=== PATIENT | female | born 1945 | race African-American/Black ===

== ENCOUNTER 2019-12-31 10:38 | Inpatient (IN) | payer MEDICARE ==
--- NOTE | 2019-12-31 10:57 | RAD ---
PORTABLE CHEST 1 VIEW: Date: 12/31/2019 Time: 1045 hours HISTORY: Altered mental status, respiratory failure. FINDINGS/IMPRESSION: There is an endotracheal tube with tip at the level of the clavicular heads. The heart is enlarged. T he aorta is tortuous. No pneumothoraces, lobar consolidation, adrienne pulmonary edema, or large effusio ns are seen. The patient is rotated to the left. POS: OFF
[2019-12-31 11:01] LABS: Actual Bicarbonate (HCO3a) 23.5 mEq/L (22-28); Analyzer IN Cardio ER; Base Excess (BEa) -1.1 mEq/L (-2.0 to +3.0); CO2 Tension 38.8 mmHg (35.0-45.0); Calcium, Ionized 1.13 mmol/L (1.12-1.30); Carboxyhemoglobin (COHb) 0.3 gm% (0.0-3.0); Hemoglobin (Hb) 11.8 g/dL (12.0-16.0); O2 Tension (PaO2) 268.7 mmHg (> 70.0)
[2019-12-31 11:05] LABS: Puncture Site LRA
[2019-12-31] MEDS ORDERED: Atropine Sulfate 1 mg/10 ml Syringe ONE (11:07)
[2019-12-31 11:34] LABS: #Eosinphils 0.1 thou/uL (0.0-0.7); #Lymphocytes 0.8 thou/uL (1.20-3.40); #Monocytes 0.6 thou/uL (0.11-0.59); #Neutrophils 5.5 thou/uL (1.40-6.50); %Basophils 0.7 % (0.0-1.0); %Lymphocytes 11.3 % (21.0-51.0); %Monocytes 8.1 % (0.0-10.0); Hemoglobin 11.4 g/dL (12.0-16.0); Mean Corpuscular Hemoglobin 28.9 pg (27.0-31.0); Mean Corpuscular Volume 87.6 fL (78.0-98.0); Mean Platelet Volume 9.7 fL (7.4-10.4); Platelet Count 170 thou/uL (130-400); RBC Distribution Width 13.3 % (11.5-14.5); Red Blood Cell (RBC) Count 3.94 mill/uL (4.20-5.40)
[2019-12-31 11:48] LABS: ALT (SGPT) 9 U/L (8-55); AST (SGOT) 19 U/L (5-34); Albumin 3.6 g/dL (3.4-4.8); Alkaline Phosphatase 72 U/L (40-110); Anion Gap 10 mmol/L (10-20); BUN (Urea Nitrogen) 10 mg/dL (9.8-20.1); Bilirubin, Total 0.5 mg/dL (0.2-1.2); CK (CPK) 146 U/L (29-168); Calc. Creatinine Clearance 0 mL/min (70-130); Calcium 9.1 mg/dL (7.8-10.44); Carbon Dioxide 23 mmol/L (23-31); Chloride 110 mmol/L (98-107); Estimated GFR-MDRD Greater than 90; Globulin 3.2 g/dL (2.4-3.5); Glucose 154 mg/dL (83-110); Potassium 3.4 mmol/L (3.5-5.1); Protein, Total 6.8 g/dL (6.0-8.3); Sodium 140 mmol/L (136-145)
--- NOTE | 2019-12-31 11:50 | CT ---
CT BRAIN NONCONTRAST: DATE: 12/31/2019 HISTORY: 74-year-old female with altered mental status. Unresponsive. Dr. Arias discussed the findings by telephone with Dr. Anderson of the ER at 11:33 AM 12/31/2019 COMPARISON: 11/06/2016 MRI No prior CTs FINDINGS: New finding of hematomas within bilateral lateral, third, and fourth ventricles. Volume of hematoma i n the left lateral ventricle greater than in the right lateral ventricle. This causes another new finding of diffuse dilation of all ventricles. Associated new finding of low attenuation throughout the periventricular white matter, at least some of which represents transependymal migration of CSF. Contiguous with the intraventricular hematoma in the frontal horn of the left lateral ventricle, ther e is an approximately 3 x 3 cm intra-axial hematoma at the inferior aspect of the left basal ganglia. Moderate sized region of encephalomalacia and gliosis in the left frontal lobe represents old insult. The prior MRI demonstrates strong hemosiderin stain at this lesion. The prior MRI also demonstrates superficial siderosis along the pial surfaces of bilateral upper cere bral gyri, evidence for prior subarachnoid hemorrhage. Currently there is small amount of subarachnoid hemorrhage in the prepontine cistern, foramen magnum, foramina of Luschka bilaterally. Interpeduncular cistern is effaced and filled with low-intermediate density material. No acute calvarial fracture. No subdural or epidural hematoma. No major midline shift. IMPRESSION: 1) large amount of intraventricular hematoma causing obstructive hydrocephalus. 2) the source of the hemorrhage is probably the left basal ganglia, spilling into the left lateral ve ntricle. Ruptured aneurysm would be the other, less likely source. 3) relatively smaller volume of subarachnoid hemorrhage is due to spillover from the fourth ventricul ar intraventricular hemorrhage 4) old insult in left frontal lobe: Either prior old primary intra-axial hemorrhage or old hemorrhagi c conversion of prior infarction. 5) superficial siderosis demonstrated on prior MRI indicates prior episode(s) of subarachnoid hemorrh age.
--- NOTE | 2019-12-31 12:27 | RAD ---
CHEST 1 VIEW: HISTORY: Central line placement. Comparison: 12/31/2019 at 10:45 AM. FINDINGS: Cardiac silhouette:Enlarged cardiac silhouette. Lines and tubes: Endotracheal tube is redemonstrated. Interval placement of a nasogastric tube, exten ding beyond the diaphragm. Distal tip is not seen. Interval placement of a left-sided subclavian central venous catheter. Distal tip is presumed to be in the right atrium when taking leftward rotati on into consideration. Aorta: Atherosclerosis of the aortic knob. Abnormal appearance of the aortic knob is noted. Pulmonary vessels: Normal. Costophrenic angles: Small left-sided pleural effusion. Adjacent parenchyma changes. Lungs: Left lower lobe parenchymal changes. Pneumothorax: None. Osseous abnormalities: None. IMPRESSION: 1. Lines and tubes as above. 2. No pneumothorax. 3. Pleural and parenchymal changes in the left lung base. 4. Abnormal appearance of the aortic knob. Further interrogation with chest CT may be beneficial. Results of the study discussed with Dr. Anderson 12/31/2019 at 12:26 PM Code CR Transcribed Date/Time: 12/31/2019 12:49 PM
--- NOTE | 2019-12-31 12:34 | CT ---
EXAM: CT ANGIOGRAM OF THE HEAD AND NECK INDICATION: Stroke. COMPARISON: None. TECHNIQUE: CT angiogram of the head is performed in the axial plane. Three-dimensional reformatted images are altman bmitted for interpretation. FINDINGS: CTA OF THE HEAD WITH AND WITHOUT CONTRAST: POSTCONTRAST CT OF BRAIN: Pathologic enhancement: No pathologic enhancement the brain. Ventricles: Stable markedly dilatation of the ventricular system with extensive intraventricular hemo rrhage throughout the ventricular system. The etiology of the hemorrhage is likely centered in the left basal ganglion. White matter: Extensive white matter hypodensities due to chronic small vessel ischemic changes. Sinuses: Mild mucosal disease and mucous retention cyst in the left maxillary sinus. Partial opacific ation of the left ethmoid air cells. Orbits: Bilateral ocular lenses are appropriately located. Both globes are intact. Retrobulbar fat is preserved. Symmetric attenuation the optic nerves and ocular rectus muscles. Salivary glands:Symmetric attenuation of the visualized parotid and submandibular glands. CTA OF THE BRAIN: Intracranial internal carotid arteries:Symmetric enhancement and luminal diameter of the visualized c ervical internal carotid arteries. Symmetric enhancement and luminal diameter of the intracranial internal carotid arteries. Atherosclerosis involving both distal cavernous segments, without signific ant stenosis . Anterior circulation: Symmetric enhancement and luminal diameter of the A1 and M1 segments. Proximal A2 segments and proximal MCA branches have appropriate enhancement and luminal diameter. No evidence of occlusion. No evidence of aneurysm. Intracranial vertebral arteries and posterior circulation: Appropriate enhancement and luminal diamet er of the intracranial vertebral arteries. Note, right vertebral artery is dominant. Visualized left and right PICA artery origins are unremarkable. Both vertebral arteries supply the basilar arter y. The predominant supply to the basilar artery is the right vertebral artery. The basilar artery and bilateral P1 segments have appropriate enhancement and luminal diameter. No evidence of occlusion or aneurysm. IMPRESSION: 1. No hemodynamically significant stenosis, occlusion or aneurysmal formation. 2. Extensive intraventricular hemorrhage with marked dilatation of ventricular system. There appears to be intraparenchymal hemorrhage centered in the left basal ganglia. Results of the study discussed with Dr. Anderson 12/31/2019 12:34 PM. Code CR Transcribed Date/Time: 12/31/2019 12:53 PM
[2019-12-31] MEDS ORDERED: hydrALAZINE 20 MG/ML VIAL ONE (12:36)
[2019-12-31] MEDS ORDERED: Lidocaine 0.5%/Epinephrine 1:200,000 50 ml Vial ONE (12:58)
[2019-12-31] MEDS ORDERED: Thrombin 5000 UNITS/5 ML VIAL ONE (13:08)
[2019-12-31 13:23] LABS: INR-International Normal Ratio 0.9; PTT 27.5 SEC (22.9-36.1); Prothrombin Time 12.6 SEC (12.0-14.7)
[2019-12-31] MEDS ORDERED: Fentanyl 100 MCG/2 ML VIAL ONE (13:37)
--- NOTE | 2019-12-31 13:52 | PRG ---
DATE OF SERVICE: 12/31/2019 I personally examined the patient, spoke with the family, reviewed imaging and agree with the notes of Carl Spears PA-C dated 12/31/2019. Briefly, Kathe Tyson is a 74-year-old woman who has a history notable for head trauma about 10-11 years ago, resulting in a left frontal contusion and bleeding in the brain from which she recovered nicely. She was independent. She managed her own bank accounts. She worked. She managed her own household. She can dress. She can take care of all her activities of daily living without difficulty prior to this morning. She was found by her sister down in her home either on the way to or the way back from the shower because she was not clothed. She was brought to the emergency department, where CT examination of the brain revealed intraventricular hemorrhage and some parenchymal hemorrhage in the inferior left insula. Early hydrocephalus was noted as well and Neurosurgery was consulted. On arrival to the emergency department, she had been previously intubated. Her sedatives are wearing off. The pupils were reactive. There is some minimal motion of the upper extremities. This was not purposeful in approach withdrawal although flexion could not be ruled out. The CT was examined and the findings are noted above. I had a discussion with Ms. Tyson's sister and other family members. I discussed the possibility of vascular malformation or aneurysm causing the hemorrhage but the more likely scenario of hypertension being responsible. I discussed with them the fact that the intraventricular portion of the hemorrhage was clogging circulation pathways for cerebrospinal fluid and she was developing hydrocephalus compounding the neurological injury. I offered to them the placement of an external ventricular drain. Informed Consent: I discussed indications, risks, benefits, alternatives, and expected outcomes from surgery. The risks I discussed included, but were not limited to, bleeding, infection, brain damage, stroke, seizure, paralysis, dependence for care, cardiopulmonary complications of anesthesia, and . They understand the risks. They would like to proceed. We will take Ms. Tyson to the operating room and place external ventricular drain and then send her upstairs to the ICU for continued management. Job ID: [id number]
[2019-12-31] MEDS ORDERED: EPHEDRINE 25 MG/5 ML SYRINGE ONE (14:38)
[2019-12-31] MEDS ORDERED: Rocuronium Bromide 10 MG/ML (10ML VIAL) ONE (14:38)
[2019-12-31] MEDS ORDERED: Promethazine HCl 12.5 MG SUPP PR PRN (14:48)
[2019-12-31] MEDS ORDERED: Acetaminophen 650 MG Suppository PR PRN (14:48)
[2019-12-31] MEDS ORDERED: Mag-Al 1200 mg/1200 mg/30 ML UDCUP PO PRN (14:48)
[2019-12-31] MEDS ORDERED: Morphine 4 MG/ML VIAL SLOW IVP PRN (14:48)
[2019-12-31] MEDS ORDERED: Promethazine HCl 25 MG/ML VIAL IM PRN (14:48)
[2019-12-31] MEDS ORDERED: Promethazine 25 MG TAB PO PRN (14:48)
[2019-12-31] MEDS ORDERED: Ondansetron PF 4 MG/2 ML Vial IVP PRN (14:48)
[2019-12-31] MEDS ORDERED: Docusate 100 MG CAP PO PRN (14:48)
[2019-12-31] MEDS: Sodium Chloride 0.9% 1,000 ML IV SCH (15:00)
--- NOTE | 2019-12-31 15:02 | HP ---
PRIMARY CARE PHYSICIAN: The patient currently does not have a primary care physician. CHIEF COMPLAINT: Found down at home. HISTORY OF PRESENT ILLNESS: Ms. Tyson is currently intubated and unable to give any history. I spoke with the patient's sister who tells me that Ms. Tyson has not seen a primary care doctor in some time. She says that she talked to her yesterday evening and she seemed fine. They had come back from charge. The patient lives home by herself and she still works. She got a call from the patient's job that said she never showed up for work. As a result, the patient's sister went to go check on her and found her down at home in the bathroom. She believes she may have been getting ready to take a shower, because she was undressed, and there was water on the floor. EMS was called. She was intubated in the field. She was brought to the hospital, where she was found to be hypothermic and bradycardic. A CT scan in the ER demonstrated a large intraventricular bleed. She is being admitted to the ICU, and Neurosurgery has been consulted. Otherwise, no other history is obtainable at this time. REVIEW OF SYSTEMS: Also unobtainable. PAST MEDICAL HISTORY: It is elucidated from the records and includes diabetes mellitus as well as hypertension and hyperlipidemia. PAST SURGICAL HISTORY: Unknown. She may have had a hysterectomy. ALLERGIES: NO KNOWN DRUG ALLERGIES. SOCIAL HISTORY: Also unobtainable. FAMILY HISTORY: Unknown. MEDICATIONS: These were taken from the patient's pharmacy records and includes metformin, losartan, and pravastatin, and her sister says that she believes she takes 81 mg aspirin daily. PHYSICAL EXAMINATION: GENERAL: She is intubated. She is currently not responding. HEENT: Her pupils are pinpoint and minimally reactive. NECK: She is in a C-collar. LUNGS: Clear to auscultation. No wheezing. No rales. No rhonchi. CARDIOVASCULAR: She has a normal S1 and S2. I did not appreciate an S3 or S4. No murmurs, clicks, or rubs. ABDOMEN: Soft and positive for bowel sounds. EXTREMITIES: There is no edema. NEUROLOGIC: Pupils are small, minimally reactive. She had decreased reflexes and a negative Babinski. SKIN AND INTEGUMENT: No skin changes. No rash. Again, CT scan showed a large intraventricular hemorrhage in both bilateral lateral ventricles, third and fourth ventricles as well. The patient had an EKG showing sinus bradycardia with Diaz waves in V4 and V5. LABORATORY DATA: White blood cell count is 7, hemoglobin 11.4, hematocrit is 34.5, and platelet count is 120. Sodium 140, potassium 3.4, chloride is 110, CO2 is 23, BUN of 10, creatinine 0.71, glucose is 154, and lactic acid is 3.0. ASSESSMENT: 1. This is a pleasant 74-year-old female, who is being admitted for a large intracerebral hemorrhage. Neurosurgery has been consulted, and the plan is to potentially place an intraventricular drain. The location of the bleed is thought to be from the left basal ganglion and could likely be a hypertensive bleed. For this reason, we will place her on a Cardene drip if needed. While they are in decision making regarding surgery, the blood pressure will be managed with IV hydralazine. 2. Diabetes mellitus. We will check her blood sugars and place her on a sliding scale. 3. We will monitor her electrolytes carefully and further recommendations to follow. Job ID: [id number]
--- NOTE | 2019-12-31 15:14 | OP ---
DATE OF PROCEDURE: 12/31/2019 ENGAGEMENT LIAISON: Carl Spears PA-C PREOPERATIVE INDICATION: Prevent neurological deterioration. PREOPERATIVE DIAGNOSES: Intraventricular hemorrhage and hydrocephalus. POSTOPERATIVE DIAGNOSES: Intraventricular hemorrhage and hydrocephalus. PROCEDURE PERFORMED: Placement of a right frontal external ventricular drain. PREOPERATIVE MEDICATION: Ancef 2 g IV. DRAIN NUMBER: One. DRAIN TYPE: External ventricular. DESCRIPTION OF PROCEDURE: The patient was brought to the operating room. The patient had previously been intubated. General anesthesia was induced. Hair was removed from the right side of the scalp with electric clippers. We planned out our incision anterior to the coronal suture in the midpupillary line on the right side. Under a planned incision, we infused local anesthetic. The scalp was sterilely prepped and draped. We opened a curvilinear incision with a 10 blade knife, and we controlled bleeding with bipolar cautery. We folded our scalp flap posteriorly and exposed the frontal bone. Anterior to the coronal suture, we placed a sukhjinder hole with a high-speed drill and a perforating bit. We waxed the bone edges. We coagulated the dura. We opened the dura in a cruciate fashion with a 15 blade knife and coagulated back the leaflets. We coagulated the aldo. We brought the external ventricular drain catheter into the field, and with a stylet, we advanced the catheter through the brain parenchyma into the frontal horn of the right lateral ventricle. This was done at one pass. The stylet was removed at 4.5 cm on the brain surface. Brisk CSF flow was noted. We advanced until the 7-cm monae was at the superior bone margin. We tunneled posteriorly through a separate stab incision. We irrigated with bacitracin irrigation. We closed our incision in anatomical layers. We tacked down the drain with multiple tack sutures, and we placed a sterile adhesive dressing. We connected the distal end of the ventricular catheter to the Hobbs drainage system. This was a clean case, no contamination. Job ID: [id number]
--- NOTE | 2019-12-31 15:20 | RAD ---
Portable frontal chest radiograph: 12/31/2019 COMPARISON: 12/31/2019 HISTORY: Intubated patient FINDINGS: This study is performed at 2:43 PM and compared to the prior examination performed 12:14 PM . Supine imaging limits assessment for pneumothorax and pleural fluid. Stable endotracheal tube, nasogastric tube, and left-sided vascular catheter. Mild linear density in the medial left lung base, nonspecific. IMPRESSION: No significant interval change.
[2019-12-31] MEDS ORDERED: Dextrose 5% in Water 1,000 ML IV PRN (15:33)
[2019-12-31] MEDS ORDERED: Dextrose 50% Abboject 50 ML SYRINGE SLOW IVP PRN (15:33)
[2019-12-31] MEDS ORDERED: HumaLOG 300 UNITS/3 ML VIAL SC PRN ×2 (15:33)
[2019-12-31 15:37] LABS: Actual Bicarbonate (HCO3a) 19.6 mEq/L (22-28); Base Excess (BEa) -3.3 mEq/L (-2.0 to +3.0); CO2 Tension 28.5 mmHg (35.0-45.0); Calcium, Ionized 1.14 mmol/L (1.12-1.30); Carboxyhemoglobin (COHb) 0.4 gm% (0.0-3.0); Hemoglobin (Hb) 10.6 g/dL (12.0-16.0); O2 Tension (PaO2) 127.5 mmHg (> 70.0); Potassium - ABG Lab 3.53 mmol/L (3.70-5.30); pH, Arterial 7.46 (7.35-7.45)
[2019-12-31 15:38] LABS: Puncture Site LRA
[2019-12-31 15:39] LABS: Lactic Acid 3.3 mmol/L (0.5-2.2)
[2019-12-31 15:39] LABS: ALV-art Gradient 122.075 (0-20)
[2019-12-31] MEDS ORDERED: Iopamidol-370 76% 500 ML 1 ML ONE (16:27)
[2019-12-31] MEDS: CEFAZOLIN 2 GM in Premix Bag 1 BAG IVPB SCH (16:58)
[2019-12-31 18:31] LABS: Bacteria/HPF None Seen HPF (None Seen); Bilirubin Negative (Negative); Blood, Urine Trace (Negative); Clarity Clear (Clear); Glucose, Urine (Dipstick) Normal (Negative); Leukocyte Negative Leu/uL (Negative); Nitrite Negative (Negative); Protein, Urine (Dipstick) Negative (Neg-Trace); Squamous Epithelial None Seen HPF (0-3); Urobilinogen Normal mg/dL (Less than 2); WBC/HPF 0-3 HPF (0-3)
[2019-12-31 18:33] LABS: Urine Culture Reflex No No
[2019-12-31] MEDS: Pantoprazole 40 MG VIAL IVP SCH (21:27)
[2019-12-31] MEDS: hydrALAZINE 20 MG/ML VIAL SLOW IVP PRN (23:26)
[2020-01-01] MEDS: CEFAZOLIN 2 GM in Premix Bag 1 BAG IVPB SCH ×3 (00:07→16:58)
--- NOTE | 2020-01-01 02:17 | CON ---
DATE OF CONSULTATION: 12/31/2019 Date of consult was 12/31/2019 from the emergency room. REASON FOR CONSULT: Stroke. The patient is not responding and intubated. CHIEF COMPLAINT: Previously intubated patient, not responding. HISTORY OF PRESENT ILLNESS: Ms. Tyson is a 74-year-old woman who had a history 10 or 11 years ago of a left frontal contusion with bleeding in the brain, from which she recovered. She was independent. She managed her own bank accounts. She worked, managed her own household, she could dress, and take care of all her activities of daily living without difficulties prior to this morning. She was found by her sister unconscious on the floor early this morning, called EMT, and was brought to this hospital. REVIEW OF SYSTEMS: Systems not reviewed due to the intubated patient. PAST MEDICAL HISTORY: Hypertension, hyperlipidemia, and diabetes. PAST SURGICAL HISTORY: Unknown. ALLERGIES: NO KNOWN DRUG ALLERGIES. SOCIAL HISTORY: Unobtainable. FAMILY HISTORY: Unknown. MEDICATIONS: Confirmed by pharmacist; 1. Metformin. 2. Losartan. 3. Pravastatin. PHYSICAL EXAMINATION: CONSTITUTION: The patient is unresponsive. HEENT: Her pupils are pinpoint and minimally reactive. NECK: She is in a C-collar. NEUROLOGICAL: Pupils are small, minimally reactive. She has decreased reflexes and negative Babinski. Motor and strength unattainable. LABORATORY DATA: Platelets 170,000. PT is 12.6, INR 0.9, and APTT 27.5. IMAGING: CT examination of the brain revealed intraventricular hemorrhage and some bronchial hemorrhage and inferior left insula. Early hydrocephalus was noted. Angiography was negative for for aneurysm. ASSESSMENT AND PLAN: External ventricular drain placement in the OR. Consent was given by her sister. INFORMED CONSENT: We discussed the indications, risks, benefits, alternatives, and expected outcomes from surgery. The risks I discussed included, but were not limited to, bleeding, infection, brain damage, stroke, seizure, paralysis dependent for care, cardiopulmonary complications of anesthesia, and . The family understood the risks, and they would like to proceed. Job ID: [id number] MTDD
[2020-01-01 04:33] LABS: #Lymphocytes 0.7 thou/uL (1.20-3.40); #Monocytes 0.8 thou/uL (0.11-0.59); #Neutrophils 7.3 thou/uL (1.40-6.50); %Basophils 0.1 % (0.0-1.0); %Eosinophils 0.2 % (0.0-10.0); %Lymphocytes 7.7 % (21.0-51.0); Hemoglobin 10.3 g/dL (12.0-16.0); Mean Corpuscular HGB CONC 34.4 g/dL (32.0-36.0); Mean Corpuscular Hemoglobin 29.6 pg (27.0-31.0); Mean Corpuscular Volume 86.1 fL (78.0-98.0); Platelet Count 170 thou/uL (130-400); RBC Distribution Width 13.3 % (11.5-14.5); Red Blood Cell (RBC) Count 3.48 mill/uL (4.20-5.40); White Blood Cell (WBC) Count 8.8 thou/uL (4.8-10.8)
[2020-01-01 04:55] LABS: Anion Gap 10 mmol/L (10-20); BUN (Urea Nitrogen) 7 mg/dL (9.8-20.1); Calc. Creatinine Clearance 104 mL/min (70-130); Carbon Dioxide 24 mmol/L (23-31); Chloride 112 mmol/L (98-107); Estimated GFR-MDRD Greater than 90; Glucose 118 mg/dL (83-110); Potassium 3.4 mmol/L (3.5-5.1); Sodium 143 mmol/L (136-145)
[2020-01-01] MEDS: hydrALAZINE 20 MG/ML VIAL SLOW IVP PRN ×4 (05:47→18:35)
[2020-01-01] MEDS: Sodium Chloride 0.9% 1,000 ML IV SCH ×2 (05:50→17:02)
[2020-01-01 07:09] LABS: Actual Bicarbonate (HCO3a) 21.8 mEq/L (22-28); Base Excess (BEa) -0.3 mEq/L (-2.0 to +3.0); CO2 Tension 27.8 mmHg (35.0-45.0); Calcium, Ionized 1.18 mmol/L (1.12-1.30); Carboxyhemoglobin (COHb) 0.3 gm% (0.0-3.0); Hemoglobin (Hb) 10.9 g/dL (12.0-16.0); O2 Tension (PaO2) 106.1 mmHg (> 70.0); Potassium - ABG Lab 3.24 mmol/L (3.70-5.30); pH, Arterial 7.51 (7.35-7.45)
[2020-01-01 07:10] LABS: Puncture Site LRA
--- NOTE | 2020-01-01 07:13 | PRG ---
DATE OF SERVICE: 01/01/2020 I saw Kathe Tyson in the ICU this morning. She has been down for her morning CT scan and has returned. Sometime thereafter, she had an increase in the amount of blood in her CSF drainage that has dissipated since. No other events reported. Overnight, the highest temperature recorded was early this morning at 100.0 degrees Fahrenheit. Blood pressures have been between the 120s and 160s. ICP has been 0 to 12. On examination, Ms. Tyson does not open her eyes to stimulus. However, she is now localizing with the left upper extremity and withdrawing the legs. This is an improvement in neurological function since yesterday. In the morning, CT scan shows decrease in the size of the ventricular system. We will continue to leave the drain in on Ms. Tyson. I anticipate that it will be there at least a week. We will continue antibiotics while it is in. We will monitor her neurological function. At some point next week, the family will have to decide on tracheostomy and gastrostomy. They are aware of this decision coming. Over the weekend, I do not plan any changes. We will leave the drain open at 5 cm. Job ID: [id number] [facility]
--- NOTE | 2020-01-01 07:20 | CON ---
DATE OF CONSULTATION: Kathe Tyson is a 74-year-old female from [place], [place]. She was found down at home. Sister states, her name is Sandra, that she did not show up to work, 911 was called and she was found at home on the floor. She was intubated, brought to the hospital here which revealed a large intraventricular hemorrhage. She is undergoing emergency frontal ventriculostomy to control her hemorrhage as well as her hydrocephalus. Presently intubated on the vent. Sister gives adequate history. PAST MEDICAL HISTORY: Diabetes, hypertension, hyperlipidemia, previous some kind of neurological problem, frontal injury. PAST SURGICAL HISTORY: Hysterectomy. CHRONIC MEDICATIONS: Unknown. The sister may have some information. SOCIAL AND FAMILY HISTORY: Unremarkable. ALLERGIES: NONE. REVIEW OF SYSTEMS: Otherwise, negative. PHYSICAL EXAMINATION: VITAL SIGNS: In the ICU pulse 66, blood pressure 165/85, sats 100%, respirations 16. CHEST: Decreased breath sounds, no wheezing. CARDIAC: Normal S1, S2. No gallops. ABDOMEN: No masses. LABORATORY DATA: White count 7000, H and H of 11 and 35, platelet count 170. PO2 is 127, pCO2 28, pH 7.46, 16, 40, and 500 tidal volume. Potassium 3.4. Lactic acid elevated. BNP is normal. Glucose 154. IMPRESSION: 1. Intraventricular hemorrhage, respiratory failure. 2. History of diabetes. 3. Hypertension. 4. High cholesterol. 5. Previous right frontal contusion. PLAN: Continue vent support, obviously she is not weanable at this stage until neurological status improves. She is on empiric antibiotics. We will start proton pump inhibitors, nutrition in the next 24 to 48 hours. Discuss with family thereafter. Prognosis is guarded. This is a 45-minute critical time. ADDENDUM: This sister now tells me that the only doctor she has been seeing now is a yard rigger. His name is Dr. Marcelo, who has been giving her all her medications for diabetes, hypertension. She has no other primary care physician that she sees. She has a leaky valve. Has had no other cardiac intervention apparently. 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 When she did not arrive, the group home called family to notify about her absence. I am going to order an echocardiogram to assess the cardiac function. Her blood pressure is low. Going to give her a fluid challenge. This is an ongoing note and 45-minute critical care time as above. Job ID: [id number]
[2020-01-01] MEDS ORDERED: CCU Electrolyte Replacement 1 EACH FS ONE (07:35)
[2020-01-01] MEDS ORDERED: PHOS-NAK 1 PKT PACK PO PRN ×2 (07:41)
[2020-01-01] MEDS ORDERED: Magnesium 2 GM/50 ML 2 GM in Premix Bag 1 BAG IVPB PRN (07:41)
[2020-01-01] MEDS ORDERED: CCU ELECTROLYTE REPLACEMENT PROTOCOL FS PRN (07:41)
[2020-01-01] MEDS ORDERED: Potassium Chloride 20 MEQ TAB PO PRN (07:41)
[2020-01-01] MEDS ORDERED: Potassium Chloride 40 MEQ in Premix Bag 1 BAG IVPB PRN (07:41)
[2020-01-01] MEDS ORDERED: Magnesium Oxide 400 MG TAB PO PRN ×2 (07:41)
[2020-01-01] MEDS ORDERED: Potassium Phosphate 15 MMOL in Sodium Chloride 0.9% 250 ML 250 ML IV PRN (07:41)
[2020-01-01] MEDS ORDERED: Potassium Chloride 40 MEQ in Sodium Chloride 0.9% 250 ML 250 ML IVPB PRN (07:41)
[2020-01-01] MEDS ORDERED: Potassium Phosphate 12 MMOL in Sodium Chloride 0.9% 250 ML 250 ML IV PRN (07:41)
[2020-01-01] MEDS ORDERED: Potassium Phosphate 9 MMOL in Sodium Chloride 0.9% 100 ML IVPB PRN (07:41)
--- NOTE | 2020-01-01 08:08 | CT ---
CT OF THE BRAIN WITHOUT CONTRAST: INDICATION: Status post craniotomy. COMPARISON: Prior CT of the brain dated 12/31/2019 at 11:22 a.m. FINDINGS: There has been interval placement of a right frontal sukhjinder hole and a ventricular catheter projecting into the anterior horn of the right lateral ventricle with the tip projecting to the level of the int erventricular septum. The hematoma seen within the left basal ganglia is stable measuring 3.3 cm. T here is stable prominent intraventricular hemorrhage filling the lateral ventricles, third ventricle, and fourth ventricle. The degree of distention of the lateral ventricles appears relatively stable. The degree of distention of the third ventricle is slightly less prominent measuring 1. Cm where pr eviously it measured 1.4 cm. The prominence of the lateral temporal horn to the lateral ventricle ap pears slightly less measuring 9.8 mm where previously it measured 1.2 cm. There is stable crowding o f the basilar cisterns. No midline shift is evident. Chronic small-vessel white matter ischemic dalila nge with a remote insult involving the left frontal lobe is similar appearing. Air fluid level seen within the left maxillary sinus is slightly more pronounced than on prior exam. IMPRESSION: 1. Interval right frontal sukhjinder hole with placement of an intraventricular shunt catheter. The degre e of hydrocephalus appears mildly improved from the prior exam. The degree of basilar cistern crowdi ng is similar-appearing. No midline shift is evident. 2. Size of intraparenchymal hematoma in the left basal ganglia is similar-appearing. 3. Stable chronic ischemic change. POS: NASRIN
--- NOTE | 2020-01-01 08:49 | PRG ---
DATE OF SERVICE: 01/01/2020 SUBJECTIVE: Kathe Tyson this morning remains intubated in the vent, unresponsive. Pressure device in place. OBJECTIVE: VITAL SIGNS: Pulse 70, blood pressure 130/70, saturations are 100%, respiratory rate 18, and afebrile. CHEST: No wheezing or crackles. CARDIAC: Normal S1 and S2. No gallops. ABDOMEN: No masses. LABORATORY DATA: Lytes are normal. White count 8000, platelet count is normal, and H and H unremarkable. PO2 of 106, pCO2 of 27, pH of 7.51. ASSESSMENT: 1. Intraventricular hemorrhage. 2. Respiratory failure. 3. Hypertension. PLAN: At this stage, continue vent support. Start low-dose feedings. She has had significant left basal ganglia intraparenchymal hematoma. One-half hour of critical time. We will follow. She is still not weanable. Job ID: [id number]
[2020-01-01] MEDS ORDERED: Prevnar 13-Val Conj/PF 0.5 ML SYRINGE IM ONE (09:00)
[2020-01-01] MEDS ORDERED: FLU VACC TS2019-20(65YR UP)/PF 180 MCG/0.5 ML SYRINGE IM ONE (09:00)
--- NOTE | 2020-01-01 09:35 | RAD ---
PORTABLE CHEST: History: Respiratory distress. Comparison: Prior day's study. FINDINGS: Endotracheal and NG tubes and left subclavian line are all unchanged in position. Patient is rotated on this examination making the retrocardiac region difficult to assess. I do not see any definite int erval change. IMPRESSION: Stable exam. POS: TPC
[2020-01-01] MEDS: Pantoprazole 40 MG VIAL IVP SCH ×2 (09:52→21:43)
--- NOTE | 2020-01-01 11:17 | PDOC.HOSPP ---
- Subjective Encounter Date: 01/01/20 Encounter Time: 11:15 Subjective: Ms. Tyson was seen today in follow-up of ICH and hypertension. She is intubated. She will respond to pain. - Objective Vital Signs & Weight: Vital Signs (12 hours) Temp Pulse Resp BP 01/01/20 10:37 67 147/72 H 01/01/20 10:05 70 139/64 01/01/20 06:50 76 115/57 L 01/01/20 06:00 23 H 01/01/20 05:47 62 163/75 H 01/01/20 04:00 100.0 F H 21 H 01/01/20 02:00 19 01/01/20 00:00 98.9 F 21 H 12/31/19 23:26 65 153/75 H Weight Admit Weight 193 lb 5.526 oz Weight 193 lb 5.536 oz Most Recent Monitor Data Heart Rate from ECG 73 NIBP 124/59 NIBP BP-Mean 80 Respiration from ECG 22 SpO2 100 I&O: 12/31/19 01/01/20 01/02/20 06:59 06:59 06:59 Intake Total 1631 Output Total 3549 Balance -1918 Result Diagrams: 01/01/20 03:15 01/01/20 03:15 Additional Labs: Accuchecks 01/01/20 01/01/20 01/01/20 10:21 04:28 00:15 POC Glucose 108 125 H 116 H 12/31/19 12/31/19 12/31/19 20:41 17:08 10:46 POC Glucose 124 H 131 H 150 H Hospitalist ROS - Medication Medications: Active Medications Generic Name Dose Route Start Last Admin Trade Name Freq PRN Reason Stop Dose Admin Hydralazine HCl 5 mg 12/31/19 14:48 01/01/20 10:37 Apresoline SLOW IVP 5 mg Q15MIN PRN Administration SBP > 160 mmHg Cefazolin Sodium/Dextrose 2 gm 50 mls @ 100 mls/hr 12/31/19 17:00 01/01/20 09 :52 / Device IVPB 50 mls [id number],1700 LALITA Administration Sodium Chloride 1,000 mls @ 75 mls/hr 12/31/19 15:00 01/01/20 05:50 Normal Saline 0.9% IV 1,000 mls .[id number] LALITA Administration Pantoprazole Sodium 40 mg 12/31/19 21:00 01/01/20 09:52 Protonix IVP 40 mg Q12HR LALITA Administration Potassium Chloride 40 meq 01/01/20 07:41 01/01/20 10:26 Klor-Con PER TUBE 40 meq ASDIR PRN Administration FOR SERUM K+ 2.5-3.5 - Exam Eye: PERRL, anicteric sclera Heart: RRR, no murmur, no gallops, no rubs, normal peripheral pulses Respiratory: CTAB, no wheezes, no rales, no ronchi, normal chest expansion, no tachypnea, normal percussion Gastrointestinal: soft, non-tender, non-distended, normal bowel sounds, no palpable masses, no hepatomegaly Extremities: no cyanosis Neurological: hemiplegia (right sided weakness, and aphasia, and some response to pain) Hosp A/P (1) ICH (intracerebral hemorrhage) Code(s): I61.9 - NONTRAUMATIC INTRACEREBRAL HEMORRHAGE, UNSPECIFIED Status: Acute (2) Hypertension Code(s): I10 - ESSENTIAL (PRIMARY) HYPERTENSION Status: Acute (3) Hypertensive crisis Code(s): I16.9 - HYPERTENSIVE CRISIS, UNSPECIFIED Status: Acute (4) Diabetes mellitus type 2 in nonobese Code(s): E11.9 - TYPE 2 DIABETES MELLITUS WITHOUT COMPLICATIONS Status: Acute - Plan * Acute ICH -s/p ventricular drain placement * She continues with Ventilator support * HTN- is a bit elevated- goal is for a systolic blood pressure under 140. Will re-start Losartan, and continue Amlodipine, and PRN medications * DM- will continue with SSI for now, her blood glucose has been on the lower side- anticipate re-starting metformin after her tube feeds have been initiated * Continue as per NS recommendations
[2020-01-01] MEDS ORDERED: Losartan 25 MG TAB PO ONE (11:30)
[2020-01-02] MEDS: CEFAZOLIN 2 GM in Premix Bag 1 BAG IVPB SCH ×3 (00:56→17:34)
[2020-01-02 03:55] LABS: #Lymphocytes 0.9 thou/uL (1.20-3.40); #Monocytes 1.3 thou/uL (0.11-0.59); #Neutrophils 9.4 thou/uL (1.40-6.50); %Basophils 0.3 % (0.0-1.0); %Eosinophils 0.1 % (0.0-10.0); %Lymphocytes 7.4 % (21.0-51.0); %Monocytes 10.9 % (0.0-10.0); %Neutrophils 81.3 % (42.0-75.0); Hemoglobin 10.2 g/dL (12.0-16.0); Mean Corpuscular Hemoglobin 29.6 pg (27.0-31.0); Mean Corpuscular Volume 87.1 fL (78.0-98.0); Mean Platelet Volume 10.1 fL (7.4-10.4); Platelet Count 163 thou/uL (130-400); RBC Distribution Width 13.6 % (11.5-14.5); Red Blood Cell (RBC) Count 3.46 mill/uL (4.20-5.40); White Blood Cell (WBC) Count 11.5 thou/uL (4.8-10.8)
[2020-01-02 04:15] LABS: ALT (SGPT) Less than 7 U/L (8-55); AST (SGOT) 10 U/L (5-34); Albumin 3.6 g/dL (3.4-4.8); Alkaline Phosphatase 64 U/L (40-110); Anion Gap 10 mmol/L (10-20); BUN (Urea Nitrogen) 8 mg/dL (9.8-20.1); Bilirubin, Total 0.5 mg/dL (0.2-1.2); Calc. Creatinine Clearance 101 mL/min (70-130); Calcium 9.3 mg/dL (7.8-10.44); Carbon Dioxide 25 mmol/L (23-31); Chloride 113 mmol/L (98-107); Estimated GFR-MDRD Greater than 90; Globulin 3.2 g/dL (2.4-3.5); Glucose 126 mg/dL (83-110); Potassium 3.4 mmol/L (3.5-5.1); Protein, Total 6.8 g/dL (6.0-8.3); Sodium 145 mmol/L (136-145)
[2020-01-02 06:37] LABS: Actual Bicarbonate (HCO3a) 24.6 mEq/L (22-28); Base Excess (BEa) 1.5 mEq/L (-2.0 to +3.0); CO2 Tension 33.2 mmHg (35.0-45.0); Calcium, Ionized 1.22 mmol/L (1.12-1.30); Carboxyhemoglobin (COHb) 0.3 gm% (0.0-3.0); Hemoglobin (Hb) 10.2 g/dL (12.0-16.0); O2 Tension (PaO2) 120.3 mmHg (> 70.0); Potassium - ABG Lab 3.96 mmol/L (3.70-5.30); Puncture Site RRA; pH, Arterial 7.49 (7.35-7.45)
[2020-01-02] MEDS: Losartan 25 MG TAB PO SCH (09:05)
[2020-01-02] MEDS: Pantoprazole 40 MG VIAL IVP SCH ×2 (09:06→20:33)
[2020-01-02] MEDS: Sodium Chloride 0.9% 1,000 ML IV SCH (09:06)
[2020-01-02] MEDS ORDERED: Sodium Chloride 0.9% 1,000 ML IV SCH (10:12)
--- NOTE | 2020-01-02 10:20 | PDOC.HOSPP ---
- Subjective Encounter Date: 01/02/20 Encounter Time: 10:18 Subjective: THe patient is unresponsive . She is still intubated, is not on any sedation. She withdraws to painful stimuli, is weakest on RUE per nursing staff. She is s/ p EVD two days ago Tube feeds were started yesterday, currently at 45 - Objective Vital Signs & Weight: Vital Signs (12 hours) Temp Pulse Resp BP 01/02/20 10:03 76 146/70 H 01/02/20 07:33 74 131/66 01/02/20 06:00 23 H 01/02/20 04:45 80 01/02/20 04:00 98.8 F 18 01/02/20 02:00 19 01/02/20 01:10 70 137/61 01/02/20 00:00 98.4 F 17 Weight Admit Weight 193 lb 5.526 oz Weight 193 lb 5.536 oz Most Recent Monitor Data Heart Rate from ECG 79 NIBP 138/69 NIBP BP-Mean 92 Respiration from ECG 19 SpO2 97 I&O: 01/01/20 01/02/20 01/03/20 06:59 06:59 06:59 Intake Total 1631 2907 Output Total 3549 2153 Balance -1918 754 Result Diagrams: 01/02/20 03:00 01/02/20 03:00 Additional Labs: Accuchecks 01/01/20 01/01/20 01/01/20 22:24 16:04 10:21 POC Glucose 141 H 106 108 Hospitalist ROS - Review of Systems ROS unobtainable: due to endotracheal tube - Medication Medications: Active Medications Generic Name Dose Route Start Last Admin Trade Name Freq PRN Reason Stop Dose Admin Hydralazine HCl 5 mg 12/31/19 14:48 01/01/20 18:35 Apresoline SLOW IVP 5 mg Q15MIN PRN Administration SBP > 160 mmHg Cefazolin Sodium/Dextrose 2 gm 50 mls @ 100 mls/hr 12/31/19 17:00 01/02/20 09 :05 / Device IVPB 50 mls [id number] LALITA Administration Potassium Chloride 40 meq/ 100 mls @ 50 mls/hr 01/01/20 07:41 01/02/20 04:34 Device IVPB 100 mls ASDIR PRN Administration FOR SERUM K+ 2.5 - 3.5 Losartan Potassium 25 mg 01/02/20 09:00 01/02/20 09:05 Cozaar PO 25 mg DAILY LALITA Administration Pantoprazole Sodium 40 mg 12/31/19 21:00 01/02/20 09:06 Protonix IVP 40 mg Q12HR LALITA Administration Potassium Chloride 40 meq 01/01/20 07:41 01/01/20 10:26 Klor-Con PER TUBE 40 meq ASDIR PRN Administration FOR SERUM K+ 2.5-3.5 - Exam General Appearance: NAD Eye: PERRL, anicteric sclera ENT: normocephalic atraumatic, no oropharyngeal lesions Neck: supple, symmetric, no JVD Heart - other findings: systolic murmur left second intercostal space Respiratory: negative: CTAB, no wheezes, no rales Gastrointestinal: negative: soft, non-tender, non-distended, normal bowel sounds Hosp A/P (1) ICH (intracerebral hemorrhage) Code(s): I61.9 - NONTRAUMATIC INTRACEREBRAL HEMORRHAGE, UNSPECIFIED Status: Acute (2) Hypertension Code(s): I10 - ESSENTIAL (PRIMARY) HYPERTENSION Status: Acute (3) Diabetes mellitus type 2 in nonobese Code(s): E11.9 - TYPE 2 DIABETES MELLITUS WITHOUT COMPLICATIONS Status: Acute (4) Anemia Code(s): D64.9 - ANEMIA, UNSPECIFIED Status: Acute (5) Hypokalemia Code(s): E87.6 - HYPOKALEMIA Status: Acute (6) Leukocytosis Code(s): D72.829 - ELEVATED WHITE BLOOD CELL COUNT, UNSPECIFIED Status: Acute - Plan CT brain: size of intraparenchymal hemorrhage in left basal ganglia similar appearing This is a 74 year old female who was found unresponsive, presented with intraventricular hemorrage IVH - repeat CT head stable. EVD at 6. NEurosurgery following Hypertension - will reduce IV fluids to 20/hour - if still elevated then increase po losartan Malnutrition - tube feeds started yesterday Type II DM - blood sugars controlled. Change acchuchecks to q4 h Hypokalemia - potassium 3.4. Continue RER replacement Leukocytosis: WBC up to 11.5. UA negative. Chest X ray appears okay. Will monitor for fevers. She is on IV cefazolin Anemia - Hb stable at 10.1
--- NOTE | 2020-01-02 10:39 | RAD ---
PORTABLE SEMIUPRIGHT FRONTAL CHEST RADIOGRAPH: 01/02/2020 HISTORY: Ventilated patient. COMPARISON: 01/01/2020 FINDINGS: Mild hazy persistent increased density noted in the left base. The right lung appears clear. Stable e ndotracheal tube, nasogastric tube and left vascular catheter. IMPRESSION: Stable appearance of the chest as above. POS: [facility]
[2020-01-02] MEDS: hydrALAZINE 20 MG/ML VIAL SLOW IVP PRN ×2 (11:50→18:49)
--- NOTE | 2020-01-02 11:54 | PRG ---
DATE OF SERVICE: 01/02/2020 Ms. Tyson is postoperative day 2 following placement of external ventricular drain. Head CT yesterday, satisfactory decompression of ventricular system and robust intraventricular hemorrhage. Her EVD remains functional with serosanguineous output as expected. It is open at 5 cm of water and output is approximately 5 to 25 mL/h. ICP max has been 11 mmHg. She is hemiplegic on the right side, but does move the left side spontaneously. We will continue current cares. Job ID: [id number]
--- NOTE | 2020-01-02 17:30 | PRG ---
DATE OF SERVICE: 01/02/2020 SUBJECTIVE: Kathe Tyson remains mechanically ventilated. OBJECTIVE: VITAL SIGNS: Heart rates in the 90s, blood pressure 120/67, respiratory rate in the teens to low 20s. LUNGS: Clear. HEART: Regular rhythm. ABDOMEN: Soft. LABORATORY DATA: White count 11.5, hemoglobin 10.2, platelets 163. Sodium 145, potassium 3.4, chloride 113, bicarb 25, BUN 8, creatinine 0.69. Intake and output are positive 754. She had 46 mL reported CSF drainage. IMPRESSION AND PLAN: Respiratory failure associated with a ventricular hemorrhage. She remains hemiplegic on the right, mechanically ventilated. I met with family and answered all their questions. CRITICAL CARE TIME: 30 minutes. Job ID: [id number]
[2020-01-02] MEDS: Morphine 2 MG/ML SYRINGE SLOW IVP PRN (20:31)
[2020-01-03] MEDS: CEFAZOLIN 2 GM in Premix Bag 1 BAG IVPB SCH ×3 (00:13→17:58)
[2020-01-03 04:11] LABS: Mean Corpuscular HGB CONC 34.7 g/dL (32.0-36.0); Mean Corpuscular Hemoglobin 30.2 pg (27.0-31.0); Mean Corpuscular Volume 87.2 fL (78.0-98.0); Mean Platelet Volume 9.9 fL (7.4-10.4); Platelet Count 171 thou/uL (130-400); RBC Distribution Width 13.6 % (11.5-14.5); White Blood Cell (WBC) Count 8.8 thou/uL (4.8-10.8)
[2020-01-03 04:36] LABS: ALT (SGPT) Less than 7 U/L (8-55); AST (SGOT) 10 U/L (5-34); Albumin 3.5 g/dL (3.4-4.8); Alkaline Phosphatase 57 U/L (40-110); Anion Gap 12 mmol/L (10-20); BUN (Urea Nitrogen) 13 mg/dL (9.8-20.1); Bilirubin, Total 0.4 mg/dL (0.2-1.2); Calc. Creatinine Clearance 104 mL/min (70-130); Calcium 9.2 mg/dL (7.8-10.44); Carbon Dioxide 26 mmol/L (23-31); Chloride 113 mmol/L (98-107); Estimated GFR-MDRD Greater than 90; Globulin 3.4 g/dL (2.4-3.5); Glucose 120 mg/dL (83-110); Potassium 3.7 mmol/L (3.5-5.1); Protein, Total 6.9 g/dL (6.0-8.3); Sodium 147 mmol/L (136-145)
[2020-01-03 08:05] LABS: Actual Bicarbonate (HCO3a) 25.5 mEq/L (22-28); CO2 Tension 35.4 mmHg (35.0-45.0); Carboxyhemoglobin (COHb) 0.6 gm% (0.0-3.0); Hemoglobin (Hb) 10.8 g/dL (12.0-16.0); O2 Tension (PaO2) 115.5 mmHg (> 70.0); Potassium - ABG Lab 3.72 mmol/L (3.70-5.30); pH, Arterial 7.48 (7.35-7.45)
[2020-01-03 08:06] LABS: Puncture Site RRA
--- NOTE | 2020-01-03 08:58 | RAD ---
PORTABLE SEMIUPRIGHT FRONTAL CHEST RADIOGRAPH: 01/03/2020 HISTORY: Ventilated patient. COMPARISON: 01/02/2020 FINDINGS: Stable endotracheal tube, nasogastric tube and left sided vascular catheter. Right lung is clear. Den se opacity in the left base suggests nonspecific left lower lobe consolidation/collapse. IMPRESSION: No significant interval change. POS: [facility]
[2020-01-03] MEDS: hydrALAZINE 20 MG/ML VIAL SLOW IVP PRN ×2 (09:04→11:19)
[2020-01-03] MEDS: Pantoprazole 40 MG VIAL IVP SCH ×2 (09:06→20:47)
[2020-01-03] MEDS: Losartan 25 MG TAB PO SCH (09:06)
--- NOTE | 2020-01-03 11:11 | PRG ---
DATE OF SERVICE: 01/03/2020 This is Fabricio Cervantes PA-C dictating a report for Junior Guillory MD. Ms. Tyson is hospital day #3, having sustained bilateral intraventricular hemorrhage with EVD placement. Her ICPs have increased slightly with ICP mean ranging 7 to 18. Output has been ranging from roughly 6 to 15 mL an hour. According to nursing staff, she is more awake today and she does appear to have significant more movement in the extremities including bilateral upper extremities and right lower extremity. She has minimal movement at this time in the left lower extremity. We will continue to monitor the patient. We would like to keep the EVD open at 5 cm of water. We are pleased with her improvement in neurologic status. Please call with any changes in patient's neurologic exam. Otherwise, the patient remains stable. She is still on Ancef. Job ID: [id number]
--- NOTE | 2020-01-03 15:06 | PDOC.HOSPP ---
- Subjective Encounter Date: 01/03/20 Encounter Time: 13:00 Subjective: The patient is still intubated. SHe does respond to some noxious stimuli. - Objective Vital Signs & Weight: Vital Signs (12 hours) Temp Pulse Resp BP Pulse Ox 01/03/20 14:50 97 119/61 01/03/20 14:00 20 01/03/20 12:00 99.0 F 21 H 01/03/20 11:19 80 144/70 H 01/03/20 10:56 80 144/70 H 01/03/20 10:00 17 01/03/20 09:04 81 128/74 01/03/20 08:00 99.2 F 24 H 100 01/03/20 07:55 81 128/74 01/03/20 06:00 20 01/03/20 04:13 86 01/03/20 04:00 99.5 F 15 Weight Admit Weight 193 lb 5.526 oz Weight 193 lb 5.536 oz Most Recent Monitor Data Heart Rate from ECG 88 NIBP 129/65 NIBP BP-Mean 86 Respiration from ECG 24 SpO2 98 I&O: 01/02/20 01/03/20 01/04/20 06:59 06:59 06:59 Intake Total 2907 2427.5 110 Output Total 2153 2302 849 Balance 754 125.5 -739 Result Diagrams: 01/03/20 03:51 01/03/20 03:51 Additional Labs: Accuchecks 01/03/20 01/03/20 01/03/20 12:56 10:12 03:31 POC Glucose 113 H 106 121 H 01/02/20 01/02/20 22:15 16:06 POC Glucose 140 H 128 H Hospitalist ROS - Medication Medications: Active Medications Generic Name Dose Route Start Last Admin Trade Name Freq PRN Reason Stop Dose Admin Hydralazine HCl 5 mg 12/31/19 14:48 01/03/20 11:19 Apresoline SLOW IVP 5 mg Q15MIN PRN Administration SBP > 160 mmHg Cefazolin Sodium/Dextrose 2 gm 50 mls @ 100 mls/hr 12/31/19 17:00 01/03/20 09 :06 / Device IVPB 50 mls [id number],1700 LALITA Administration Potassium Chloride 40 meq/ 100 mls @ 50 mls/hr 01/01/20 07:41 01/02/20 04:34 Device IVPB 100 mls ASDIR PRN Administration FOR SERUM K+ 2.5 - 3.5 Losartan Potassium 25 mg 01/02/20 09:00 01/03/20 09:06 Cozaar PO 25 mg DAILY LALITA Administration Morphine Sulfate 2 mg 12/31/19 14:48 01/02/20 20:31 Morphine SLOW IVP 2 mg Q1H PRN Administration Moderate Breakthrough Pain Pantoprazole Sodium 40 mg 12/31/19 21:00 01/03/20 09:06 Protonix IVP 40 mg Q12HR LALITA Administration Potassium Chloride 40 meq 01/01/20 07:41 01/01/20 10:26 Klor-Con PER TUBE 40 meq ASDIR PRN Administration FOR SERUM K+ 2.5-3.5 - Exam General Appearance: NAD General - other findings: intubated. Off sedation. She opens eyes to name Eye: PERRL, anicteric sclera ENT: normocephalic atraumatic, no oropharyngeal lesions Neck: no JVD Heart: RRR, no gallops, no rubs, normal peripheral pulses Heart - other findings: systolic murmur right second intercostal space Gastrointestinal: soft, non-tender, non-distended, normal bowel sounds Extremities: no cyanosis, no clubbing, no edema Skin: normal turgor, no rashes Neurological: cranial nerve grossly intact, normal sensation to touch, no focal deficits Neurological - other findings: She is spontaneously moving both legs and left arm, weak on right arm Hosp A/P (1) ICH (intracerebral hemorrhage) Code(s): I61.9 - NONTRAUMATIC INTRACEREBRAL HEMORRHAGE, UNSPECIFIED Status: Acute (2) Hypertension Code(s): I10 - ESSENTIAL (PRIMARY) HYPERTENSION Status: Acute (3) Diabetes mellitus type 2 in nonobese Code(s): E11.9 - TYPE 2 DIABETES MELLITUS WITHOUT COMPLICATIONS Status: Acute (4) Anemia Code(s): D64.9 - ANEMIA, UNSPECIFIED Status: Acute (5) Hypokalemia Code(s): E87.6 - HYPOKALEMIA Status: Acute (6) Leukocytosis Code(s): D72.829 - ELEVATED WHITE BLOOD CELL COUNT, UNSPECIFIED Status: Acute - Plan CT brain: size of intraparenchymal hemorrhage in left basal ganglia similar appearing Chest X ray 01/03: left lower lobe consolidation vs collapse This is a 74 year old female who was found unresponsive, presented with intraventricular hemorrage IVH s/p intubation - repeat CT head stable on 01/01. EVD at 6. NEurosurgery following - blood gas appears stable. Vent management per critical care #Hypernatremia #Malnutrition - sodium up to 147. Will d/c IV fluids and continue tube feeding. Could increase free water flushes Hypertension - controlled -continue losartan Type II DM - blood sugars controlled.Blood sugars q6 hours Hypokalemia - potassium 3.4. Continue RER replacement Leukocytosis: Resolved. UA negative. Chest X ray shows possible LLL consolidation . Anemia - Hb stable at 10.1 Code status: full code
--- NOTE | 2020-01-03 16:42 | PRG ---
DATE OF SERVICE: 01/03/2020 SUBJECTIVE: Ms. Tyson remains hemodynamically stable. Her family feels she is doing more. OBJECTIVE: VITAL SIGNS: Blood pressure 119/61, heart rate 97, respiratory rates in the low 20s, oximetry is in the high 90s. LUNGS: Clear. HEART: Regular rhythm. ABDOMEN: Soft. EXTREMITIES: Without edema. LABORATORY DATA: White count 8.8, hemoglobin 10.0, platelets 171. Sodium 147, potassium 3.7, chloride 113, bicarb 26, BUN 13, creatinine 0.67. Intake and outputs, positive 125. 249 mL drained. IMPRESSION: Respiratory failure associated with left basal ganglia parenchymal hemorrhage with a right frontal external ventricular drain in place. We will continue to follow. She is not weanable at this point in time. Job ID: [id number]
[2020-01-03] MEDS: Morphine 2 MG/ML SYRINGE SLOW IVP PRN (18:29)
[2020-01-03] MEDS: Acetaminophen 325 MG TAB PO PRN (20:54)
[2020-01-04] MEDS: CEFAZOLIN 2 GM in Premix Bag 1 BAG IVPB SCH ×3 (00:55→16:20)
[2020-01-04 05:00] LABS: Anion Gap 11 mmol/L (10-20); BUN (Urea Nitrogen) 16 mg/dL (9.8-20.1); Calc. Creatinine Clearance 107 mL/min (70-130); Calcium 9.3 mg/dL (7.8-10.44); Carbon Dioxide 31 mmol/L (23-31); Chloride 111 mmol/L (98-107); Estimated GFR-MDRD Greater than 90; Glucose 113 mg/dL (83-110); Hemoglobin 10.2 g/dL (12.0-16.0); Mean Corpuscular HGB CONC 33.3 g/dL (32.0-36.0); Mean Corpuscular Hemoglobin 29.2 pg (27.0-31.0); Mean Corpuscular Volume 87.9 fL (78.0-98.0); Mean Platelet Volume 9.6 fL (7.4-10.4); Platelet Count 190 thou/uL (130-400); Potassium 3.7 mmol/L (3.5-5.1); RBC Distribution Width 13.5 % (11.5-14.5); Red Blood Cell (RBC) Count 3.51 mill/uL (4.20-5.40); Sodium 149 mmol/L (136-145); White Blood Cell (WBC) Count 6.9 thou/uL (4.8-10.8)
--- NOTE | 2020-01-04 06:44 | PRG ---
DATE OF SERVICE: 01/04/2020 I saw Ms. Tyson in the ICU this morning. Over the weekend, Dr. Guillory reports slight increase in her neurological function. In the last 24 hours, temperature I see recorded is 99.9 degrees Fahrenheit. On my examination, Ms. Tyson requires quite a bit of stimulus but eventually will localize with both upper extremities and open her eyes. I believe she follows commands by wiggling her toes on the right foot when I asked her to. This is all improvement since Saturday. The drain remains open at 5 cm of water. I will get a CT scan of the brain today to assess how much residual blood there is in the ventricular system in the parenchyma of the left hemisphere. We may have an opportunity to start weaning the drain by raising it to 10 cm later today, 15 tomorrow and clamping the next day. We will make that decision based on the CT scan. I will make sure an ultrasound of the lower extremities has been done or gets done today. Job ID: [id number]
[2020-01-04 07:02] LABS: ALV-art Gradient 84.625 (0-20); Actual Bicarbonate (HCO3a) 29.4 mEq/L (22-28); Base Excess (BEa) 5.1 mEq/L (-2.0 to +3.0); CO2 Tension 42.3 mmHg (35.0-45.0); Calcium, Ionized 1.22 mmol/L (1.12-1.30); Carboxyhemoglobin (COHb) 0.1 gm% (0.0-3.0); O2 Tension (PaO2) 76.4 mmHg (> 70.0); Potassium - ABG Lab 3.74 mmol/L (3.70-5.30); Puncture Site LRA; pH, Arterial 7.46 (7.35-7.45)
--- NOTE | 2020-01-04 08:56 | PRG ---
DATE OF SERVICE: SUBJECTIVE: Kathe Tyson this morning remains intubated in the vent. No sedation. OBJECTIVE: VITAL SIGNS: Maximum temperature is 99, pulse 84, blood pressure 142/73, saturations _97%_ I's and O's have been consistently even. CHEST: Minimal rhonchi. CARDIAC: Normal S1 and S2. No gallops. ABDOMEN: No masses. LABORATORY DATA: White count 6000. H and H unremarkable. Platelet count is normal. Lytes are normal. Glucose 113. Chest x-ray shows no acute infiltrates. PO2 is 76, pCO2 of 40%, pH 7.46. ASSESSMENT: Subarachnoid hemorrhage, intraparenchymal hemorrhage, respiratory failure, hypertension. PLAN: At this stage not weanable until much more responsive. Empiric antibiotics, PT and supportive care. Nutrition. One-half hour of critical time. Job ID: [id number] MTDD
[2020-01-04] MEDS ORDERED: Prevnar 13-Val Conj/PF 0.5 ML SYRINGE IM ONE (09:00)
[2020-01-04] MEDS ORDERED: FLU VACC TS2019-20(65YR UP)/PF 180 MCG/0.5 ML SYRINGE IM ONE (09:00)
--- NOTE | 2020-01-04 09:23 | RAD ---
PORTABLE CHEST: INDICATION: Ventilator. CCU followup. COMPARISON: 01/03/2020. FINDINGS: The patient is rotated. Cardiomegaly. Vascularity is mildly prominent. No focal infiltrate. NG Tu be remains in place. Central line is unchanged. Mild left basilar atelectasis again noted less prom inent than on the prior study. IMPRESSION: No acute interval change. POS: [facility]
[2020-01-04] MEDS: Losartan 25 MG TAB PO SCH (10:14)
[2020-01-04] MEDS: Pantoprazole 40 MG VIAL IVP SCH ×2 (10:14→21:41)
[2020-01-04] MEDS: Dextrose 5% in Water 1,000 ML IV SCH (10:15)
--- NOTE | 2020-01-04 10:53 | ULT ---
BILATERAL LOWER EXTREMITY VENOUS DUPLEX ULTRASOUND INCLUDING COLOR AND SPECTRAL DOPPLER IMAGING: HISTORY: Immobility, respiratory insufficiency status post craniotomy. Prior intracranial hemorrhage. FINDINGS: Exam is performed from groin to ankle including visualized greater saphenous, common femoral, superfi cial femoral, profunda femoral, popliteal, trifurcation, and posterior tibial vein regions. Phasic f low is noted at all levels with normal compressibility and normal augmentation. No intraluminal thro mbus. IMPRESSION: No evidence for deep venous thrombosis. Very minimal superficial subcutaneous edema. POS: [facility]
--- NOTE | 2020-01-04 11:55 | CT ---
CT BRAIN PERFORMED WITHOUT CONTRAST ENHANCEMENT: Date: 01/04/2020 HISTORY: Follow-up of bleed. COMPARISON: 01/01/2020 study. FINDINGS: The left basal ganglia hemorrhage and intraventricular blood is stable as compared to the prior exami nation. Decreased attenuation of the periventricular white matter persists. The ventricular peritonea l shunt tube is unchanged in position. No new findings are noted. IMPRESSION: Stable exam. POS: [facility]
[2020-01-04] MEDS: Morphine 2 MG/ML SYRINGE SLOW IVP PRN (16:21)
[2020-01-04] MEDS: Acetaminophen 325 MG TAB PO PRN (16:22)
--- NOTE | 2020-01-04 17:45 | PDOC.HOSPP ---
- Subjective Encounter Date: 01/04/20 Encounter Time: 14:00 Subjective: The patient is intubated. SHe is unable to follow any commands still. She is unable to be weaned from the ventilator Has tube feedings running. Sodium increasing today - Objective Vital Signs & Weight: Vital Signs (12 hours) Temp Pulse Resp BP 01/04/20 16:00 100.5 F H 16 01/04/20 14:09 94 141/83 H 01/04/20 14:00 16 01/04/20 12:00 99.3 F 15 01/04/20 11:13 79 138/69 01/04/20 10:00 14 01/04/20 08:00 99.6 F 12 01/04/20 06:27 69 142/74 H 01/04/20 05:55 15 Weight Admit Weight 193 lb 5.526 oz Weight 193 lb 5.536 oz Most Recent Monitor Data Heart Rate from ECG 96 NIBP 123/68 NIBP BP-Mean 86 Respiration from ECG 17 SpO2 97 I&O: 01/03/20 01/04/20 01/05/20 06:59 06:59 06:59 Intake Total 2427.5 1794 30 Output Total 2302 2718 1310 Balance 125.5 -924 -1280 Result Diagrams: 01/04/20 04:22 01/04/20 04:22 Additional Labs: Accuchecks 01/04/20 01/04/20 01/04/20 16:55 11:40 04:25 POC Glucose 118 H 132 H 113 H 01/03/20 01/03/20 22:27 17:47 POC Glucose 121 H 122 H Hospitalist ROS - Medication Medications: Active Medications Generic Name Dose Route Start Last Admin Trade Name Freq PRN Reason Stop Dose Admin Acetaminophen 650 mg 12/31/19 14:48 01/04/20 16:22 Tylenol PO 650 mg Q4H PRN Administration Headache/Fever Or Mild Pain Docusate Sodium 100 mg 12/31/19 14:48 01/04/20 16:22 Colace PO 100 mg BIDPRN PRN Administration Constipation Hydralazine HCl 5 mg 12/31/19 14:48 01/03/20 11:19 Apresoline SLOW IVP 5 mg Q15MIN PRN Administration SBP > 160 mmHg Cefazolin Sodium/Dextrose 2 gm 50 mls @ 100 mls/hr 12/31/19 17:00 01/04/20 16 :20 / Device IVPB 50 mls 0100,0900,1700 LALITA Administration Potassium Chloride 40 meq/ 100 mls @ 50 mls/hr 01/01/20 07:41 01/02/20 04:34 Device IVPB 100 mls ASDIR PRN Administration FOR SERUM K+ 2.5 - 3.5 Dextrose/Water 1,000 mls @ 75 mls/hr 01/04/20 10:00 01/04/20 10:15 D5w IV 1,000 mls .[id number] LALITA Administration Losartan Potassium 25 mg 01/02/20 09:00 01/04/20 10:14 Cozaar PO 25 mg DAILY LALITA Administration Morphine Sulfate 2 mg 12/31/19 14:48 01/04/20 16:21 Morphine SLOW IVP 2 mg Q1H PRN Administration Moderate Breakthrough Pain Pantoprazole Sodium 40 mg 12/31/19 21:00 01/04/20 10:14 Protonix IVP 40 mg Q12HR LALITA Administration Potassium Chloride 40 meq 01/01/20 07:41 01/01/20 10:26 Klor-Con PER TUBE 40 meq ASDIR PRN Administration FOR SERUM K+ 2.5-3.5 - Exam General Appearance: NAD, awake alert Eye: PERRL, anicteric sclera ENT: normocephalic atraumatic, no oropharyngeal lesions Neck: supple, no JVD Heart: RRR, no murmur, no gallops, no rubs Respiratory: CTAB, no wheezes, no rales, no ronchi Gastrointestinal: soft, non-tender, non-distended, normal bowel sounds Extremities: no cyanosis, no clubbing, no edema Skin: normal turgor, no lesions, no rashes Neurological: cranial nerve grossly intact, normal sensation to touch, no focal deficits, no new deficit Musculoskeletal: normal tone, normal strength, no muscle wasting Psychiatric: normal affect, normal behavior, A&O x 3 Hosp A/P (1) ICH (intracerebral hemorrhage) Code(s): I61.9 - NONTRAUMATIC INTRACEREBRAL HEMORRHAGE, UNSPECIFIED Status: Acute (2) Hypertension Code(s): I10 - ESSENTIAL (PRIMARY) HYPERTENSION Status: Acute (3) Diabetes mellitus type 2 in nonobese Code(s): E11.9 - TYPE 2 DIABETES MELLITUS WITHOUT COMPLICATIONS Status: Acute (4) Anemia Code(s): D64.9 - ANEMIA, UNSPECIFIED Status: Acute (5) Hypokalemia Code(s): E87.6 - HYPOKALEMIA Status: Acute (6) Leukocytosis Code(s): D72.829 - ELEVATED WHITE BLOOD CELL COUNT, UNSPECIFIED Status: Acute - Plan CT brain: size of intraparenchymal hemorrhage in left basal ganglia similar appearing Chest X ray 01/03: left lower lobe consolidation vs collapse Venogram : doppler showed no evidence of DVT Chest Xray 01/04: no change This is a 74 year old female who was found unresponsive, presented with intraventricular hemorrage IVH s/p intubation - repeat CT head stable on 01/01. EVD at 6. NEurosurgery following. Discussed with family that mental status poor due to hemorrhage - blood gas appears stable. Vent management per critical care #Hypernatremia #Malnutrition - sodium up to 149. Switch to D5W. Will repeat BMP in the afternoon Hypertension - controlled -continue losartan Type II DM - blood sugars controlled.Blood sugars q6 hours Hypokalemia -resolved Leukocytosis: Resolved. UA negative. Chest X ray shows possible LLL consolidation . Anemia - Hb stable at 10.1 Code status: full code
[2020-01-04 18:23] LABS: Anion Gap 12 mmol/L (10-20); BUN (Urea Nitrogen) 16 mg/dL (9.8-20.1); Calc. Creatinine Clearance 96 mL/min (70-130); Calcium 9.2 mg/dL (7.8-10.44); Carbon Dioxide 29 mmol/L (23-31); Chloride 109 mmol/L (98-107); Estimated GFR-MDRD Greater than 90; Glucose 135 mg/dL (83-110); Potassium 3.7 mmol/L (3.5-5.1); Sodium 146 mmol/L (136-145)
[2020-01-04] MEDS: hydrALAZINE 20 MG/ML VIAL SLOW IVP PRN (22:04)
[2020-01-05] MEDS: Dextrose 5% in Water 1,000 ML IV SCH ×2 (02:06→15:24)
[2020-01-05] MEDS: CEFAZOLIN 2 GM in Premix Bag 1 BAG IVPB SCH ×2 (02:06→08:47)
[2020-01-05 04:27] LABS: Hemoglobin 10.6 g/dL (12.0-16.0); Mean Corpuscular HGB CONC 34.2 g/dL (32.0-36.0); Mean Corpuscular Hemoglobin 29.8 pg (27.0-31.0); Mean Corpuscular Volume 87.2 fL (78.0-98.0); Platelet Count 213 thou/uL (130-400); RBC Distribution Width 13.5 % (11.5-14.5); Red Blood Cell (RBC) Count 3.54 mill/uL (4.20-5.40); White Blood Cell (WBC) Count 7.4 thou/uL (4.8-10.8)
[2020-01-05 04:46] LABS: Anion Gap 13 mmol/L (10-20); BUN (Urea Nitrogen) 17 mg/dL (9.8-20.1); Calc. Creatinine Clearance 96 mL/min (70-130); Calcium 9.3 mg/dL (7.8-10.44); Carbon Dioxide 32 mmol/L (23-31); Chloride 106 mmol/L (98-107); Estimated GFR-MDRD Greater than 90; Glucose 125 mg/dL (83-110); Potassium 3.9 mmol/L (3.5-5.1); Sodium 147 mmol/L (136-145)
[2020-01-05 07:34] LABS: Actual Bicarbonate (HCO3a) 29.1 mEq/L (22-28); Base Excess (BEa) 4.9 mEq/L (-2.0 to +3.0); CO2 Tension 41.5 mmHg (35.0-45.0); Carboxyhemoglobin (COHb) 0.7 gm% (0.0-3.0); Hemoglobin (Hb) 11.1 g/dL (12.0-16.0); O2 Tension (PaO2) 116.1 mmHg (> 70.0); Potassium - ABG Lab 3.73 mmol/L (3.70-5.30); Puncture Site LRA; pH, Arterial 7.46 (7.35-7.45)
[2020-01-05 07:35] LABS: ALV-art Gradient 45.925 (0-20)
--- NOTE | 2020-01-05 08:02 | PRG ---
DATE OF SERVICE: 01/05/2020 I saw Kathe Tyson in the ICU this morning. She remains on the ventilator and her ventriculostomy has been open in the last 24 hours. No events have been reported. Among the electronically recorded vital signs, she had a T-max of 100.5 degrees Fahrenheit. She remains on Ancef. Other vital signs have been stable with blood pressures in the 120s to 130s. The CSF output has been between 5 and 17 mL an hour. The total is about 264 in the last 24 hours. on neurological exam, I can have Ms. Kathe Tyson wiggle her toes to command and Cral Spears found that she moved her fingers to command. She clearly localizes both upper extremities. She opens her eyes. A CT examination of brain was done yesterday. There is decompression of the ventricular system with a ventriculostomy working. There is still blood in the ventricles. It looks as though her hemorrhage was centered at the head of the caudate on the left side and extended into the ventricular system. The blood is still dense. Dx: Intraventricular hemorrhage from extension of the intracerebral hemorrhage. Our plan today is to start the slow process of weaning the ventriculostomy and touch base with the family regarding tracheostomy and gastrostomy later this week. We will continue to monitor the temperature and use Ancef as prophylactic coverage for the EVD. Job ID: [id number] MTDD
[2020-01-05] MEDS: Losartan 25 MG TAB PO SCH (08:48)
[2020-01-05] MEDS: Pantoprazole 40 MG VIAL IVP SCH ×2 (08:48→21:08)
[2020-01-05] MEDS: Piperacillin/Tazobactam 3.375 GM in Sodium Chloride 0.9% 100 ML IVPB SCH ×3 (10:30→21:08)
--- NOTE | 2020-01-05 10:34 | RAD ---
PORTABLE CHEST: Date: 01/05/2020 HISTORY: Ventilation and CCU follow-up. COMPARISON: 01/04/2020. FINDINGS/IMPRESSION: Cardiomegaly again noted. Mild vascular engorgement. No focal infiltrate or significant effusion. Vas cular congestion appears improved when compared to yesterday. No acute interval change. POS: [facility]
--- NOTE | 2020-01-05 12:24 | PRG ---
DATE OF SERVICE: 01/05/2020 SUBJECTIVE: Kathe Tyson this morning remains intubated in the vent. No sedation. OBJECTIVE: VITAL SIGNS: Maximum temperature is 100.4, pulse 90, blood pressure 130/69, sats 100%, respirations 20. I's and Os are even. CHEST: Decreased breath sounds. No wheezing. CARDIAC: Normal S1, S2. No gallops. ABDOMEN: Soft. LABORATORY DATA: White count 10,000. H and H is stable. Platelet count is normal. PO2 116, pCO2 41, pH 7.46, rate of 8 , 450 tidal volume. Lytes are normal. Sodium is 147. IMPRESSION: 1. Intraventricular thalamic bleed. 2. Respiratory failure. 3. Hypertension. PLAN: 1. Vent is being adjusted. 2. Continue nutrition, PT. Once again, still not weanable until she is more awake. 3. X-ray showing questionable infiltrate in the left base. Continue antibiotics. Adjust depending upon ongoing fever, etc. One-half hour of critical time. Job ID: [id number]
--- NOTE | 2020-01-05 14:48 | PDOC.EVN ---
Event Note - Event Note Event Note: Plan Tracheostomy and PEG on . Full dictation to follow
[2020-01-05] MEDS: Acetaminophen 325 MG TAB PO PRN (15:14)
--- NOTE | 2020-01-05 15:54 | PDOC.HOSPP ---
- Subjective Encounter Date: 01/05/20 Encounter Time: 13:00 non-verbal Subjective: Patient is intubated, not on sedation. Today seems worst, not responsive to noxious stimuli or when opening eyes, but previously she was She is getting trach and PEG on . No BM today - Objective Vital Signs & Weight: Vital Signs (12 hours) Temp Pulse Pulse Pulse Resp BP BP 01/05/20 15:00 102.0 F H 01/05/20 14:57 93 119/70 01/05/20 14:00 14 01/05/20 12:00 100.9 F H 12 01/05/20 11:03 93 95 130/75 01/05/20 11:02 98 139/74 01/05/20 10:00 15 01/05/20 08:00 99.8 F H 16 01/05/20 06:36 92 140/75 01/05/20 06:00 15 01/05/20 04:00 100.4 F H 16 BP Pulse Ox Pulse Ox 01/05/20 15:00 01/05/20 14:57 01/05/20 14:00 01/05/20 12:00 01/05/20 11:03 139/74 99 01/05/20 11:02 01/05/20 10:00 01/05/20 08:00 99 01/05/20 06:36 01/05/20 06:00 01/05/20 04:00 Weight Admit Weight 193 lb 5.526 oz Weight 182 lb 1.629 oz Most Recent Monitor Data Heart Rate from ECG 91 NIBP 132/76 NIBP BP-Mean 94 Respiration from ECG 14 SpO2 99 I&O: 01/04/20 01/05/20 01/06/20 06:59 06:59 06:59 Intake Total 1794 2551 100 Output Total 3953 3015 1041 [facility] -[phone] -[phone] Result Diagrams: 01/05/20 04:10 01/05/20 04:10 Additional Labs: Accuchecks 01/05/20 01/05/20 01/05/20 15:24 09:29 04:19 POC Glucose 117 H 104 134 H 01/04/20 01/04/20 21:41 16:55 POC Glucose 114 H 118 H Hospitalist ROS - Review of Systems ROS unobtainable: due to endotracheal tube - Medication Medications: Active Medications Generic Name Dose Route Start Last Admin Trade Name Freq PRN Reason Stop Dose Admin Acetaminophen 650 mg 12/31/19 14:48 01/05/20 15:14 Tylenol PO 650 mg Q4H PRN Administration Headache/Fever Or Mild Pain Docusate Sodium 100 mg 12/31/19 14:48 01/04/20 16:22 Colace PO 100 mg BIDPRN PRN Administration Constipation Hydralazine HCl 5 mg 12/31/19 14:48 01/04/20 22:04 Apresoline SLOW IVP 5 mg Q15MIN PRN Administration SBP > 160 mmHg Potassium Chloride 40 meq/ 100 mls @ 50 mls/hr 01/01/20 07:41 01/02/20 04:34 Device IVPB 100 mls ASDIR PRN Administration FOR SERUM K+ 2.5 - 3.5 Dextrose/Water 1,000 mls @ 75 mls/hr 01/04/20 10:00 01/05/20 15:24 D5w IV 1,000 mls .[id number] LALITA Administration Piperacillin Sod/Tazobactam 100 mls @ 200 mls/hr 01/05/20 10:00 01/05/20 15: 21 Sod 3.375 gm/ Sodium Chloride IVPB 100 mls 0400,1000,1600,2200 LALITA Administration Losartan Potassium 25 mg 01/02/20 09:00 01/05/20 08:48 Cozaar PO 25 mg DAILY LALITA Administration Morphine Sulfate 2 mg 12/31/19 14:48 01/04/20 16:21 Morphine SLOW IVP 2 mg Q1H PRN Administration Moderate Breakthrough Pain Pantoprazole Sodium 40 mg 12/31/19 21:00 01/05/20 08:48 Protonix IVP 40 mg Q12HR LALITA Administration Potassium Chloride 40 meq 01/01/20 07:41 01/01/20 10:26 Klor-Con PER TUBE 40 meq ASDIR PRN Administration FOR SERUM K+ 2.5-3.5 - Exam General - other findings: intubated, does not withdraw to painful stimuli Eye: PERRL Heart - other findings: systolic murmur right second intercostals pace Respiratory: CTAB, no wheezes, no rales Gastrointestinal: soft, non-tender, non-distended, no palpable masses Extremities: no cyanosis, no clubbing, no edema Hosp A/P (1) ICH (intracerebral hemorrhage) Code(s): I61.9 - NONTRAUMATIC INTRACEREBRAL HEMORRHAGE, UNSPECIFIED Status: Acute (2) Hypertension Code(s): I10 - ESSENTIAL (PRIMARY) HYPERTENSION Status: Acute (3) Diabetes mellitus type 2 in nonobese Code(s): E11.9 - TYPE 2 DIABETES MELLITUS WITHOUT COMPLICATIONS Status: Acute (4) Anemia Code(s): D64.9 - ANEMIA, UNSPECIFIED Status: Acute (5) Hypokalemia Code(s): E87.6 - HYPOKALEMIA Status: Acute (6) Leukocytosis Code(s): D72.829 - ELEVATED WHITE BLOOD CELL COUNT, UNSPECIFIED Status: Acute - Plan CT brain: size of intraparenchymal hemorrhage in left basal ganglia similar appearing Chest X ray 01/03: left lower lobe consolidation vs collapse Venogram : doppler showed no evidence of DVT Chest Xray 01/04: no change This is a 74 year old female who was found unresponsive, presented with intraventricular hemorrage IVH s/p intubation - repeat CT head stable on 01/01. EVD at 6. NEurosurgery following. Discussed with family that mental status poor due to hemorrhage - blood gas appears stable. Vent management per critical care #Hypernatremia #Malnutrition - sodium down to 147, continue D5W Hypertension - controlled -continue losartan Type II DM - blood sugars controlled.Blood sugars q6 hours Hypokalemia -resolved Leukocytosis: Resolved. UA negative. Chest X ray shows possible LLL consolidation . Anemia - Hb stable at 10.1 Code status: full code
[2020-01-05] MEDS ORDERED: Polyethylene Glycol 3350 17 GM Packet PER TUBE SCH (16:00)
[2020-01-05 17:10] LABS: Bacteria/HPF None Seen HPF (None Seen); Bilirubin Negative (Negative); Blood, Urine Trace (Negative); Clarity Clear (Clear); Glucose, Urine (Dipstick) Normal (Negative); Leukocyte Negative Leu/uL (Negative); Nitrite Negative (Negative); Protein, Urine (Dipstick) Negative (Neg-Trace); RBC/HPF 0-3 HPF (0-3); Squamous Epithelial 0-3 HPF (0-3); Urobilinogen Normal mg/dL (Less than 2); WBC/HPF 0-3 HPF (0-3)
--- NOTE | 2020-01-05 18:15 | CT ---
CT OF BRAIN PERFORMED WITHOUT CONTRAST ENHANCEMENT: 01/05/20 HISTORY: Reevaluation of hemorrhage. Not responsive to painful stimuli. COMPARISON: Exam done yesterday. The left basal ganglia bleed is similar in size to the previous examination. Shift of midline structu res to the right and interventricular blood are also essentially stable. Ventricles are not significa ntly dilated. A ventricular shunt tube remains in place. IMPRESSION: Essentially stable exam. POS: [facility]
[2020-01-06] MEDS: Piperacillin/Tazobactam 3.375 GM in Sodium Chloride 0.9% 100 ML IVPB SCH ×4 (04:07→21:21)
--- NOTE | 2020-01-06 06:23 | PRG ---
I saw Ms. Tyson in our ICU room this morning. Evidently, the medical team ordered a CT scan for yesterday, which I reviewed and shows no change. When I examined Ms. Tyson this morning, she has just been suctioned, so she is a little bit more alert than she has been. She starts to open her eyes before I even examine her. With some stimulus, I get her to follow commands with the right lower extremity by wiggling the toes; the arms, for me, not following commands but clearly localizing and purposeful. The drain is working well. Her total fluid out is about the same the prior day, so raising the drain did not change the volume of CSF coming out yet. I see a maximum temperature of 102 degrees Fahrenheit and cultures have been ordered. My plan for Ms. Tyson is to have a trach and PEG consideration this week. I already spoke with Dr. Berry and the patient's sister. Once they make a decision to proceed or not to proceed, we can make arrangements for those procedures to be done. We will wait on the results of the cultures. We will continue Ancef to cover the drain and there has been no change in the neurological examination nor in the CT scan. I will order another CT for tomorrow because we were raising the drain to 15 and sometime this week, we may try to clamp it. Job ID: [id number] MTDD
[2020-01-06 07:54] LABS: Actual Bicarbonate (HCO3a) 29.9 mEq/L (22-28); Base Excess (BEa) 5.9 mEq/L (-2.0 to +3.0); CO2 Tension 41.2 mmHg (35.0-45.0); Calcium, Ionized 1.18 mmol/L (1.12-1.30); Carboxyhemoglobin (COHb) 0.4 gm% (0.0-3.0); Hemoglobin (Hb) 11.1 g/dL (12.0-16.0); O2 Tension (PaO2) 119.2 mmHg (> 70.0); Potassium - ABG Lab 3.86 mmol/L (3.70-5.30); pH, Arterial 7.48 (7.35-7.45)
[2020-01-06 08:05] LABS: Puncture Site LRA
--- NOTE | 2020-01-06 08:14 | PRG ---
DATE OF SERVICE: 01/06/2020 SUBJECTIVE: Kathe Tyson is status post intraventricular thalamic hemorrhage. She is still pretty much encephalopathic, unresponsive. OBJECTIVE: VITAL SIGNS: Pulse 89, blood pressure 127/73, maximum temperature was 98, and saturations are 100%. I's and O's; 2551 in, 3015 five. GENERAL: Responsive barely to painful stimuli. HEENT: Pupils are equal. CHEST: Decreased breath sounds. Bilateral rhonchi. CARDIAC: Normal S1 and S2. No gallops. ABDOMEN: Soft. DIAGNOSTIC DATA: X-ray shows a questionable retrocardiac infiltrate. IMPRESSION: 1. Hypertension. 2. Thalamic bleed. PLAN: She could have a trach and PEG tomorrow. The day after, she took slightly more broad-spectrum antibiotic. Otherwise, continue supportive care. One-half hour of critical care time. Job ID: [id number]
[2020-01-06] MEDS: Dextrose 5% in Water 1,000 ML IV SCH ×2 (08:20→16:57)
--- NOTE | 2020-01-06 08:34 | RAD ---
CHEST 1 VIEW PORTABLE: HISTORY: Respiratory insufficiency. COMPARISON: 01/05/2020. FINDINGS: Stable life support tubes. Minimal rotation to the left. Patchy parenchymal changes in the left inf rahilar region but stable. IMPRESSION: No significant new process. Continue short-term followup. POS: [facility]
[2020-01-06] MEDS: Pantoprazole 40 MG VIAL IVP SCH ×2 (09:41→21:21)
[2020-01-06] MEDS: Losartan 25 MG TAB PO SCH (09:41)
[2020-01-06] MEDS: Polyethylene Glycol 3350 17 GM Packet PER TUBE SCH (09:42)
[2020-01-06] MEDS: Acetaminophen 325 MG TAB PO PRN (16:58)
--- NOTE | 2020-01-06 19:16 | PDOC.HOSPP ---
- Subjective Encounter Date: 01/06/20 Encounter Time: 14:00 Subjective: The patient is intubated. She responds to some noxious stimuli. Plan for PEG and trach tomorrow. Had fever yesterday, switched to zosyn. Fever slightly better today EVD still draining significant amount - Objective Vital Signs & Weight: Vital Signs (12 hours) Temp Pulse Pulse Pulse Resp BP BP 01/06/20 18:00 18 01/06/20 16:00 100.4 F H 21 H 01/06/20 15:00 100.1 F H 01/06/20 14:10 94 138/83 01/06/20 14:00 20 01/06/20 12:00 100.9 F H 18 01/06/20 11:33 88 98 126/89 01/06/20 11:25 95 123/85 01/06/20 10:00 17 01/06/20 08:00 100.2 F H 17 01/06/20 07:33 89 127/73 BP Pulse Ox 01/06/20 18:00 01/06/20 16:00 01/06/20 15:00 01/06/20 14:10 01/06/20 14:00 01/06/20 12:00 01/06/20 11:33 133/81 01/06/20 11:25 01/06/20 10:00 01/06/20 08:00 95 01/06/20 07:33 Weight Admit Weight 193 lb 5.526 oz Weight 180 lb 4.8 oz Most Recent Monitor Data Heart Rate from ECG 90 NIBP 92/51 NIBP BP-Mean 64 Respiration from ECG 22 SpO2 98 I&O: 01/05/20 01/06/20 01/07/20 06:59 06:59 06:59 Intake Total 2551 3387 1521 Output Total 3011 2901 1578 Balance -464 486 -57 Result Diagrams: 01/05/20 04:10 01/05/20 04:10 Additional Labs: Accuchecks 01/06/20 01/06/20 01/06/20 16:27 10:15 04:26 POC Glucose 118 H 131 H 139 H 01/05/20 22:20 POC Glucose 126 H Hospitalist ROS - Review of Systems Constitutional: denies: fever, chills - Medication Medications: Active Medications Generic Name Dose Route Start Last Admin Trade Name Freq PRN Reason Stop Dose Admin Acetaminophen 650 mg 12/31/19 14:48 01/06/20 16:58 Tylenol PO 650 mg Q4H PRN Administration Headache/Fever Or Mild Pain Docusate Sodium 100 mg 12/31/19 14:48 01/04/20 16:22 Colace PO 100 mg BIDPRN PRN Administration Constipation Hydralazine HCl 5 mg 12/31/19 14:48 01/04/20 22:04 Apresoline SLOW IVP 5 mg Q15MIN PRN Administration SBP > 160 mmHg Potassium Chloride 40 meq/ 100 mls @ 50 mls/hr 01/01/20 07:41 01/02/20 04:34 Device IVPB 100 mls ASDIR PRN Administration FOR SERUM K+ 2.5 - 3.5 Dextrose/Water 1,000 mls @ 75 mls/hr 01/04/20 10:00 01/06/20 16:57 D5w IV Not Given .[id number] LALITA Piperacillin Sod/Tazobactam 100 mls @ 200 mls/hr 01/05/20 10:00 01/06/20 16: 56 Sod 3.375 gm/ Sodium Chloride IVPB 100 mls 0400,1000,1600,2200 LALITA Administration Losartan Potassium 25 mg 01/02/20 09:00 01/06/20 09:41 Cozaar PO 25 mg DAILY LALITA Administration Morphine Sulfate 2 mg 12/31/19 14:48 01/04/20 16:21 Morphine SLOW IVP 2 mg Q1H PRN Administration Moderate Breakthrough Pain Pantoprazole Sodium 40 mg 12/31/19 21:00 01/06/20 09:41 Protonix IVP 40 mg Q12HR LALITA Administration Polyethylene Glycol 17 gm 01/06/20 09:00 01/06/20 09:42 Miralax PER TUBE 17 gm DAILY LALITA Administration Potassium Chloride 40 meq 01/01/20 07:41 01/01/20 10:26 Klor-Con PER TUBE 40 meq ASDIR PRN Administration FOR SERUM K+ 2.5-3.5 Sodium Chloride 10 ml 12/31/19 14:48 01/06/20 09:43 Flush - Normal Saline IVF 10 ml PRN PRN Administration Saline Flush - Exam General Appearance: NAD General - other findings: responds to painful stimulus when lifting the legs. Intubated Eye: PERRL, anicteric sclera ENT: normocephalic atraumatic, no oropharyngeal lesions Neck: supple, symmetric, no JVD, no thyromegaly Heart: RRR, no murmur, no gallops, no rubs Respiratory: CTAB, no wheezes, no rales, no ronchi Gastrointestinal: soft, non-tender, non-distended Extremities: no cyanosis, no clubbing Hosp A/P (1) ICH (intracerebral hemorrhage) Code(s): I61.9 - NONTRAUMATIC INTRACEREBRAL HEMORRHAGE, UNSPECIFIED Status: Acute (2) Hypertension Code(s): I10 - ESSENTIAL (PRIMARY) HYPERTENSION Status: Acute (3) Diabetes mellitus type 2 in nonobese Code(s): E11.9 - TYPE 2 DIABETES MELLITUS WITHOUT COMPLICATIONS Status: Acute (4) Anemia Code(s): D64.9 - ANEMIA, UNSPECIFIED Status: Acute (5) Hypokalemia Code(s): E87.6 - HYPOKALEMIA Status: Acute (6) Leukocytosis Code(s): D72.829 - ELEVATED WHITE BLOOD CELL COUNT, UNSPECIFIED Status: Acute - Plan CT brain: size of intraparenchymal hemorrhage in left basal ganglia similar appearing Chest X ray 01/03: left lower lobe consolidation vs collapse Venogram : doppler showed no evidence of DVT Chest Xray 01/04: no change This is a 74 year old female who was found unresponsive, presented with intraventricular hemorrage Intraventricular hemorrhage s/p intubation - repeat CT head stable on 01/01. EVD still draining - still not able to respond, but responds to noxious stimuli - plan for PEG and trach on 01/05 Sepsis possibly from pneumonia - had fever 01/05, blood cultures negative, UA negative - switched cefazolin to IV zosyn - continue to monitor - unclear if there is also central fever #Hypernatremia #Malnutrition - sodium down to 147, continue D5W. Repeat BMP Hypertension - controlled -continue losartan Type II DM - blood sugars controlled. Blood sugars q6 hours Hypokalemia -resolved Leukocytosis: Resolved. UA negative. Chest X ray shows possible LLL consolidation . Anemia - Hb stable at 10.1 Code status: full code
[2020-01-06 21:53] LABS: Anion Gap 12 mmol/L (10-20); BUN (Urea Nitrogen) 20 mg/dL (9.8-20.1); Calc. Creatinine Clearance 86 mL/min (70-130); Calcium 9.1 mg/dL (7.8-10.44); Carbon Dioxide 30 mmol/L (23-31); Chloride 101 mmol/L (98-107); Estimated GFR-MDRD Greater than 90; Glucose 142 mg/dL (83-110); Potassium 3.9 mmol/L (3.5-5.1); Sodium 139 mmol/L (136-145)
[2020-01-07] MEDS: Sodium Chloride 0.9% 1,000 ML IV SCH ×2 (00:35→14:38)
[2020-01-07] MEDS: Piperacillin/Tazobactam 3.375 GM in Sodium Chloride 0.9% 100 ML IVPB SCH ×4 (03:24→21:07)
[2020-01-07 04:08] LABS: Anion Gap 16 mmol/L (10-20); BUN (Urea Nitrogen) 18 mg/dL (9.8-20.1); Calc. Creatinine Clearance 89 mL/min (70-130); Calcium 9.4 mg/dL (7.8-10.44); Carbon Dioxide 23 mmol/L (23-31); Chloride 104 mmol/L (98-107); Estimated GFR-MDRD Greater than 90; Glucose 100 mg/dL (83-110); Potassium 4.2 mmol/L (3.5-5.1); Sodium 139 mmol/L (136-145)
[2020-01-07 04:46] LABS: Band 4 % (5-11); Eosinophils 2 % (0-10); Hemoglobin 11.9 g/dL (12.0-16.0); Lymphocytes 21 % (21-51); MDiff Complete? YES; Mean Corpuscular Volume 88.1 fL (78.0-98.0); Mean Platelet Volume 8.6 fL (7.4-10.4); Monocytes 11 % (0-10); Neutrophil 59 % (42-75); Platelet Count 232 thou/uL (130-400); RBC Distribution Width 13.5 % (11.5-14.5); Red Blood Cell (RBC) Count 4.08 mill/uL (4.20-5.40); White Blood Cell (WBC) Count 11.3 thou/uL (4.8-10.8)
--- NOTE | 2020-01-07 06:58 | PRG ---
DATE OF SERVICE: 01/07/2020 I saw Ms. Tyson on rounds this morning. I have just left her room. Nursing does not report any events overnight, but does report that she found D5W hanging as IV fluid yesterday. This order was evidently made by the Medical team caring for Ms. Tyson. Among the electronically charted vital signs, I see a T-max of 100.9 degrees Fahrenheit. The remainder of the vital signs look stable to me. When examining Ms. Tyson I can stimulate her enough to open her eyes. She localizes with both upper extremities. The left moves more quickly than the right. With enough stimulation, I can get Ms. Tyson to follow commands with her feet. She wiggles the right toes more faster than the left, but the toes definitely wiggle to command. I cannot get her to lift her thumb or show me two fingers. The EVD output has tapered off now that is 15 cm above the ear. Sodium levels that were in the mid-to-high 140s are not down to 139. The white count is 11.3. This morning's CT scan does not show hydrocephalus. The intraventricular blood is slowly going away, and in spite of raising the height of the drain, the ventricles have not expanded. the Plan for today is to reinforce to nursing that no hypotonic IV fluids shall be administered on this patient during the time when brain swelling could be an issue. An attempt to give hypotonic fluid should be refused and Neurosurgery should be called. We will clamp the EVD and then measure pressure. The pressure goes above 20 mmHg for 20 minutes. We may consider opening the drain to drain 10 mL and reclamping it. If the drain does not need any opening by tomorrow, we will consider removing it, and we will need the supplies to do so. I will order a CT scan in the morning. Dr. Berry is aware of Ms. Tyson and is making plans to discuss tracheostomy and gastrostomy with the family. The last I spoke with them, they were equivocal as to their enthusiasm for it. Job ID: [id number] MTDD
[2020-01-07 07:35] LABS: Actual Bicarbonate (HCO3a) 26.5 mEq/L (22-28); Base Excess (BEa) 3.1 mEq/L (-2.0 to +3.0); CO2 Tension 35.8 mmHg (35.0-45.0); Calcium, Ionized 1.16 mmol/L (1.12-1.30); Carboxyhemoglobin (COHb) 1.1 gm% (0.0-3.0); Hemoglobin (Hb) 9.5 g/dL (12.0-16.0); O2 Tension (PaO2) 86.3 mmHg (> 70.0); Potassium - ABG Lab 3.85 mmol/L (3.70-5.30); Puncture Site LRA; pH, Arterial 7.49 (7.35-7.45)
--- NOTE | 2020-01-07 07:40 | CON ---
DATE OF CONSULTATION: 01/06/2020 CHIEF COMPLAINT: Respiratory failure. HISTORY OF PRESENT ILLNESS: This is a 74-year-old female, who sustained intracerebral hemorrhage associated. She was found down. She has since been on the ventilator. Dr. Marcano has been managing that from a neurosurgical standpoint. I have been consulted for her respiratory failure and need for tracheostomy and percutaneous endoscopic gastrostomy tube for ongoing placement. PAST MEDICAL HISTORY: Includes hypertension, hyperlipidemia, diabetes. PAST SURGICAL HISTORY: Hysterectomy. MEDICATIONS: See list. ALLERGIES: NO KNOWN DRUG ALLERGIES. SOCIAL HISTORY: Not able to obtain. REVIEW OF SYSTEMS: Unable to obtain. PHYSICAL EXAMINATION: VITAL SIGNS: Blood pressure 110/67, pulse 91, respirations 22, on vent. HEENT: Sclerae are anicteric. Oropharynx clear. NECK: No lymphadenopathy. CHEST: Clear. HEART: Regular rate. ABDOMEN: Soft, nontender. No obvious upper abdominal incisions or hernias. ASSESSMENT: 1. An intraparenchymal hemorrhage. 2. Respiratory failure. 3. Potential for chronic protein malnutrition. Needs PEG tube. PLAN: Tracheostomy feeding tube tomorrow. Discussed risks, benefits, and alternatives with family. She gives consent. We will do this on 12/07/2019. Job ID: [id number]
--- NOTE | 2020-01-07 08:00 | RAD ---
Portable frontal chest radiograph: 01/07/2020 COMPARISON: 01/06/2020 HISTORY: Ventilated patient Findings: Stable endotracheal tube, nasogastric, and left-sided vascular catheter. Atherosclerotic ca lcification of the aortic arch. Heart and mediastinal contours are stable. No focal consolidation or alveolar edema. IMPRESSION: Stable portable chest radiograph
--- NOTE | 2020-01-07 08:39 | PRG ---
DATE OF SERVICE: 01/07/2020 SUBJECTIVE: This morning, remains intubated in the vent. She uses no sedation, still remains unresponsive, encephalopathic. OBJECTIVE: VITAL SIGNS: Pulse 90, blood pressure 130/80, saturations 100%, respirations 14. CHEST: No wheezing or crackles. CARDIAC: Normal S1 and S2. No gallops. ABDOMEN: No masses. LABORATORY DATA: Shows white count 11,000, H and H are unremarkable. Lytes are normal. ASSESSMENT: Intracerebral hemorrhage, subarachnoid hemorrhage, thalamic hemorrhage, respiratory failure, hypertension. PLAN: She is going for trach and PEG. Hopefully, wean at this time. I am going to discontinue the blood gases. Continue empiric antibiotics. One-half hour of critical time. Job ID: [id number]
--- NOTE | 2020-01-07 09:18 | CT ---
PRELIMINARY REPORT/[facility]/EMERGENCY AFTER HOURS PROCEDURE: CT BRAIN WO CON History: F74, hydrocephalus, IVH. Comparison: CT\SR - CT BRAIN WO CON - 01/05/2020 05:[address] - CT BRAIN WO CON - 01/01/2020 01:59 AM [facility] Technique: Multiple axial sections were obtained from the brain without administration of intravenous contrast. Findings: Stable left basal ganglial hemorrhage. Slight interval improvement in ventricular size. A gain there is intraventricular blood. Unchanged 3 mm midline shift to the right. Stable appearance of ventricular shunt. Visualized orbits are normal. Mild paranasal sinus mucosal disease. Visualiz ed mastoid air cells are clear. No fractures. Impression: Stable left basal ganglial hemorrhage. Stable slight midline shift to the right. Slight interval improvement in ventricular size. ELECTRONICALLY SIGNED BY: Susana Alamo MD Jan 07, 2020 3:36:34 AM [facility] This report is intended for review by the ordering physician only, in accordance of law. If you recei ve this report in error, please call [facility] at [phone]. FINAL REPORT EMERGENCY AFTER HOURS BRAIN CT WITHOUT IV CONTRAST: Date: 01/07/2020 Time: 0226 hours COMPARISON: 01/05/2020. FINDINGS/IMPRESSION: Stable appearing intraparenchymal and intraventricular hemorrhage with left frontal encephalomalacia and ventriculostomy tube in place. Minimal stable midline shift. No new hemorrhage. No new mass. This report is in agreement with preliminary report by [facility]. POS: [facility]
[2020-01-07] MEDS: Pantoprazole 40 MG VIAL IVP SCH ×2 (10:25→21:07)
[2020-01-07] MEDS ORDERED: PROPOFOL 200 MG/20 ML VIAL ONE (10:50)
[2020-01-07] MEDS ORDERED: Rocuronium Bromide 10 MG/ML (10ML VIAL) ONE (10:50)
[2020-01-07] MEDS ORDERED: PHENYLEPHRINE-NS 100 MCG/ML 10 ML SYRINGE ONE (10:50)
[2020-01-07] MEDS ORDERED: EPINEPHrine 1 MG/ML AMP ONE (12:27)
[2020-01-07] MEDS ORDERED: Bupivacaine 0.25% HCL 30 ML VIAL ONE (12:27)
[2020-01-07] MEDS: Losartan 25 MG TAB PO SCH ×2 (14:33→16:24)
[2020-01-07] MEDS: Polyethylene Glycol 3350 17 GM Packet PER TUBE SCH (14:34)
--- NOTE | 2020-01-07 15:07 | RAD ---
EXAM: CHEST ONE VIEW HISTORY: Postoperative tracheostomy. COMPARISON: 01/07/2020 at 0204 hours FINDINGS: Tracheostomy device is now noted in place overlying the trachea. Left subclavian central venous ryan ter remains in place. Nasogastric tube has been removed. Cardiac silhouette is magnified by patient rotation and portable technique. Pulmonary vasculature is within normal limits. No consolidation, ple ural effusion, or pneumothorax is visualized. Degenerative changes are again seen in the spine. No other interval change. IMPRESSION: 1. Interval placement of tracheostomy device with removal of the endotracheal tube and nasogastric tu bes. 2. Left subclavian central venous catheter remains in place. 3. Lungs are clear.
--- NOTE | 2020-01-07 15:36 | PQF ---
CLINICAL DOCUMENTATION IMPROVEMENT CLARIFICATION FORM: ICD-10 Updated PLEASE DO AN ADDENDUM TO THE PROGRESS NOTE WITH ANY DOCUMENTATION UPDATES OR ADDITIONS AND CARRY THROUGH TO DC SUMMARY. THANK YOU. Date: 01/07/20 ATTN: DR. BONDS Please exercise your independent, professional judgment in responding to the clarification form. Clinical indicators are provided on the bottom of this form for your review Please check appropriate box(s): [ ] Protein Calorie Malnutrition: [ ] Mild [ ] Moderate [x ] Severe [ ] Other diagnosis [ ] Unable to determine In addition, please specify: Present on Admission (POA): [x ] Yes [ ] No [ ] Unable to determine CLINICAL INDICATORS - SIGNS / SYMPTOMS / LABS / RESULTS AND LOCATION IN MR PROGRESS NOTE 01/05: "MALNUTRITION" CONSULTATION REPORT 01/06: "POTENTIAL FOR CHRONIC PROTEIN CALORIE MALNUTRITION" BMI 31 RISKS: INTRAPARENCHYMAL HEMORRHAGE ( CONSULTATION NOTE 01/06) RESPIRATORY FAILURE (CONSULTATION NOTE 01/06) TREATMENT: DIETARY CONSULT 01/01 TUBE FEEDS PROSTAT PER DIETARY RECOMMENDATION 01/01 PEG PLACED 01/07 Moderate Malnutrition (in acute illness) Energy Intake: <75% of estimated energy requirement for > 7 days Weight Loss: 1-2%/1 week; 5%/ 1 month; 7.5%/3 months Other: mild body fat loss; mild muscle mass loss; mild fluid accumulation; Severe Malnutrition (in acute illness) [employer]er[employer] Intake: < 50% of estimated energy requirement for > 5 days Weight Loss: >1-2%/1 week; >5%/1 month; >7.5%/3 months Other: moderate body fat loss; moderate muscle mass loss; moderate- severe fluid accumulation; measurably reduced web design specialist strength Moderate Malnutrition (in chronic illness) Energy Intake: <75% of estimated energy requirement for >1 month Weight Loss: 5%/1 month; 7.5%/3 months; 10%/6 months; 20%/1 year Other: mild body fat loss; mild muscle mass loss; mild fluid accumulation Severe Malnutrition (in chronic illness) Energy Intake: <75% of estimated energy requirement for >1 month Weight Loss: >5%/1 month; >7.5%/3 months; >10%/6 months; >20%/1 year Other: severe body fat loss; severe muscle mass loss; severe fluid accumulation ; measurably reduced web design specialist strength (This form is maintained as a part of the permanent medical record) 2014 [employer] All Rights Reserved SALOMON [email or web address] Office: [phone] [facility] [email or web address]
--- NOTE | 2020-01-07 17:15 | PDOC.HOSPP ---
- Subjective Encounter Date: 01/07/20 Encounter Time: 00:00 Subjective: THe patient is s/p PEG and trach today. She is not responsive to sternal rub still, responds some to noxious stimuli - Objective Vital Signs & Weight: Vital Signs (12 hours) Temp Pulse Resp BP 01/07/20 16:00 99.6 F 01/07/20 14:19 87 125/79 01/07/20 14:00 17 01/07/20 13:15 99.2 F 01/07/20 11:00 99.6 F 01/07/20 10:38 90 124/80 01/07/20 10:00 20 01/07/20 08:00 99.7 F H 13 01/07/20 07:00 84 111/69 01/07/20 06:00 18 Weight Admit Weight 193 lb 5.526 oz Weight 186 lb 15.232 oz Most Recent Monitor Data Heart Rate from ECG 86 NIBP 150/85 NIBP BP-Mean 106 Respiration from ECG 22 SpO2 100 I&O: 01/06/20 01/07/20 01/08/20 06:59 06:59 06:59 Intake Total 3387 2701 120 Output Total 2901 3076 1000 Balance 577 -116 -659 Result Diagrams: 01/07/20 03:12 01/07/20 03:12 Additional Labs: Accuchecks 01/07/20 01/07/20 01/06/20 16:27 10:36 21:30 POC Glucose 113 H 115 H 139 H 01/06/20 01/06/20 21:20 16:27 POC Glucose 227 H 118 H Hospitalist ROS - Review of Systems ROS unobtainable: due to mental status - Medication Medications: Active Medications Generic Name Dose Route Start Last Admin Trade Name Freq PRN Reason Stop Dose Admin Acetaminophen 650 mg 12/31/19 14:48 01/06/20 16:58 Tylenol PO 650 mg Q4H PRN Administration Headache/Fever Or Mild Pain Docusate Sodium 100 mg 12/31/19 14:48 01/04/20 16:22 Colace PO 100 mg BIDPRN PRN Administration Constipation Hydralazine HCl 5 mg 12/31/19 14:48 01/04/20 22:04 Apresoline SLOW IVP 5 mg Q15MIN PRN Administration SBP > 160 mmHg Potassium Chloride 40 meq/ 100 mls @ 50 mls/hr 01/01/20 07:41 01/02/20 04:34 Device IVPB 100 mls ASDIR PRN Administration FOR SERUM K+ 2.5 - 3.5 Piperacillin Sod/Tazobactam 100 mls @ 200 mls/hr 01/05/20 10:00 01/07/20 16: 23 Sod 3.375 gm/ Sodium Chloride IVPB 100 mls 0400,1000,1600,2200 LALITA Administration Sodium Chloride 1,000 mls @ 75 mls/hr 01/07/20 00:30 01/07/20 14:38 Normal Saline 0.9% IV 1,000 mls .[id number] LALITA Administration Losartan Potassium 25 mg 01/02/20 09:00 01/07/20 16:24 Cozaar PO 25 mg DAILY LALITA Administration Morphine Sulfate 2 mg 12/31/19 14:48 01/04/20 16:21 Morphine SLOW IVP 2 mg Q1H PRN Administration Moderate Breakthrough Pain Pantoprazole Sodium 40 mg 12/31/19 21:00 01/07/20 10:25 Protonix IVP 40 mg Q12HR LALITA Administration Polyethylene Glycol 17 gm 01/06/20 09:00 01/07/20 14:34 Miralax PER TUBE Not Given DAILY LALITA Potassium Chloride 40 meq 01/01/20 07:41 01/01/20 10:26 Klor-Con PER TUBE 40 meq ASDIR PRN Administration FOR SERUM K+ 2.5-3.5 Sodium Chloride 10 ml 12/31/19 14:48 01/06/20 09:43 Flush - Normal Saline IVF 10 ml PRN PRN Administration Saline Flush - Exam General Appearance: NAD, awake alert General - other findings: trach in place Eye: PERRL, anicteric sclera ENT: normocephalic atraumatic, no oropharyngeal lesions Neck: supple, no JVD Heart: RRR, no murmur, no gallops, no rubs Respiratory: CTAB, no wheezes, no rales, no ronchi Gastrointestinal: soft, non-tender, non-distended, normal bowel sounds, no hepatomegaly Gastrointestinal - other findings: PEG in place Extremities: no cyanosis, no clubbing, no edema Skin: normal turgor, no lesions, no rashes Neurological: cranial nerve grossly intact, normal sensation to touch, no focal deficits, no new deficit Musculoskeletal: normal tone, normal strength, no muscle wasting Hosp A/P (1) ICH (intracerebral hemorrhage) Code(s): I61.9 - NONTRAUMATIC INTRACEREBRAL HEMORRHAGE, UNSPECIFIED Status: Acute (2) Hypertension Code(s): I10 - ESSENTIAL (PRIMARY) HYPERTENSION Status: Acute (3) Diabetes mellitus type 2 in nonobese Code(s): E11.9 - TYPE 2 DIABETES MELLITUS WITHOUT COMPLICATIONS Status: Acute (4) Anemia Code(s): D64.9 - ANEMIA, UNSPECIFIED Status: Acute (5) Hypokalemia Code(s): E87.6 - HYPOKALEMIA Status: Acute (6) Leukocytosis Code(s): D72.829 - ELEVATED WHITE BLOOD CELL COUNT, UNSPECIFIED Status: Acute - Plan CT brain: size of intraparenchymal hemorrhage in left basal ganglia similar appearing Chest X ray 01/03: left lower lobe consolidation vs collapse Venogram : doppler showed no evidence of DVT Chest Xray 01/04: no change Chest Xray 01/07: lungs clear This is a 74 year old female who was found unresponsive, presented with intraventricular hemorrage Intraventricular hemorrhage s/p intubation - repeat CT head stable on 01/07. Neurosurgery monitoring the drain output - still not able to respond, but responds to noxious stimuli - plan for PEG and trach on 01/05 Sepsis possibly from pneumonia - had fever 01/05, blood cultures negative, UA negative - continue IV zosyn - fevers improved #Hypernatremia #Malnutrition -D5W discontinued Hypertension - controlled -continue losartan Type II DM - blood sugars controlled. Blood sugars q6 hours Hypokalemia -resolved Leukocytosis: Resolved. UA negative. Chest X ray shows possible LLL consolidation . Anemia - Hb stable at 10.1 Code status: full code
[2020-01-07] MEDS: Morphine 2 MG/ML SYRINGE SLOW IVP PRN (22:02)
[2020-01-08] MEDS: Morphine 2 MG/ML SYRINGE SLOW IVP PRN (03:53)
[2020-01-08] MEDS: Piperacillin/Tazobactam 3.375 GM in Sodium Chloride 0.9% 100 ML IVPB SCH (03:54)
[2020-01-08] MEDS: Sodium Chloride 0.9% 1,000 ML IV SCH ×2 (03:54→18:28)
[2020-01-08 03:57] LABS: #Basophils 0.1 thou/uL (0.0-0.2); #Eosinphils 0.3 thou/uL (0.0-0.7); #Lymphocytes 1.2 thou/uL (1.20-3.40); #Monocytes 1.2 thou/uL (0.11-0.59); #Neutrophils 6.6 thou/uL (1.40-6.50); %Basophils 0.9 % (0.0-1.0); %Eosinophils 3.1 % (0.0-10.0); %Lymphocytes 12.5 % (21.0-51.0); %Monocytes 12.9 % (0.0-10.0); %Neutrophils 70.7 % (42.0-75.0); Mean Corpuscular HGB CONC 34.1 g/dL (32.0-36.0); Mean Corpuscular Hemoglobin 29.4 pg (27.0-31.0); Mean Corpuscular Volume 86.1 fL (78.0-98.0); Mean Platelet Volume 8.8 fL (7.4-10.4); Platelet Count 251 thou/uL (130-400); RBC Distribution Width 13.5 % (11.5-14.5); Red Blood Cell (RBC) Count 3.41 mill/uL (4.20-5.40); White Blood Cell (WBC) Count 9.3 thou/uL (4.8-10.8)
[2020-01-08 04:19] LABS: Anion Gap 11 mmol/L (10-20); BUN (Urea Nitrogen) 21 mg/dL (9.8-20.1); Calc. Creatinine Clearance 89 mL/min (70-130); Calcium 9.1 mg/dL (7.8-10.44); Carbon Dioxide 26 mmol/L (23-31); Chloride 110 mmol/L (98-107); Estimated GFR-MDRD Greater than 90; Glucose 118 mg/dL (83-110); Potassium 3.8 mmol/L (3.5-5.1); Sodium 143 mmol/L (136-145)
[2020-01-08 06:43] LABS: Base Excess (BEa) 1.2 mEq/L (-2.0 to +3.0); CO2 Tension 36.7 mmHg (35.0-45.0); Calcium, Ionized 1.19 mmol/L (1.12-1.30); Carboxyhemoglobin (COHb) 1.1 gm% (0.0-3.0); Hemoglobin (Hb) 11.5 g/dL (12.0-16.0); O2 Tension (PaO2) 88.7 mmHg (> 70.0); pH, Arterial 7.45 (7.35-7.45)
[2020-01-08 07:04] LABS: ALV-art Gradient 15.155 (0-20); Puncture Site RRAD
--- NOTE | 2020-01-08 07:49 | PRG ---
DATE OF SERVICE: 01/08/2020 I saw Ms. Tyson in the ICU on rounds this morning. Overnight nurse report right-sided facial twitch that lasted a few minutes and went away. This happened on two occasions yesterday, but none overnight. No other events have been reported. The maximum temperature in the last 24 hours that I see recorded is 99.9 degrees Fahrenheit, which is just this morning. When I examined her, the skin feels warmer than this. The eyes are open to stimulation and she does make some effort to look [id number]. With midline stimulation, there is flexion of the arms towards the stimulus, but she does not bring her arms as far up as she has in the past. I cannot get her to wiggle the toes today. However, she looks agitated with my continued stimulus. She does withdraw the feet to stimulation. A CT scan done this morning does not show significant increase in size of the ventricular system in spite of the drain being clamped for 24 hours. The sodium is 143. The white blood cell count is 9.3. Our plan today is to remove the drain. Because of recent fevers, we will culture the CSF before we lose access to the ventricular system. After our surgery is done this morning, we will return to the bedside and remove CSF sterilely and sent it for culture. The drain will be removed. We will continue to follow along with Medical Service. The family has proceeded with the tracheostomy and gastrostomy yesterday and Ms. Tyson looks more comfortable with those measures complete. Job ID: [id number]
--- NOTE | 2020-01-08 08:03 | CT ---
PRELIMINARY REPORT/[facility]/EMERGENCY AFTER HOURS PROCEDURE PROCEDURE: CT Head without Contrast . HISTORY: Follow-up interventricular hemorrhage and hydrocephalus. TECHNIQUE: Axial images were performed without the administration of IV contrast with or without mult iplanar reformations . COMPARISON: 01/07/2020. FINDINGS: Unchanged 3.5 cm anterior LEFT basal ganglia intraparenchymal hemorrhage with adjacent edema. Interventricular extension of the hemorrhage in the 3rd and lateral ventricles that appears similar p revious study with mild hydrocephalus. Unchanged RIGHT anterior ventriculostomy with the tip in the roof of the 3rd ventricle. Small amount of subarachnoid hemorrhage adjacent to the cerebrum on the RIGHT laterally that's unchan ged without mass effect. No other acute change identified. IMPRESSION: Unchanged LEFT basal ganglia intraparenchymal hemorrhage with adjacent edema with interventricular ex tension. Unchanged mild hydrocephalus with RIGHT anterior ventriculostomy tube. Unchanged subarachnoid hemorrhage RIGHT cerebrum. ELECTRONICALLY SIGNED BY: Jesse Mckay MD Jan 08, 2020 3:40:33 AM [employer] COORDIN[employer] This report is intended for review by the ordering physician only, in accordance of law. If you recei ve this report in error, please call [facility] at [phone]. FINAL REPORT Exam: Head CT without contrast HISTORY: Intraventricular hemorrhage. Hydrocephalus. COMPARISON: 01/07/2020 FINDINGS: Hemorrhage: Stable intracranial hemorrhage involving the ventricular system, subarachnoid space and r ight deep mojica matter structures. Brain parenchyma: Cortical mojica-white matter differentiation is preserved. No mass effect or midline shift. Basilar cisterns are patent.Stable white matter hypodensities due to chronic small vessel ischemic change Ventricular system: Stable configuration of ventricular system. Stable ventriculoperitoneal shunt cat heter, via the right frontal approach. Distal tip is unchanged in position. Calvarium: Stable postoperative changes in the right frontal calvarium. Sinuses and mastoid air cells: Adequate aeration. IMPRESSION: This report is in agreement with the preliminary report by [facility]. Stable intracranial hemo rrhage, stable configuration of the ventricular system. Stable ventriculoperitoneal shunt catheter. Transcribed Date/Time: 01/08/2020 8:10 AM
--- NOTE | 2020-01-08 08:11 | RAD ---
Portable frontal chest radiograph: 01/08/2020 COMPARISON: 01/07/2020 HISTORY: Ventilated patient FINDINGS: Stable tracheostomy tube and left vascular catheter. Aortic knob is tortuous/prominent and unchanged. No pneumothorax, pleural fluid, focal consolidation, or alveolar edema. Aeration has improved within the left lung base. IMPRESSION: No focal consolidation or alveolar edema. Improved aeration within the left lung base.
--- NOTE | 2020-01-08 09:07 | PRG ---
DATE OF SERVICE: 01/08/2020 SUBJECTIVE: This morning, status post trach and PEG. Doing well. OBJECTIVE: VITAL SIGNS: Pulse 80, saturations 100%, respiratory rate 10, blood pressure 106/63. CHEST: No wheezing or crackles. CARDIAC: Normal S1, S2. No gallops. ABDOMEN: No masses. LABORATORY DATA: White count only 9000. Lytes are normal. PO2 of 88, pCO2 of 36, pH of 7.45. IMAGING STUDIES: X-ray is clear. IMPRESSION AND PLAN: Intracerebral hemorrhage, thalamic bleed, respiratory failure, status post trach and PEG. I do not see any pneumonia. Zosyn is discontinued. PT, supportive care, nutrition, eventually placement. One half hour of critical time. Job ID: [id number]
[2020-01-08] MEDS: Losartan 25 MG TAB PO SCH (09:50)
[2020-01-08] MEDS: Pantoprazole 40 MG VIAL IVP SCH ×2 (09:50→21:43)
[2020-01-08] MEDS: Polyethylene Glycol 3350 17 GM Packet PER TUBE SCH (09:51)
--- NOTE | 2020-01-08 16:00 | PDOC.HOSPP ---
- Subjective Encounter Date: 01/08/20 Encounter Time: 11:00 Subjective: The patient is non-verbal. She does respond to painful stimuli more today. Still has trach and PEG. [facility], if ICP remains less than 10, plan to pull the drain Per sister, patient does open her eyes spontaneously Fevers have improved, zosyn discontinued No BM today, has had no residuals from feeding tube - Objective Vital Signs & Weight: Vital Signs (12 hours) Temp Pulse Pulse Pulse Resp BP BP 01/08/20 12:00 99.3 F 01/08/20 09:15 85 85 109/67 107/65 01/08/20 08:00 17 01/08/20 07:47 01/08/20 07:05 82 01/08/20 07:00 98.3 F 01/08/20 06:00 17 01/08/20 04:00 99.9 F H 15 Pulse Ox Pulse Ox Pulse Ox 01/08/20 12:00 01/08/20 09:15 100 100 01/08/20 08:00 01/08/20 07:47 100 01/08/20 07:05 01/08/20 07:00 01/08/20 06:00 01/08/20 04:00 Weight Admit Weight 193 lb 5.526 oz Weight 187 lb 6.287 oz Most Recent Monitor Data Heart Rate from ECG 82 NIBP 131/72 NIBP BP-Mean 91 Respiration from ECG 29 SpO2 100 I&O: 01/07/20 01/08/20 01/09/20 06:59 06:59 06:59 Intake Total 2701 2152 Output Total 3076 2360 1015 Balance -375 -992 -1012 Result Diagrams: 01/08/20 03:25 01/08/20 03:25 Additional Labs: Accuchecks 01/08/20 01/07/20 01/07/20 10:34 22:01 16:27 POC Glucose 125 H 125 H 113 H Hospitalist ROS - Review of Systems ROS unobtainable: due to mental status Constitutional: reports: fever - Medication Medications: Active Medications Generic Name Dose Route Start Last Admin Trade Name Freq PRN Reason Stop Dose Admin Acetaminophen 650 mg 12/31/19 14:48 01/06/20 16:58 Tylenol PO 650 mg Q4H PRN Administration Headache/Fever Or Mild Pain Docusate Sodium 100 mg 12/31/19 14:48 01/04/20 16:22 Colace PO 100 mg BIDPRN PRN Administration Constipation Hydralazine HCl 5 mg 12/31/19 14:48 01/04/20 22:04 Apresoline SLOW IVP 5 mg Q15MIN PRN Administration SBP > 160 mmHg Potassium Chloride 40 meq/ 100 mls @ 50 mls/hr 01/01/20 07:41 01/02/20 04:34 Device IVPB 100 mls ASDIR PRN Administration FOR SERUM K+ 2.5 - 3.5 Sodium Chloride 1,000 mls @ 75 mls/hr 01/07/20 00:30 01/08/20 03:54 Normal Saline 0.9% IV 1,000 mls .[id number] LALITA Administration Losartan Potassium 25 mg 01/02/20 09:00 01/08/20 09:50 Cozaar PO 25 mg DAILY LALITA Administration Morphine Sulfate 2 mg 12/31/19 14:48 01/08/20 03:53 Morphine SLOW IVP 2 mg Q1H PRN Administration Moderate Breakthrough Pain Pantoprazole Sodium 40 mg 12/31/19 21:00 01/08/20 09:50 Protonix IVP 40 mg Q12HR LALITA Administration Polyethylene Glycol 17 gm 01/06/20 09:00 01/08/20 09:51 Miralax PER TUBE 17 gm DAILY LALITA Administration Potassium Chloride 40 meq 01/01/20 07:41 01/01/20 10:26 Klor-Con PER TUBE 40 meq ASDIR PRN Administration FOR SERUM K+ 2.5-3.5 Sodium Chloride 10 ml 12/31/19 14:48 01/08/20 09:50 Flush - Normal Saline IVF 10 ml PRN PRN Administration Saline Flush - Exam General Appearance: NAD, awake alert General - other findings: nonverbal Eye: PERRL, anicteric sclera ENT: normocephalic atraumatic, no oropharyngeal lesions Neck: supple, no JVD Heart: RRR, no gallops, no rubs Heart - other findings: systolic murmur in aortic area Respiratory: CTAB, no wheezes, no rales, no ronchi Gastrointestinal: soft, non-tender, non-distended, normal bowel sounds Extremities: no cyanosis, no clubbing, no edema Skin: normal turgor, no lesions, no rashes Neurological - other findings: responds to noxious stimuli Hosp A/P (1) ICH (intracerebral hemorrhage) Code(s): I61.9 - NONTRAUMATIC INTRACEREBRAL HEMORRHAGE, UNSPECIFIED Status: Acute (2) Hypertension Code(s): I10 - ESSENTIAL (PRIMARY) HYPERTENSION Status: Acute (3) Diabetes mellitus type 2 in nonobese Code(s): E11.9 - TYPE 2 DIABETES MELLITUS WITHOUT COMPLICATIONS Status: Acute (4) Anemia Code(s): D64.9 - ANEMIA, UNSPECIFIED Status: Acute (5) Hypokalemia Code(s): E87.6 - HYPOKALEMIA Status: Acute (6) Leukocytosis Code(s): D72.829 - ELEVATED WHITE BLOOD CELL COUNT, UNSPECIFIED Status: Acute - Plan CT brain: size of intraparenchymal hemorrhage in left basal ganglia similar appearing Chest X ray 01/03: left lower lobe consolidation vs collapse Venogram : doppler showed no evidence of DVT Chest Xray 01/04: no change Chest Xray 01/07: lungs clear CT head 01/08: unchanged left basal ganglia hemorrhage with adjacent edema with interventricular extension. Unchanged mild hydrocephalus. Unchanged SA hemorrhage right cerebrum This is a 74 year old female who was found unresponsive, presented with intraventricular hemorrage Intraventricular hemorrhage s/p intubation - repeat CT head stable on 01/08. EVD Clamped with possibility to remove if ICP remains stable -responds to noxious stimuli - s/p trach and PEG 01/05 - Sepsis possibly from pneumonia vs [employer] fever - had fever 01/05, blood cultures negative, UA negative, started zosyn empirically. Chest X rAy 01/03 showed left lower lobe consolidation, repeat chest Xray 01/07 normal -zosyn discontinued 01/08 - fevers improved #Hypernatremia #Malnutrition -hypernatremia resolved - PEG tube feeding Hypertension - controlled -continue losartan Type II DM - blood sugars controlled. Blood sugars q6 hours Hypokalemia -resolved Anemia - Hb stable at 10.1 Code status: full code
[2020-01-09] MEDS: Acetaminophen 325 MG TAB PO PRN ×2 (05:05→20:53)
[2020-01-09] MEDS: Sodium Chloride 0.9% 1,000 ML IV SCH (06:37)
[2020-01-09] MEDS ORDERED: levETIRAcetam In NaCl (Iso-Os) 1,000 MG in Premix Bag 1 BAG IVPB SCH (08:15)
--- NOTE | 2020-01-09 08:35 | PRG ---
DATE OF SERVICE: 01/09/2020 SUBJECTIVE: The patient is seen and examined at the bedside. She is in ICU bed A3. She is not sedated. She had PEG and trach done couple of days ago. She is tolerating her tube feeding well without residuals. OBJECTIVE: VITAL SIGNS: Blood pressure is 116/64, pulse is 86, respiratory rate is 29, and O2 saturation is 100%. HEENT: Head is normocephalic. Pupils are in midline with mild response to light. Sclerae are nonicteric. Conjunctivae are pinkish. Tracheostomy tube in place. She is connected to the ventilator. LUNGS: Breath sounds diminished at both bases. HEART: S1 and S2 normal. No S3. No S4. ABDOMEN: Soft, nondistended. Bowel sounds are present. EXTREMITIES: No clubbing, cyanosis, or edema. NEUROLOGIC: She is arousable, but with minimal response. She does not have any significant motor function in upper or lower extremities. She does not follow. LABORATORY DATA: Glucose is ranging from 121 to 137. Microbiology, a Gram-stain notes CSF, no WBCs and no organisms seen. CSF total protein is 59. A chest x-ray done this morning did not show any significant changes comparing to the previous one. IMPRESSION: 1. Intracerebral hemorrhage. 2. Hypertension. 3. Diabetes mellitus, type 2, diet controlled. 4. Anemia. 5. Hypokalemia, resolved. DISCUSSION: The patient is status post tracheostomy and PEG tube placement on the 29 of December. There is no problem with those two. EVD was removed. She is tolerating feeding without any residuals through the PEG tube. Her blood pressure is controlled. Her glycemia is ranging from 120s to 130s continuously. She never required any coverage, so we are going to stop her Accu-Cheks. Her hypokalemia resolved and her hemoglobin is stable around 10. We will continue current regimen. We will continue ventilator support. Per Pulmonary recommendation, awaiting for LTAC placement. Continue DVT prophylaxis with SCDs and continue tube feeding. Job ID: [id number]
[2020-01-09] MEDS ORDERED: Activase 2 MG VIAL CATH SCH (08:45)
--- NOTE | 2020-01-09 08:59 | PRG ---
DATE OF SERVICE: 01/09/2020 SUBJECTIVE: This patient is resting comfortably on mechanical ventilation. She was on trach collar most of the day yesterday, but was placed back on mechanical ventilation earlier this morning. She does not appear to be in any respiratory distress at this time. OBJECTIVE: VITAL SIGNS: Her temperature is 98.7, pulse 81, blood pressure 130/70, O2 saturation 100%. HEENT: Unremarkable. NECK: She has a tracheostomy in place. CHEST: She has left subclavian central line. Clear breath sounds. CARDIAC: S1, S2 regular. ABDOMEN: PEG tube appears to be clean. EXTREMITIES: Trace edema. LABORATORY DATA: None were done today. ASSESSMENT: 1. Status post intracerebral hemorrhage. 2. Respiratory failure, requiring mechanical ventilation. PLAN: We will go ahead and have a midline placed and take central line out. I will stop her IV fluids since she is tolerating tube feeds. The Neurosurgery group as put her on increased dose of Keppra. The hospitalist group has changed her to metoprolol because of some runs of presumed SVT. I will place her back on trach collar and see how she tolerates. I would suggest LTAC referral if that has not been done. Job ID: [id number]
[2020-01-09] MEDS: Pantoprazole 40 MG VIAL IVP SCH ×2 (09:00→20:53)
[2020-01-09] MEDS: Metoprolol Tartrate 25 MG TAB PO SCH ×2 (09:00→20:53)
[2020-01-09] MEDS: Polyethylene Glycol 3350 17 GM Packet PER TUBE SCH (09:00)
[2020-01-09] MEDS ORDERED: Sterile Water 10 ML VIAL IVP SCH (09:00)
--- NOTE | 2020-01-09 09:24 | PRG ---
DATE OF SERVICE: 01/09/2020 The patient is now 9 days out from acute intraparenchymal hemorrhage with intraventricular extension. This did require EVD placement, but this was weaned and removed yesterday. She has had intermittent fevers. CSF cultures were sent yesterday and thus far Gram stain and 24-hour cultures CSF have remained negative. Her chest x-ray, blood cultures, and urinalysis are also all negative. She has also received trach and PEG. Yesterday, nursing and family report some intermittent shaking of the head and face. Upon my arrival this morning, the patient is also having similar event. Upon my arrival, the patient has short duration of shaking of the head and face. I suspect this represents focal seizure. Pupils remain equal, small, but they are minimally reactive. She localizes weakly in the upper extremities. She withdraws to the lower extremities briskly. With regard to this shaking, I suspect possible focal seizure event. I have loaded her with Keppra with 1000 mg now and we will continue 500 mg of Keppra b.i.d. We will also consult Neurology for evaluation of possible seizures. Job ID: [id number] [facility]
--- NOTE | 2020-01-09 12:03 | RAD ---
EXAM: CHEST ONE VIEW HISTORY: On ventilator. Follow-up evaluation. COMPARISON: 01/08/2020 FINDINGS: Tracheostomy device and left subclavian central venous catheter remain in place. Thoracic aortic arch remains prominent and tortuous similar to prior study. Cardiac silhouette is magnified by patient rotation and portable technique. Mild volume loss is present at the left lung base. No consolidation or pleural fluid is appreciated. Chest is stable compared to prior exam. IMPRESSION: Stable chest.
[2020-01-09] MEDS: hydrALAZINE 20 MG/ML VIAL SLOW IVP PRN (12:09)
--- NOTE | 2020-01-09 14:03 | PRG ---
DATE OF SERVICE: 01/09/2020 The patient is seen and examined. I agree with Natty Aguilar's evaluation on 01/09/2020. The patient seems generally stable. She has had her trach and PEG. She has had some spells of focal shaking of the head of uncertain etiology. We will start her on Keppra and consult Neurology. She has had low-grade temperatures and all tests including CSF cultures are negative thus far. Job ID: [id number]
[2020-01-10] MEDS: Labetalol HCl 100 MG/20 ML VIAL SLOW IVP PRN (03:29)
[2020-01-10 07:49] LABS: #Basophils 0.1 thou/uL (0.0-0.2); #Eosinphils 0.2 thou/uL (0.0-0.7); #Monocytes 0.9 thou/uL (0.11-0.59); #Neutrophils 9.2 thou/uL (1.40-6.50); %Basophils 0.5 % (0.0-1.0); %Eosinophils 1.9 % (0.0-10.0); %Lymphocytes 8.9 % (21.0-51.0); %Monocytes 7.7 % (0.0-10.0); Hemoglobin 10.1 g/dL (12.0-16.0); Mean Corpuscular HGB CONC 32.5 g/dL (32.0-36.0); Mean Corpuscular Hemoglobin 28.6 pg (27.0-31.0); Mean Corpuscular Volume 88.3 fL (78.0-98.0); Mean Platelet Volume 8.9 fL (7.4-10.4); Platelet Count 285 thou/uL (130-400); RBC Distribution Width 13.7 % (11.5-14.5); Red Blood Cell (RBC) Count 3.52 mill/uL (4.20-5.40); White Blood Cell (WBC) Count 11.3 thou/uL (4.8-10.8)
[2020-01-10 08:11] LABS: Anion Gap 16 mmol/L (10-20); BUN (Urea Nitrogen) 23 mg/dL (9.8-20.1); Calc. Creatinine Clearance 87 mL/min (70-130); Calcium 9.6 mg/dL (7.8-10.44); Carbon Dioxide 22 mmol/L (23-31); Chloride 117 mmol/L (98-107); Estimated GFR-MDRD Greater than 90; Glucose 142 mg/dL (83-110); Potassium 3.9 mmol/L (3.5-5.1); Sodium 151 mmol/L (136-145)
[2020-01-10] MEDS ORDERED: Dextrose 5% in Water 1,000 ML IV SCH (08:45)
--- NOTE | 2020-01-10 08:55 | PRG ---
DATE OF SERVICE: 01/10/2020 The patient is now 10 days out from acute intraparenchymal hemorrhage with intraventricular extension. She continues to have intermittent shaking of the head and face. She was started on Keppra, which I have continued 500 b.i.d. Neurology has been consulted for evaluation of possible underlying seizures. She has been running intermittent fevers, but her T-max overnight was 99.8. Thus far, her Gram stain, CSF cultures, chest x-ray, blood cultures, and urinalysis have remained negative. Neurologically, her exam has remained unchanged. She will open her eyes and weakly localize with the upper extremities. We will continue to monitor her progress closely. I will defer any ongoing seizure medication adjustments to the Neurology Team. Job ID: [id number]
--- NOTE | 2020-01-10 09:01 | PRG ---
DATE OF SERVICE: 01/10/2020 SUBJECTIVE: This patient did not require mechanical ventilation last night. She seems to be doing well . OBJECTIVE: VITAL SIGNS: Temperature 99.6, pulse 88, blood pressure 126/83. HEENT: Unremarkable. NECK: No adenopathy or JVD. Trach in good position. LUNGS: Clear anteriorly. CARDIAC: S1, S2. Regular. ABDOMEN: Soft. EXTREMITIES: With trace edema. LABORATORY DATA: White blood cell count 11.3, hematocrit 31, and platelet count 285. Sodium 151, potassium 3.9, chloride 117, CO2 of 22, BUN 23, creatinine 0.7, glucose 142. ASSESSMENT: 1. Status post acute respiratory failure, requiring mechanical ventilation and trach. 2. Intracerebral hemorrhage. 3. Elevated sodium. PLAN: We will start some D5W for her elevated sodium. Recheck that value tomorrow. Other than that, she can be transferred to [facility]. Job ID: [id number]
--- NOTE | 2020-01-10 09:06 | CON ---
DATE OF CONSULTATION: 01/10/2020 CONSULTING PHYSICIAN: Neurosurgery Service. IMPRESSION: The patient is status post left basal ganglia hemorrhage with intraventricular spread and what looks to be secondary low-grade seizures and continued lethargy. PLAN: 1. Increase Keppra to a 1000 mg twice a day. 2. Consider EEG tomorrow, if she fails to improve in her level of consciousness. HISTORY OF PRESENT ILLNESS: Ms. Tyson is a 74-year-old black female with a past history of hypertension, diabetes, and hyperlipidemia, who presented with acute left basal ganglia hemorrhage. She has been seen by Neurosurgery. She developed some shift and some ventricular enlargement. She had a ventriculostomy placed few days. She has failed to fully regain consciousness. Nurses have witnessed some low-grade head shaking that occurs periodically, especially with stimulation. She has otherwise not showed any sign of worsening based on her CT scans. She has otherwise been stable and is not on any ventilatory support at this point. PAST MEDICAL HISTORY: As listed above. ALLERGIES: NONE REPORTED. SOCIAL HISTORY: Unremarkable. FAMILY HISTORY: Not obtainable. REVIEW OF SYSTEMS: Not obtainable. PHYSICAL EXAMINATION: VITAL SIGNS: Blood pressure 140s/80s, pulse 87 in the sinus rhythm, saturations 100%. HEENT: Pupils equal. Conjunctivae clear. Eyes are conjugate. Cranium, normocephalic and atraumatic. NECK: Rigid. EXTREMITIES: No cyanosis or edema. NEUROLOGIC: She is deeply lethargic and has some minimal response to painful stimulation. Her face appears to be symmetric. Tone seems symmetric as well. She has no spontaneous movements or abnormal movements. IMAGING: Reviewed. SUMMARY: This is an unfortunate elderly lady with fairly large intracranial hemorrhage with secondary intraventricular spread and probable secondary seizure activity. We will increase her Keppra and see how she responds. Job ID: [id number]
[2020-01-10] MEDS: levETIRAcetam In NaCl (Iso-Os) 1,000 MG in Premix Bag 1 BAG IVPB SCH ×2 (09:14→21:15)
[2020-01-10] MEDS: Pantoprazole 40 MG VIAL IVP SCH ×2 (09:16→21:16)
[2020-01-10] MEDS: Polyethylene Glycol 3350 17 GM Packet PER TUBE SCH (09:16)
[2020-01-10] MEDS: Metoprolol Tartrate 25 MG TAB PO SCH ×3 (09:16→21:16)
--- NOTE | 2020-01-10 12:47 | PRG ---
DATE OF SERVICE: 01/10/2020 SUBJECTIVE: The patient is seen and examined at the bedside. There are no any unexpected events overnight. The patient had one short run of SVT this morning. She is tolerating her feeding without any problems, but she is not really waking up. She is not more responsive. OBJECTIVE: VITAL SIGNS: Blood pressure is 121/71, pulse is 87, respiratory rate is 38, O2 saturation is 100. She is not arousable. HEENT: Her pupils are midsized, responding to light, somewhat sluggish way. Sclerae are nonicteric. She has tracheostomy tube in place. She is connected to the ventilator. LUNGS: Clear. HEART: S1, S2 normal. ABDOMEN: Soft. Nondistended. EXTREMITIES: No clubbing, cyanosis, or edema. NEUROLOGICAL: Upper and lower extremities without any spontaneous movements. LABORATORY DATA: Labs showed white count of 11.3, hemoglobin of 10.1, hematocrit 31.1, platelet count 285,000. Sodium of 151, potassium 3.9, chloride 117, CO2 of 22, BUN 23, creatinine 0.75. Glycemia is ranging from 121-137. Calcium 9.6. Microbiology, spinal fluid no growth. Two blood cultures negative. Chest x-ray was done yesterday and it showed no new findings. IMPRESSION: 1. Intracerebral hemorrhage with extension to the ventricles. 2. Hypertension. 3. Diabetes mellitus type 2, diet controlled. 4. Hypernatremia, hyperchloremia. 5. Status post tracheostomy and PEG tube placement. 6. Hypokalemia, resolved. 7. Short runs of supraventricular tachycardia yesterday. She was placed on metoprolol small dose and she had additional short run of supraventricular tachycardia this morning. PLAN: Plan is to increase the dose on metoprolol to 25 mg twice a day. She required additional coverage for her blood pressure with hydralazine yesterday, so doubling the dose on metoprolol might help to control her blood pressure. The patient was seen by Dr. Kitchen who suspect that she might have seizures. Her Keppra was increased to 1000 mg IV piggyback every 12 hours and she will continue on ventilator support per Pulmonary's recommendation and she will continue her PEG tube feeding. She tolerates that fine and she will require LTAC placement after the discharge. Job ID: [id number]
[2020-01-11 03:43] LABS: #Basophils 0.1 thou/uL (0.0-0.2); #Eosinphils 0.2 thou/uL (0.0-0.7); #Lymphocytes 1.3 thou/uL (1.20-3.40); #Monocytes 0.9 thou/uL (0.11-0.59); #Neutrophils 14.6 thou/uL (1.40-6.50); %Basophils 0.4 % (0.0-1.0); %Eosinophils 0.9 % (0.0-10.0); %Lymphocytes 7.7 % (21.0-51.0); %Monocytes 5.3 % (0.0-10.0); %Neutrophils 85.6 % (42.0-75.0); Hemoglobin 10.7 g/dL (12.0-16.0); Mean Corpuscular HGB CONC 33.4 g/dL (32.0-36.0); Mean Corpuscular Hemoglobin 29.2 pg (27.0-31.0); Mean Corpuscular Volume 87.5 fL (78.0-98.0); Mean Platelet Volume 9.1 fL (7.4-10.4); Platelet Count 313 thou/uL (130-400); RBC Distribution Width 13.7 % (11.5-14.5); Red Blood Cell (RBC) Count 3.66 mill/uL (4.20-5.40); White Blood Cell (WBC) Count 17.1 thou/uL (4.8-10.8)
[2020-01-11 04:02] LABS: Anion Gap 19 mmol/L (10-20); BUN (Urea Nitrogen) 25 mg/dL (9.8-20.1); Calc. Creatinine Clearance 86 mL/min (70-130); Calcium 9.8 mg/dL (7.8-10.44); Carbon Dioxide 21 mmol/L (23-31); Chloride 119 mmol/L (98-107); Estimated GFR-MDRD 90; Glucose 132 mg/dL (83-110); Potassium 3.5 mmol/L (3.5-5.1); Sodium 155 mmol/L (136-145)
[2020-01-11] MEDS: Acetaminophen 325 MG TAB PO PRN ×2 (05:48→20:24)
[2020-01-11] MEDS ORDERED: Sodium Chloride 0.9% 1,000 ML IV SCH ×2 (07:00→16:00)
--- NOTE | 2020-01-11 08:07 | RAD ---
CHEST 1 VIEW PORTABLE: Date: 01/11/2020 COMPARISON: 01/09/2020. HISTORY: Follow-up pneumonia. COMPARISON: Tracheostomy tube in place. Minimal cardiomegaly with some pleural and parenchymal opacity changes in the left costophrenic angle, left lower lobe, and retrocardiac region, worsening from prior study. T his is certainly concerning for the possibility of developing pneumonia and/or atelectasis. Right gordo g is clear. IMPRESSION: Progressive pleural and parenchymal opacity changes in the left base. POS: TPC
--- NOTE | 2020-01-11 08:13 | PRG ---
DATE OF SERVICE: 01/11/2020 I just left Ms. Tyson's Intermediate Care Unit room this morning. Over the weekend, I see temperatures recorded of 100.1 degrees Fahrenheit over the last 24 hours. No fevers have been recorded on the electronic vital signs. Blood pressures have been in 1 teens to 140s. On examination, Ms. Tyson looks exhausted. She is breathing 35 to 40 times a minute with enough sternal stimulation. She opens her eyes and looks around. She grimaces quite easily. She will withdraw her hands and feet from painful stimulus, but she is not localizing for me due to her exhaustion. Nursing reports brown-colored sputum coming when she coughs through her tracheostomy. I reviewed all the cultures done for fevers last week and I do not see any sputum culture or respiratory culture at all. CSF cultures been negative. Today, we will send sputum for culture. Ask Respiratory Therapy to collect it, if necessary. A chest x-ray to be ordered. I believe she is suffering from pneumonia and this tiring her significantly. Hopefully, we can stay ahead of this with our cultures and antibiotics to improve her respiratory status. We will get a CT scan to ensure that the brain itself looks the same as it did last week. Job ID: [id number]
--- NOTE | 2020-01-11 08:32 | CT ---
BRAIN CT WITHOUT IV CONTRAST: Date: 01/11/2020 HISTORY: Follow-up intraventricular hemorrhage. COMPARISON: 01/08/2020. FINDINGS: The previously noted right ventriculostomy tube has been removed. There is persistent hemorrhage in t he left basal ganglia and periventricular region and intraventricular hemorrhage with minimal right-s ided mass effect but little overall change. No evidence for new hemorrhage. IMPRESSION: Persistent slightly improving intraventricular and intraparenchymal hemorrhagic changes. Removal of t he ventriculostomy tube. No evidence for new hemorrhage. POS: TPC
--- NOTE | 2020-01-11 09:07 | PRG ---
DATE OF SERVICE: 01/11/2020 SUBJECTIVE: A 74-year-old female, PEG in place, still encephalopathic, maximum temperature has been 99.9. She has had multiple cultures done. OBJECTIVE: VITAL SIGNS: Pulse 105, blood pressure __143\76, respiratory rate 18, sats 98% on trach collar. CHEST: Decreased breath sounds. Minimal rhonchi. CARDIAC: Normal S1 and S2. ABDOMEN: No mass. LABORATORY DATA: Sodium is 155. White count 17,000. H and H are normal. Platelet count 313. IMAGING STUDIES: CT brain, intraventricular and intraparenchymal hemorrhage, some improvement. Chest x-ray shows a questionable left retrocardiac density. IMPRESSION: 1. Intracerebral hemorrhage. 2. Fever. 3. Pneumonia. PLAN:probably start broad-spectrum antibiotics. PT, supportive care. Sodium is elevated. IV fluids as per Neurosurgery. I will follow. Job ID: [id number] MTDD
--- NOTE | 2020-01-11 09:17 | PDOC.GSPN ---
Surgery Progress Note: Subj - Subjective Narrative: More secretions this morning Surgery Progress Note: Obj - Vital signs Vital signs: Vital Signs - Most Recent Temp Pulse Resp BP Pulse Ox 99.9 F H 93 15 153/85 H 95 01/11/20 07:35 01/10/20 03:29 01/09/20 07:50 01/10/20 03:29 01/10/20 20:00 - Physical Exam General: no distress Neck: other (Trach site clear, no bleeding) Abdomen: soft, non tender, nondistended, other (PEG bumper loosened) Surgery Progress Note: Results - Labs Result Diagrams: 01/11/20 03:12 01/11/20 03:12 Lab results: Laboratory Results - last 24 hr 01/11/20 01/11/20 01/11/20 00:09 03:12 03:12 WBC 17.1 H RBC 3.66 L Hgb 10.7 L Hct 32.0 L MCV 87.5 MCH 29.2 MCHC 33.4 RDW 13.7 Plt Count 313 MPV 9.1 Neutrophils % 85.6 H Lymphocytes % 7.7 L Monocytes % 5.3 Eosinophils % 0.9 Basophils % 0.4 Neutrophils # 14.6 H Lymphocytes # 1.3 Monocytes # 0.9 H Eosinophils # 0.2 Basophils # 0.1 Sodium 155 H Potassium 3.5 Chloride 119 H Carbon Dioxide 21 L Anion Gap 19 BUN 25 H Creatinine 0.76 Estimated GFR (MDRD) 90 Glucose 132 H POC Glucose 129 H Calcium 9.8 01/11/20 06:02 WBC RBC Hgb Hct MCV MCH MCHC RDW Plt Count MPV Neutrophils % Lymphocytes % Monocytes % Eosinophils % Basophils % Neutrophils # Lymphocytes # Monocytes # Eosinophils # Basophils # Sodium Potassium Chloride Carbon Dioxide Anion Gap BUN Creatinine Estimated GFR (MDRD) Glucose POC Glucose 150 H Calcium Surgery Progress Note: A/P - Problem (1) ICH (intracerebral hemorrhage) Current Visit: Yes Code(s): I61.9 - NONTRAUMATIC INTRACEREBRAL HEMORRHAGE, UNSPECIFIED Status: Acute - Plan Plan: POD 4 Trach/PEG -DC trach collar black sutures -start trach care -PEG site loosened
[2020-01-11] MEDS: levETIRAcetam In NaCl (Iso-Os) 1,000 MG in Premix Bag 1 BAG IVPB SCH ×2 (10:05→20:23)
[2020-01-11] MEDS: Pantoprazole 40 MG VIAL IVP SCH ×2 (10:06→20:24)
[2020-01-11] MEDS: Polyethylene Glycol 3350 17 GM Packet PER TUBE SCH (10:06)
[2020-01-11] MEDS: Metoprolol Tartrate 25 MG TAB PO SCH ×2 (10:06→20:24)
[2020-01-11] MEDS: Piperacillin/Tazobactam 4.5 GM in Sodium Chloride 0.9% 100 ML IVPB SCH ×3 (13:03→23:55)
--- NOTE | 2020-01-11 13:03 | ULT ---
EXAM: Bilateral lower extremity venous ultrasound HISTORY: Bilateral lower extremity pain and edema COMPARISON: 01/04/2020 TECHNIQUE: Multiplanar grayscale and color Doppler images were obtained in a bilateral lower extremit y venous ultrasound. Spectral analysis of the Doppler waveforms were performed. FINDINGS: The bilateral common femoral vein, profunda femoral veins, superficial femoral veins, and p opliteal veins are normal in appearance without visible thrombus. These vessels demonstrate normal compression, flow, and augmentation. The bilateral posterior tibial veins and greater saphenous veins are patent without evidence of throm bus. IMPRESSION: No evidence of DVT.
[2020-01-11] MEDS ORDERED: Dextrose 5% in Water 1,000 ML IV SCH (13:15)
--- NOTE | 2020-01-11 13:26 | PDOC.HOSPP ---
- Subjective Encounter Date: 01/11/20 Encounter Time: 09:45 Subjective: overnight, continued to have twitching like left upper extremity per daughter, usually immediately or during coughing spells. No change otherwise. - Objective Vital Signs & Weight: Vital Signs (12 hours) Temp Pulse Pulse BP BP Pulse Ox Pulse Ox 01/11/20 11:18 99.1 F 01/11/20 09:34 89 93 130/73 110/73 100 01/11/20 08:00 100 01/11/20 07:35 99.9 F H 01/11/20 03:18 97.6 F Pulse Ox 01/11/20 11:18 01/11/20 09:34 100 01/11/20 08:00 01/11/20 07:35 01/11/20 03:18 Weight Admit Weight 193 lb 5.526 oz Weight 180 lb 1.6 oz Most Recent Monitor Data Heart Rate from ECG 78 NIBP 118/67 NIBP BP-Mean 84 Respiration from ECG 45 SpO2 99 I&O: 01/10/20 01/11/20 01/12/20 06:59 06:59 06:59 Intake Total 1734 2134 400 Output Total 2470 2680 Balance -736 -546 400 Result Diagrams: 01/11/20 03:12 01/11/20 03:12 Additional Labs: Accuchecks 01/11/20 01/11/20 01/11/20 12:27 06:02 00:09 POC Glucose 125 H 150 H 129 H Hospitalist ROS - Review of Systems ROS unobtainable: due to mental status - Medication Medications: Active Medications Generic Name Dose Route Start Last Admin Trade Name Scott PRN Reason Stop Dose Admin Acetaminophen 650 mg 12/31/19 14:48 01/11/20 05:48 Tylenol PO 650 mg Q4H PRN Administration Headache/Fever Or Mild Pain Docusate Sodium 100 mg 12/31/19 14:48 01/04/20 16:22 Colace PO 100 mg BIDPRN PRN Administration Constipation Hydralazine HCl 5 mg 12/31/19 14:48 01/04/20 22:04 Apresoline SLOW IVP 5 mg Q15MIN PRN Administration SBP > 160 mmHg Hydralazine HCl 10 mg 12/31/19 15:33 01/09/20 12:09 Apresoline SLOW IVP 10 mg Q4H PRN Administration SBP > 140 and HR < 70 Potassium Chloride 40 meq/ 100 mls @ 50 mls/hr 01/01/20 07:41 01/02/20 04:34 Device IVPB 100 mls ASDIR PRN Administration FOR SERUM K+ 2.5 - 3.5 Levetiracetam 1,000 mg/ Device 100 mls @ 200 mls/hr 01/10/20 09:00 01/11/20 10:05 IVPB 100 mls BID LALITA Administration Piperacillin Sod/Tazobactam 100 mls @ 200 mls/hr 01/11/20 12:00 01/11/20 13: 03 Sod 4.5 gm/ Sodium Chloride IVPB 100 mls Q6HR LALITA Administration Labetalol HCl 10 mg 12/31/19 14:48 01/10/20 03:29 Normodyne SLOW IVP 10 mg Q15MIN PRN Administration SBP > 140 mmHg Metoprolol Tartrate 25 mg 01/10/20 09:00 01/11/20 10:06 Lopressor PO 25 mg BID LALITA Administration Pantoprazole Sodium 40 mg 12/31/19 21:00 01/11/20 10:06 Protonix IVP 40 mg Q12HR LALITA Administration Polyethylene Glycol 17 gm 01/06/20 09:00 01/11/20 10:06 Miralax PER TUBE 17 gm DAILY LALITA Administration Potassium Chloride 40 meq 01/01/20 07:41 01/01/20 10:26 Klor-Con PER TUBE 40 meq ASDIR PRN Administration FOR SERUM K+ 2.5-3.5 Sodium Chloride 10 ml 12/31/19 14:48 01/11/20 06:44 Flush - Normal Saline IVF 10 ml PRN PRN Administration Saline Flush - Exam General Appearance: NAD General - other findings: contracts with painful stimulus Eye: PERRL ENT: dry oral mucosa Neck: no JVD Heart: no gallops Heart - other findings: regular rhythm, tachycardic at ~ 100 Respiratory: CTAB, no wheezes, no rales, rhonchi Gastrointestinal: soft, non-tender, non-distended, normal bowel sounds Extremities: no edema Neurological - other findings: contracts to painful stimulus Hosp A/P - Plan #intracranial hemorrhage with surrounding edema #intrventricular hemorrhage -CT head stable 2/24 - per nuerosurgery, goal Na around 155 for permissive hyperosmolarity #aspiration pneumonia -overnight borderline febrile, has had productive cough for a few days -per neurosurgery, tachypnic this morning Plan: -started zosyn -obtained respiratory cultures
[2020-01-11] MEDS ORDERED: Potassium Chloride 20 MEQ TAB PER TUBE SCH (15:45)
[2020-01-12 03:57] LABS: #Basophils 0.1 thou/uL (0.0-0.2); #Eosinphils 0.3 thou/uL (0.0-0.7); #Lymphocytes 1.4 thou/uL (1.20-3.40); #Neutrophils 14.2 thou/uL (1.40-6.50); %Basophils 0.4 % (0.0-1.0); %Eosinophils 1.8 % (0.0-10.0); %Lymphocytes 8.3 % (21.0-51.0); %Monocytes 5.8 % (0.0-10.0); %Neutrophils 83.8 % (42.0-75.0); Hemoglobin 9.9 g/dL (12.0-16.0); Mean Corpuscular HGB CONC 32.6 g/dL (32.0-36.0); Mean Corpuscular Hemoglobin 28.8 pg (27.0-31.0); Mean Corpuscular Volume 88.3 fL (78.0-98.0); Mean Platelet Volume 9.1 fL (7.4-10.4); Platelet Count 286 thou/uL (130-400); RBC Distribution Width 13.8 % (11.5-14.5); Red Blood Cell (RBC) Count 3.45 mill/uL (4.20-5.40); White Blood Cell (WBC) Count 16.9 thou/uL (4.8-10.8)
[2020-01-12 04:19] LABS: Anion Gap 13 mmol/L (10-20); BUN (Urea Nitrogen) 26 mg/dL (9.8-20.1); Calc. Creatinine Clearance 81 mL/min (70-130); Calcium 9.3 mg/dL (7.8-10.44); Carbon Dioxide 22 mmol/L (23-31); Chloride 121 mmol/L (98-107); Estimated GFR-MDRD 85; Glucose 129 mg/dL (83-110); Magnesium 2.4 mg/dL (1.6-2.6); Potassium 3.7 mmol/L (3.5-5.1); Sodium 152 mmol/L (136-145)
[2020-01-12] MEDS: Piperacillin/Tazobactam 4.5 GM in Sodium Chloride 0.9% 100 ML IVPB SCH ×3 (05:51→17:30)
--- NOTE | 2020-01-12 07:50 | PRG ---
DATE OF SERVICE: 01/12/2020 I saw Ms. Tyson in the intermediate care unit earlier this morning. Her sister was at bedside. Nursing reports no events overnight. Tube feed flushes have increased significantly from prior days in volume. Zosyn has been started. In the last 24 hours, I see a maximum temperature recorded of 100.6 degrees Fahrenheit. White blood cell count is at 16.9. Sodium is 152. Blood pressures have been in the 90s to 130s. On examination, Ms. Tyson is more alert this morning. She opens her eyes with stimulation. She smiles a bit. She looks around the room. There is some weak localization with both upper extremities and some fairly clear withdrawal. Zosyn is among the IV fluids at bedside. Plan today is to limit tube feed flushes to about 600 mL of water a day. We will continue IV fluids at a lower rate of 75 an hour. We will follow the white blood cell count and sodium tomorrow. She can be transferred to [facility] for number of hours during the day, and I think that will be good for her. She remains immobilized by her intraventricular hemorrhage, then a decision not to be made regarding IVC filtration or prophylactic dose of Lovenox. She is now 12 days out from her hemorrhage and four days out from removal of her external ventricular drain and I think starting prophylactic Lovenox this week would be reasonable on perhaps Saturday evening or . Job ID: [id number] MTDD
--- NOTE | 2020-01-12 09:17 | PRG ---
DATE OF SERVICE: 01/12/2020 SUBJECTIVE: This is a 74-year-old female status post trach and PEG, respiratory failure secondary to intracerebral thalamic bleed. OBJECTIVE: VITAL SIGNS: Temperature 98, blood pressure 120/61, pulse 91, saturations 100% trach collar, and respirations 30. GENERAL: She barely opens her eyes. CHEST: Bilateral rhonchi. CARDIAC: Normal S1 and S2. No gallops. ABDOMEN: No masses. LABORATORY DATA: X-ray shows a left-sided pneumonia. Sodium is 152. White count 16,000. ASSESSMENT AND PLAN: 1. Electrolyte imbalance, managed by Neurosurgery. 2. Aspiration pneumonia, on Zosyn, tracheostomy and percutaneous endoscopic gastrostomy. Eventually placement. Continue supportive care and PT. Job ID: [id number]
[2020-01-12] MEDS: Polyethylene Glycol 3350 17 GM Packet PER TUBE SCH (09:25)
[2020-01-12] MEDS: levETIRAcetam In NaCl (Iso-Os) 1,000 MG in Premix Bag 1 BAG IVPB SCH ×2 (09:25→20:08)
[2020-01-12] MEDS: Metoprolol Tartrate 25 MG TAB PO SCH ×2 (09:26→20:14)
[2020-01-12] MEDS: Pantoprazole 40 MG VIAL IVP SCH ×2 (09:26→20:09)
--- NOTE | 2020-01-12 10:07 | PDOC.HOSPP ---
- Subjective Encounter Date: 01/12/20 Encounter Time: 15:00 Subjective: Patient without events overnight. Fever to 100.6 yesterday afternoon, afebrile since. Tachypneic, other vitals stable. Going for CT chest to r/o PE in a few minutes. - Objective Vital Signs & Weight: Vital Signs (12 hours) Temp 01/12/20 07:39 98.6 F 01/12/20 04:00 99.5 F 01/11/20 23:48 98.6 F Weight Admit Weight 193 lb 5.526 oz Weight 180 lb 6.4 oz Most Recent Monitor Data Heart Rate from ECG 91 NIBP 128/61 NIBP BP-Mean 83 Respiration from ECG 38 SpO2 100 I&O: 01/11/20 01/12/20 01/13/20 06:59 06:59 06:59 Intake Total 2134 5930 100 Output Total 2680 2200 Balance -546 3730 100 Result Diagrams: 01/12/20 03:33 01/12/20 03:33 Additional Labs: Accuchecks 01/12/20 01/11/20 00:06 12:27 POC Glucose 143 H 125 H Hospitalist ROS - Review of Systems ROS unobtainable: due to mental status - Medication Medications: Active Medications Generic Name Dose Route Start Last Admin Trade Name Freq PRN Reason Stop Dose Admin Acetaminophen 650 mg 12/31/19 14:48 01/11/20 20:24 Tylenol PO 650 mg Q4H PRN Administration Headache/Fever Or Mild Pain Docusate Sodium 100 mg 12/31/19 14:48 01/04/20 16:22 Colace PO 100 mg BIDPRN PRN Administration Constipation Hydralazine HCl 5 mg 12/31/19 14:48 01/04/20 22:04 Apresoline SLOW IVP 5 mg Q15MIN PRN Administration SBP > 160 mmHg Hydralazine HCl 10 mg 12/31/19 15:33 01/09/20 12:09 Apresoline SLOW IVP 10 mg Q4H PRN Administration SBP > 140 and HR < 70 Potassium Chloride 40 meq/ 100 mls @ 50 mls/hr 01/01/20 07:41 01/02/20 04:34 Device IVPB 100 mls ASDIR PRN Administration FOR SERUM K+ 2.5 - 3.5 Levetiracetam 1,000 mg/ Device 100 mls @ 200 mls/hr 01/10/20 09:00 01/12/20 09:25 IVPB 100 mls BID LALITA Administration Piperacillin Sod/Tazobactam 100 mls @ 200 mls/hr 01/11/20 12:00 01/12/20 05: 51 Sod 4.5 gm/ Sodium Chloride IVPB 100 mls Q6HR LALITA Administration Labetalol HCl 10 mg 12/31/19 14:48 01/10/20 03:29 Normodyne SLOW IVP 10 mg Q15MIN PRN Administration SBP > 140 mmHg Metoprolol Tartrate 25 mg 01/10/20 09:00 01/12/20 09:26 Lopressor PO 25 mg BID LALITA Administration Pantoprazole Sodium 40 mg 12/31/19 21:00 01/12/20 09:26 Protonix IVP 40 mg Q12HR LALITA Administration Polyethylene Glycol 17 gm 01/06/20 09:00 01/12/20 09:25 Miralax PER TUBE 17 gm DAILY LALITA Administration Potassium Chloride 40 meq 01/01/20 07:41 01/01/20 10:26 Klor-Con PER TUBE 40 meq ASDIR PRN Administration FOR SERUM K+ 2.5-3.5 Sodium Chloride 10 ml 12/31/19 14:48 01/11/20 20:24 Flush - Normal Saline IVF 10 ml PRN PRN Administration Saline Flush - Exam General - other findings: unresponsive, with trach and peg in place Heart: RRR, no murmur, no gallops, no rubs Respiratory: no wheezes, no rales, no ronchi Respiratory - other findings: mild tachypnea Gastrointestinal: soft, non-tender, non-distended, normal bowel sounds Gastrointestinal - other findings: PEG in place Psychiatric - other findings: not responsive Hosp A/P (1) ICH (intracerebral hemorrhage) Code(s): I61.9 - NONTRAUMATIC INTRACEREBRAL HEMORRHAGE, UNSPECIFIED Status: Acute (2) Seizure Code(s): R56.9 - UNSPECIFIED CONVULSIONS Status: Acute (3) Diabetes mellitus type 2 in nonobese Code(s): E11.9 - TYPE 2 DIABETES MELLITUS WITHOUT COMPLICATIONS Status: Chronic (4) Hypertension Code(s): I10 - ESSENTIAL (PRIMARY) HYPERTENSION Status: Chronic (5) Anemia Code(s): D64.9 - ANEMIA, UNSPECIFIED Status: Chronic (6) Respiratory failure with hypoxia and hypercapnia Code(s): J96.91 - RESPIRATORY FAILURE, UNSPECIFIED WITH HYPOXIA; J96.92 - RESPIRATORY FAILURE, UNSPECIFIED WITH HYPERCAPNIA Status: Acute (7) Dysphagia Code(s): R13.10 - DYSPHAGIA, UNSPECIFIED Status: Acute (8) Sepsis Code(s): A41.9 - SEPSIS, UNSPECIFIED ORGANISM Status: Acute (9) Pneumonia Code(s): J18.9 - PNEUMONIA, UNSPECIFIED ORGANISM Status: Suspected Plan: growing staph from sputum - Plan #intracranial hemorrhage with surrounding edema #interventricular hemorrhage -CT head stable 01/11 - per nuerosurgery, goal Na around 155 for permissive hyperosmolarity #aspiration pneumonia -febrile, has had productive cough for a few days -per neurosurgery, tachypneic this morning S/P Trach and PEG Plan: -US neg for DVT -started zosyn and Linezolid, Bashir consulted -NS IV to keep Na around 155 -obtained respiratory cultures -CT chest for clots/pneumonia
--- NOTE | 2020-01-12 10:37 | EEG ---
Referring Physician: EDITH EEG # [id number] TEST TYPE: ROUTINE PORTABLE INPATIENT REPORT: AN EEG USING THE [employer] TEN-TWENTY SYSTEM OF ELECTRODE PLACEMENT WAS PERFORMED. The best waking background is a medium amplitude 6 hertz theta frequency. There was some fairly continuous phase-reversing sharp transients present in the right central-parietal region. No sustained seizure activity was seen. Photic stimulation was unremarkable. IMPRESSION: THIS IS AN ABNORMAL STUDY FOR THE FINDINGS OF DIFFUSE SLOWING WELL A SUPERIMPOSED SEIZURE FOCUS IN THE RIGHT CENTRAL-PARIETAL REGION. NO ACTIVE SEIZURE ACTIVITY WAS NOTED. Special Events Manager: VIJAY Assembler Finger Buffs: EEG.LARISA REYES
[2020-01-12] MEDS: Sodium Chloride 0.9% 1,000 ML IV SCH ×2 (13:14→21:30)
[2020-01-12] MEDS ORDERED: Iopamidol-370 76% 500 ML 1 ML ONE (13:49)
--- NOTE | 2020-01-12 15:33 | CT ---
CT angiogram chest with IV contrast and 3-D imaging HISTORY: Chest pain. Dyspnea. COMPARISON: None available. FINDINGS: There is good contrast opacification of the central pulmonary arteries and thoracic aorta w ith normal branching of the great vessels at the aortic arch. Tracheostomy appliance is in place. Calcified mediastinal lymph nodes are consistent with healed gran ulomatous disease. Parenchymal infiltrate at the posterior aspect of the left lower lobe extends to the left posterior costophrenic angle. Calcification in the arterial structures. Small lobular calcifications immediately medial to the righ t humeral head likely represent intracapsular loose bodies. The inferior most images show a subtle somewhat ill-defined low density mass within the lateral liver dome, measuring up to 1.5 cm length by 1.4 cm depth. Incompletely evaluated. IMPRESSION: No CT evidence of pulmonary embolus. Left lower lobe infiltrate within the dependent portion of the lung. Clinical correlation regarding o ther signs and symptoms of left lower lobe pneumonitis is required. Indeterminate low density mass within the liver. Please consider short-term follow-up with dedicated CT liver, without and with IV contrast, employing a liver protocol for better characterization. Atherosclerosis.
[2020-01-12] MEDS: Acetaminophen 325 MG TAB PO PRN (20:14)
--- NOTE | 2020-01-12 20:20 | CON ---
DATE OF CONSULTATION: 01/12/2020 REASON FOR CONSULTATION: Possible pneumonia. HISTORY OF PRESENT ILLNESS: A 74-year-old, who was admitted on December 31 after being found unconscious by relatives in her house's bathroom. She was brought by ENT after being intubated in the field and was diagnosed with intracerebral hemorrhage and intraventricular hemorrhage. CT [place] [facility] [place] did not show any aneurysms or infarct and she had a trach and PEG placed after a few days and now has developed abnormalities on chest x-ray with tachypnea, moderate neutrophilia with a left shift and has had Staph aureus retrieved from tracheal secretions with the presumption of staphylococcal pneumonia. She is currently receiving Zosyn. The patient is comatose, is unresponsive, does not move extremities. She is in the neuro chair at the moment. Has not had any diarrhea, but she is having some clonic movements in the left upper extremity and an EEG demonstrated focal area of seizure activity. PAST MEDICAL HISTORY: Type 2 diabetes, hyperlipidemia, hypertension, and prior CVA. PAST SURGICAL HISTORY: Negative. SOCIAL HISTORY: Independent and reportedly still work working until the event. ALLERGIES: NONE. HOME MEDICATIONS: 1. Metformin. 2. Pravachol. 3. Losartan. CURRENT MEDICATION LIST: 1. P.r.n. medications. 2. Keppra. 3. Magnesium. 4. Lopressor. 5. Zofran. 6. Protonix. 7. Zosyn. 8. MiraLax. 9. Phenergan. FAMILY HISTORY: Not available. ALLERGIES: NONE. PHYSICAL EXAMINATION: VITAL SIGNS: Temperature max 102 on January 05, BP 130/70, pulse 81, respirations 36, and O2 saturation 98%. SKIN: The patient has no areas of skin breakdown. Colunga catheter in place. G tube and tracheostomy with normal-appearing exit sites. No lymphadenopathy. HEENT: The eyes are conjugate, but I could not test her movements. No nystagmus. Pupils are constricted. Sclerae white. Conjunctivae normal. Oral cavity is quite dry with a number of missing teeth in the upper maxilla. No jugular vein distention. LUNGS: With diminished breath sounds at bases with few crackles. HEART: S1 and S2. Regular rate. No S3 or S4. ABDOMEN: Soft, not distended or tender. No ascites. No bladder distention. NEUROLOGIC: No movements are detected in either of her appendicular structures. No edema. Pulses 1+ in dorsalis pedis. No clonus is noted. Absent reflexes. No cognitive function is noticed at the time of the examination. LABORATORY DATA: White cell count was 7.4, is up to 16.9; hemoglobin 9.9; platelets 286. Creatinine 0.8, sodium 152. The last bilirubin 0.4 and CK is 146, AST 10 , ALT was less than 7, alkaline phosphatase is 57. B-natriuretic peptide 124. Serum total protein 6.9 and albumin is 3.5. Urinalysis was essentially normal. CSF exam was available, was 59, this is from the . IMAGING DATA: Venogram was negative for DVT. Brain CT showed slight improvement in the hemorrhage in the intraparenchymal areas and intraventricular region. Chest x-ray with a left lower lung area of infiltrate. Echocardiogram from the with EF 60% to 65%, diastolic dysfunction and mild valvular changes. Operative note from Dr. Marcano from the admission with placement of right frontal external ventricular drain. Ventricular drain has been removed at the moment. ASSESSMENT: Hypertension, diabetes with intraventricular hemorrhage with an intraparenchymal hemorrhage with no neurological cognitive function identified at the moment with some focal seizure activity, on antiseizure medication, now with worsening neutrophilia, abnormalities on the chest film and the concern for pneumonia. DISCUSSION: 1. Differential diagnosis includes pneumonia due to the usual nosocomial pathogens versus thromboembolism since she cannot be anticoagulated prophylactically to prevent thromboembolism. We will order a CT angio and add MRSA coverge to treatment with linezolid. 2. Continue Zosyn as previously. Depending on the results of the CT angio, then further intervention as needed. Job ID: [id number] [facility]
[2020-01-12] MEDS: Linezolid 600 MG in Premix Bag 1 BAG IVPB SCH (20:41)
[2020-01-13] MEDS: Piperacillin/Tazobactam 4.5 GM in Sodium Chloride 0.9% 100 ML IVPB SCH ×5 (00:42→23:28)
[2020-01-13] MEDS: Acetaminophen 325 MG TAB PO PRN ×2 (06:11→17:28)
[2020-01-13 07:26] LABS: #Basophils 0.1 thou/uL (0.0-0.2); #Eosinphils 0.5 thou/uL (0.0-0.7); #Lymphocytes 1.2 thou/uL (1.20-3.40); #Monocytes 0.7 thou/uL (0.11-0.59); #Neutrophils 8.3 thou/uL (1.40-6.50); %Basophils 0.5 % (0.0-1.0); %Eosinophils 5.1 % (0.0-10.0); %Monocytes 6.8 % (0.0-10.0); %Neutrophils 76.7 % (42.0-75.0); Hemoglobin 9.3 g/dL (12.0-16.0); Mean Corpuscular HGB CONC 32.3 g/dL (32.0-36.0); Mean Corpuscular Hemoglobin 29.3 pg (27.0-31.0); Mean Corpuscular Volume 90.8 fL (78.0-98.0); Mean Platelet Volume 9.2 fL (7.4-10.4); Platelet Count 323 thou/uL (130-400); RBC Distribution Width 14.1 % (11.5-14.5); Red Blood Cell (RBC) Count 3.17 mill/uL (4.20-5.40); White Blood Cell (WBC) Count 10.8 thou/uL (4.8-10.8)
[2020-01-13 07:32] LABS: Anion Gap 13 mmol/L (10-20); BUN (Urea Nitrogen) 20 mg/dL (9.8-20.1); Calc. Creatinine Clearance 84 mL/min (70-130); Carbon Dioxide 21 mmol/L (23-31); Chloride 124 mmol/L (98-107); Estimated GFR-MDRD 89; Glucose 117 mg/dL (83-110); Potassium 3.4 mmol/L (3.5-5.1); Sodium 155 mmol/L (136-145)
--- NOTE | 2020-01-13 07:40 | PRG ---
DATE OF SERVICE: 01/13/2020 I saw Kathe Tyson in the intermediate care unit this morning. Her cultures come back with MRSA growing from her sputum through the tracheostomy. She was started on Zyvox yesterday and has had less than 24 hours of appropriate antibiotic coverage for it so far. The sister reports that she blinks to command for her yesterday, but she could not get her to move her arms and legs very much at all. Among the electronically recorded vital signs, 98.8 degrees Fahrenheit is the highest temperature, although the nursing staff reports 100.2. On examination, Ms. Tyson opens her eyes to stimulus. She very weakly withdraws her hands, but not her legs. She appears exhausted to me from tachypnea and is not participating as much in her examination. White blood cell count and the sodium were not done yet this morning. CSF and cultures have been negative. The sputum culture, as aforementioned, is MRSA positive. Ms. Tyson is less than 24 hours of appropriate antibiotic coverage for her pneumonitis and tracheitis and I think she needs more antibiotic coverage before transfer to LTAC. Her recent CT scan shows continued resolution of blood products, slight increase in the ventricular size, but not a huge amount of that. I have recommended follow up CT scan in 3 to 4 weeks to check for hydrocephalus, not interested in putting a shunt in now in the setting of MRSA positive trach secretions and she seems to be circulating her CSF for the last 5 days reasonably well. Job ID: [id number]
--- NOTE | 2020-01-13 09:02 | PRG ---
DATE OF SERVICE: 01/13/2020 SUBJECTIVE: This morning, the patient has trach collar in place, is still encephalopathic, barely opens her eyes. OBJECTIVE: VITAL SIGNS: Temperature 99, saturations are 100% on trach collar, blood pressure 113/65, and respiratory rate is 18. CHEST: Rhonchi and crackles. CARDIAC: Normal S1 and S2. No gallops. ABDOMEN: No masses. LABORATORY DATA: Sodium is 155. White count 10,000, slight left shift. Sputum is growing MRSA. ASSESSMENT: 1. Methicillin-resistant Staphylococcus aureus bronchopneumonia, on Zyvox. 2. Intracerebral hemorrhage, trach and PEG. 3. History of hypertension. PLAN: Continue present treatment. Eventually placement as per Neurosurgery. Job ID: [id number]
[2020-01-13] MEDS: levETIRAcetam In NaCl (Iso-Os) 1,000 MG in Premix Bag 1 BAG IVPB SCH ×2 (09:07→20:39)
[2020-01-13] MEDS: Sodium Chloride 0.9% 1,000 ML IV SCH ×2 (09:11→23:29)
[2020-01-13] MEDS: Polyethylene Glycol 3350 17 GM Packet PER TUBE SCH (09:14)
[2020-01-13] MEDS: Metoprolol Tartrate 25 MG TAB PO SCH ×2 (09:14→20:42)
[2020-01-13] MEDS: Pantoprazole 40 MG VIAL IVP SCH ×2 (09:14→20:42)
--- NOTE | 2020-01-13 09:37 | PDOC.HOSPP ---
- Subjective Encounter Date: 01/13/20 Encounter Time: 14:30 Subjective: Patient without changes overnight. No more fever. - Objective Vital Signs & Weight: Vital Signs (12 hours) Temp Pulse Ox 01/13/20 07:43 99.3 F 01/13/20 06:33 100 01/13/20 03:32 98.8 F 01/13/20 02:22 96 01/12/20 23:24 98.4 F Weight Admit Weight 193 lb 5.526 oz Weight 180 lb 4.8 oz Most Recent Monitor Data Heart Rate from ECG 75 NIBP 113/65 NIBP BP-Mean 81 Respiration from ECG 40 SpO2 100 I&O: 01/12/20 01/13/20 01/14/20 06:59 06:59 06:59 Intake Total 5930 5190 Output Total 2200 2950 Balance 3730 2240 Result Diagrams: 01/13/20 07:00 01/13/20 07:00 Additional Labs: Accuchecks 01/12/20 12:18 POC Glucose 111 H Hospitalist ROS - Review of Systems ROS unobtainable: due to mental status - Medication Medications: Active Medications Generic Name Dose Route Start Last Admin Trade Name Freq PRN Reason Stop Dose Admin Acetaminophen 650 mg 12/31/19 14:48 01/13/20 06:11 Tylenol PO 650 mg Q4H PRN Administration Headache/Fever Or Mild Pain Docusate Sodium 100 mg 12/31/19 14:48 01/04/20 16:22 Colace PO 100 mg BIDPRN PRN Administration Constipation Hydralazine HCl 5 mg 12/31/19 14:48 01/04/20 22:04 Apresoline SLOW IVP 5 mg Q15MIN PRN Administration SBP > 160 mmHg Hydralazine HCl 10 mg 12/31/19 15:33 01/09/20 12:09 Apresoline SLOW IVP 10 mg Q4H PRN Administration SBP > 140 and HR < 70 Potassium Chloride 40 meq/ 100 mls @ 50 mls/hr 01/01/20 07:41 01/02/20 04:34 Device IVPB 100 mls ASDIR PRN Administration FOR SERUM K+ 2.5 - 3.5 Levetiracetam 1,000 mg/ Device 100 mls @ 200 mls/hr 01/10/20 09:00 01/13/20 09:07 IVPB 100 mls BID LALITA Administration Piperacillin Sod/Tazobactam 100 mls @ 200 mls/hr 01/11/20 12:00 01/13/20 06: 11 Sod 4.5 gm/ Sodium Chloride IVPB 100 mls Q6HR LALITA Administration Sodium Chloride 1,000 mls @ 75 mls/hr 01/12/20 08:00 01/13/20 09:11 Normal Saline 0.9% IV 1,000 mls .[id number] LALITA Administration Linezolid 600 mg/ Device 300 mls @ 150 mls/hr 01/12/20 21:00 01/12/20 20:41 IVPB 300 mls Q12HR LALITA Administration Labetalol HCl 10 mg 12/31/19 14:48 01/10/20 03:29 Normodyne SLOW IVP 10 mg Q15MIN PRN Administration SBP > 140 mmHg Metoprolol Tartrate 25 mg 01/10/20 09:00 01/13/20 09:14 Lopressor PO 25 mg BID LALITA Administration Pantoprazole Sodium 40 mg 12/31/19 21:00 01/13/20 09:14 Protonix IVP 40 mg Q12HR LALITA Administration Polyethylene Glycol 17 gm 01/06/20 09:00 01/13/20 09:14 Miralax PER TUBE Not Given DAILY LALITA Potassium Chloride 40 meq 01/01/20 07:41 01/13/20 09:14 Klor-Con PER TUBE 40 meq ASDIR PRN Administration FOR SERUM K+ 2.5-3.5 Sodium Chloride 10 ml 12/31/19 14:48 01/11/20 20:24 Flush - Normal Saline IVF 10 ml PRN PRN Administration Saline Flush - Exam General - other findings: unresponsive Heart: RRR, no murmur, no gallops, no rubs Respiratory: CTAB, no wheezes, no rales, no ronchi Respiratory - other findings: trach in place Gastrointestinal: soft, non-tender, non-distended, normal bowel sounds Gastrointestinal - other findings: PEG in place Psychiatric - other findings: unresponsive Hosp A/P (1) ICH (intracerebral hemorrhage) Code(s): I61.9 - NONTRAUMATIC INTRACEREBRAL HEMORRHAGE, UNSPECIFIED Status: Acute (2) Seizure Code(s): R56.9 - UNSPECIFIED CONVULSIONS Status: Acute (3) Diabetes mellitus type 2 in nonobese Code(s): E11.9 - TYPE 2 DIABETES MELLITUS WITHOUT COMPLICATIONS Status: Chronic (4) Hypertension Code(s): I10 - ESSENTIAL (PRIMARY) HYPERTENSION Status: Chronic (5) Anemia Code(s): D64.9 - ANEMIA, UNSPECIFIED Status: Chronic (6) Respiratory failure with hypoxia and hypercapnia Code(s): J96.91 - RESPIRATORY FAILURE, UNSPECIFIED WITH HYPOXIA; J96.92 - RESPIRATORY FAILURE, UNSPECIFIED WITH HYPERCAPNIA Status: Acute (7) Dysphagia Code(s): R13.10 - DYSPHAGIA, UNSPECIFIED Status: Acute (8) Sepsis Code(s): A41.9 - SEPSIS, UNSPECIFIED ORGANISM Status: Acute (9) Pneumonia Code(s): J18.9 - PNEUMONIA, UNSPECIFIED ORGANISM Status: Acute Plan: MRSA - Plan #intracranial hemorrhage with surrounding edema #interventricular hemorrhage -CT head stable 01/11 - per nuerosurgery, goal Na around 155 for permissive hyperosmolarity #MRSA pneumonia -fever improving, on Zyvox since yesterday S/P Trach and PEG Plan: -US neg for DVT -on zosyn and Linezolid since 01/12/2020, Bashir consulted -NS IV to keep Na around 155 -needs at least one more day of abx prior to LTAC per neurosurg -CT chest showing pneumonia
[2020-01-13] MEDS: Linezolid 600 MG in Premix Bag 1 BAG IVPB SCH ×2 (09:45→20:46)
[2020-01-14] MEDS: Acetaminophen 325 MG TAB PO PRN ×2 (03:26→20:04)
[2020-01-14 04:06] LABS: Anion Gap 13 mmol/L (10-20); BUN (Urea Nitrogen) 17 mg/dL (9.8-20.1); Calc. Creatinine Clearance 85 mL/min (70-130); Calcium 8.9 mg/dL (7.8-10.44); Carbon Dioxide 23 mmol/L (23-31); Chloride 123 mmol/L (98-107); Estimated GFR-MDRD 90; Glucose 109 mg/dL (83-110); Potassium 3.6 mmol/L (3.5-5.1); Sodium 155 mmol/L (136-145)
[2020-01-14] MEDS: Piperacillin/Tazobactam 4.5 GM in Sodium Chloride 0.9% 100 ML IVPB SCH ×4 (05:39→23:40)
--- NOTE | 2020-01-14 07:00 | PRG ---
DATE OF SERVICE: 01/14/2020 I saw Kathe Tyson in our intermediate care unit this morning. Her daughter was at bedside. No events were reported overnight. Among the electronically recorded vital signs, I see 99.9 is the highest temperature. Blood pressures have been in the 90s to 120s. On examination to stimulus, Ms. Tyson opens her eyes. She looks around the room. Her daughter reports yesterday. She was mouthing words and blinking to command. She has not seen much in the way of extremity motion. With enough stimulus, I get a little bit of withdrawal from the left greater than right upper extremity, not much other than triple flexion in the legs. White blood cell count started trending down yesterday. The sodium is to 155. Ms. Tyson has had 36 hours of appropriate antibiotic treatment for her resistant organism from her tracheal cultures. She is breathing easier and has fewer secretions. Her upper airway sounds are diminished. She is a bit more alert, but her extremity motion is not back to what it was earlier the last week. Keep her on Keppra for at least until the next CAT scan 3 weeks from now shows resolution of blood products in the brain. I have examined that CAT scan closely for any hydrocephalus prompting shunting. For transfer to the LTAC, we will make sure that they have the antibiotic treatment that she needs and physical therapy that can visit daily. We will start a prophylactic dose of low-molecular weight heparin today to prevent DVT with 40 mg once daily. We will get a CT scan in the morning to make sure that this regimen has not increased any bleeding and if she is clinically stable by tomorrow, she can be transferred then. Job ID: [id number]
--- NOTE | 2020-01-14 09:05 | PRG ---
DATE OF SERVICE: 01/14/2020 SUBJECTIVE: This morning, the patient is slightly more responsive, opens eyes. OBJECTIVE: VITAL SIGNS: Temperature 97, saturations 98% on trach collar, blood pressure 141/82, respiratory rate 18. CHEST: No wheezing or crackles. CARDIAC: Normal S1 and S2. No gallops. ABDOMEN: No masses. ASSESSMENT AND PLAN: Tracheobronchitis, possibly early pneumonia; methicillin-resistant Staphylococcus aureus. She could very well be switched over to p.o. Zyvox. PT and supportive care. Placement any time. Job ID: [id number]
[2020-01-14] MEDS: levETIRAcetam In NaCl (Iso-Os) 1,000 MG in Premix Bag 1 BAG IVPB SCH ×2 (09:18→19:59)
[2020-01-14] MEDS: Linezolid 600 MG in Premix Bag 1 BAG IVPB SCH ×2 (09:27→21:30)
[2020-01-14] MEDS: Enoxaparin Sodium 40 MG/0.4 ML SYRINGE SC SCH (09:28)
[2020-01-14] MEDS: Pantoprazole 40 MG VIAL IVP SCH ×2 (09:28→20:05)
[2020-01-14] MEDS: Metoprolol Tartrate 25 MG TAB PO SCH ×2 (09:28→20:04)
[2020-01-14] MEDS: Polyethylene Glycol 3350 17 GM Packet PER TUBE SCH (09:29)
--- NOTE | 2020-01-14 10:28 | PDOC.HOSPP ---
- Subjective Encounter Date: 01/14/20 Encounter Time: 10:20 Subjective: Patient remains minimally responsive and non-verbal, breathing easier, no fevers - Objective Vital Signs & Weight: Vital Signs (12 hours) Temp Pulse Ox 01/14/20 07:49 98 01/14/20 07:43 97.9 F 01/14/20 03:24 99.9 F H 01/13/20 23:29 97.9 F Weight Admit Weight 193 lb 5.526 oz Weight 184 lb 3.2 oz Most Recent Monitor Data Heart Rate from ECG 71 NIBP 141/81 NIBP BP-Mean 101 Respiration from ECG 30 SpO2 98 I&O: 01/13/20 01/14/20 01/15/20 06:59 06:59 06:59 Intake Total 5190 4908 Output Total 2950 2200 Balance 2240 2708 Result Diagrams: 01/13/20 07:00 01/14/20 03:17 Hospitalist ROS - Review of Systems ROS unobtainable: due to mental status - Medication Medications: Active Medications Generic Name Dose Route Start Last Admin Trade Name Freq PRN Reason Stop Dose Admin Acetaminophen 650 mg 12/31/19 14:48 01/14/20 03:26 Tylenol PO 650 mg Q4H PRN Administration Headache/Fever Or Mild Pain Docusate Sodium 100 mg 12/31/19 14:48 01/04/20 16:22 Colace PO 100 mg BIDPRN PRN Administration Constipation Enoxaparin Sodium 40 mg 01/14/20 09:00 01/14/20 09:28 Lovenox SC 40 mg 0900 LALITA Administration Hydralazine HCl 5 mg 12/31/19 14:48 01/04/20 22:04 Apresoline SLOW IVP 5 mg Q15MIN PRN Administration SBP > 160 mmHg Hydralazine HCl 10 mg 12/31/19 15:33 01/09/20 12:09 Apresoline SLOW IVP 10 mg Q4H PRN Administration SBP > 140 and HR < 70 Potassium Chloride 40 meq/ 100 mls @ 50 mls/hr 01/01/20 07:41 01/02/20 04:34 Device IVPB 100 mls ASDIR PRN Administration FOR SERUM K+ 2.5 - 3.5 Levetiracetam 1,000 mg/ Device 100 mls @ 200 mls/hr 01/10/20 09:00 01/14/20 09:18 IVPB 100 mls BID LALITA Administration Piperacillin Sod/Tazobactam 100 mls @ 200 mls/hr 01/11/20 12:00 01/14/20 05: 39 Sod 4.5 gm/ Sodium Chloride IVPB 100 mls Q6HR LALITA Administration Sodium Chloride 1,000 mls @ 75 mls/hr 01/12/20 08:00 01/13/20 23:29 Normal Saline 0.9% IV 1,000 mls .[id number] LALITA Administration Linezolid 600 mg/ Device 300 mls @ 150 mls/hr 01/12/20 21:00 01/14/20 09:27 IVPB 300 mls Q12HR LALITA Administration Labetalol HCl 10 mg 12/31/19 14:48 01/10/20 03:29 Normodyne SLOW IVP 10 mg Q15MIN PRN Administration SBP > 140 mmHg Metoprolol Tartrate 25 mg 01/10/20 09:00 01/14/20 09:28 Lopressor PO 25 mg BID LALITA Administration Pantoprazole Sodium 40 mg 12/31/19 21:00 01/14/20 09:28 Protonix IVP 40 mg Q12HR LALITA Administration Polyethylene Glycol 17 gm 01/06/20 09:00 01/14/20 09:29 Miralax PER TUBE Not Given DAILY [facility] Potassium Chloride 40 meq 01/01/20 07:41 01/13/20 09:14 Klor-Con PER TUBE 40 meq ASDIR PRN Administration FOR SERUM K+ 2.5-3.5 Sodium Chloride 10 ml 12/31/19 14:48 01/14/20 09:29 Flush - Normal Saline IVF 10 ml PRN PRN Administration Saline Flush - Exam General - other findings: sitting up in neuro chair, not responding ENT - other findings: trach in place Heart: RRR, no murmur, no gallops, no rubs Respiratory: no wheezes, no rales, no ronchi, no tachypnea Respiratory - other findings: decent air movement Gastrointestinal: soft, non-tender, non-distended, normal bowel sounds Gastrointestinal - other findings: PEG in place Psychiatric - other findings: non-responsive to me this AM Hosp A/P (1) ICH (intracerebral hemorrhage) Code(s): I61.9 - NONTRAUMATIC INTRACEREBRAL HEMORRHAGE, UNSPECIFIED Status: Acute (2) Seizure Code(s): R56.9 - UNSPECIFIED CONVULSIONS Status: Acute (3) Diabetes mellitus type 2 in nonobese Code(s): E11.9 - TYPE 2 DIABETES MELLITUS WITHOUT COMPLICATIONS Status: Chronic (4) Hypertension Code(s): I10 - ESSENTIAL (PRIMARY) HYPERTENSION Status: Chronic (5) Anemia Code(s): D64.9 - ANEMIA, UNSPECIFIED Status: Chronic (6) Respiratory failure with hypoxia and hypercapnia Code(s): J96.91 - RESPIRATORY FAILURE, UNSPECIFIED WITH HYPOXIA; J96.92 - RESPIRATORY FAILURE, UNSPECIFIED WITH HYPERCAPNIA Status: Acute (7) Dysphagia Code(s): R13.10 - DYSPHAGIA, UNSPECIFIED Status: Acute (8) Sepsis Code(s): A41.9 - SEPSIS, UNSPECIFIED ORGANISM Status: Acute (9) Pneumonia Code(s): J18.9 - PNEUMONIA, UNSPECIFIED ORGANISM Status: Acute - Plan #intracranial hemorrhage with surrounding edema #interventricular hemorrhage -CT head stable 01/11 - per neurosurgery, goal Na around 155 for permissive hyperosmolarity - Keppra until repeat CT in a few weeks #MRSA pneumonia -fever improving, on Zyvox since yesterday S/P Trach and PEG Plan: -US neg for DVT, starting Lovenox per NSurg -on zosyn and Linezolid since 01/12/2020, Bashir consulted -NS IV to keep Na around 155 -CT chest showing pneumonia -Repeat CT brain tomorrow and if stable can likely go to LTAC then per neurosurgery plan
[2020-01-14] MEDS: Sodium Chloride 0.9% 1,000 ML IV SCH (12:43)
[2020-01-14] MEDS: Loperamide HCl 2 MG CAP PER TUBE PRN (20:04)
[2020-01-15] MEDS: Sodium Chloride 0.9% 1,000 ML IV SCH ×2 (02:56→11:24)
[2020-01-15] MEDS: Labetalol HCl 100 MG/20 ML VIAL SLOW IVP PRN (05:29)
[2020-01-15] MEDS: Piperacillin/Tazobactam 4.5 GM in Sodium Chloride 0.9% 100 ML IVPB SCH ×2 (05:32→11:22)
--- NOTE | 2020-01-15 07:19 | PRG ---
DATE OF SERVICE: 01/15/2020 I saw Kathe Tyson in our Intermediate Care Unit room this morning. Her family members at the bedside. Ms. Tyson had a relatively uneventful day yesterday. She is up in a chair. She has now been on appropriate antibiotic coverage for about 60 hours. Overnight, T-max was 99.7. Remainder of her vitals is stable. On examination, Ms. Tyson opens her eyes to stimulus. She moves her mouth. It is hard for me to tell if she is trying to mouth words. Her extremities are not moving very briskly. The left withdraws more avidly than the right upper extremity. There is triple flexion. CT examination of brain was performed this morning. The intracerebral portion of the hemorrhage has markedly improved. The intraventricular portion is as well. There are some residual blood products. The ventricular system is dilated compared to when the EVD was in place. Given Ms. Tyson's MRSA tracheitis, tracheobronchitis/pneumonia, I am hesitant to put a ventriculoperitoneal shunt in place currently. Hopefully, we can get her to an LTAC facility for couple of weeks to have more antibiotic coverage, clear the infection, and get a followup CT scan. If that CT scan shows continued dilation of the ventricular system then [employer] shunt placement would be safer than it is now. This also give her time for any inflammation around the arachnoid granulations to recover and perhaps circulate fluid on her own rather than with an implanted device. Kathe Tyson is ready for transfer today. Job ID: [id number] MTDD
--- NOTE | 2020-01-15 08:13 | CT ---
CT OF THE BRAIN WITHOUT CONTRAST: INDICATION: A 74-year-old woman with intracranial hemorrhage. COMPARISON: Prior exam dated 01/11/2020. FINDINGS: The intraparenchymal hemorrhage centered within the left basil ganglia is slightly less pronounced th an on the prior examination. The collection today measures 1.9 cm where it previously measured 2.5 c m. The degree of intraventricular hemorrhage appears slightly less pronounced. Layered hemorrhage i s seen within the atrium as well as the anterior horns of both lateral ventricles. Ventriculostomy t ract involving the right frontal region is similar-appearing. Chronic small-vessel white matter isch emic change is similar-appearing. No apparent midline shift is evident. Basilar cisterns are patent . The skull and extracranial soft tissues appear within normal limits. IMPRESSION: 1. Decreasing size of the intraparenchymal hemorrhage centered within the left basal ganglia with sl ightly diminishing surrounding mass effect. 2. Intraventricular hemorrhage appears slightly less pronounced with stable mild prominence of the l ateral ventricles and third ventricle. POS: NASRIN
--- NOTE | 2020-01-15 08:50 | PRG ---
DATE OF SERVICE: 01/15/2020 SUBJECTIVE: This morning, the patient is in the MICU. Trach in place. PEG in place. OBJECTIVE: VITAL SIGNS: Maximum temperature 98.9. Blood pressure 154/86. Respiratory rate 16. Saturations are 100% on trach collar. GENERAL: Appears to be in no distress. CHEST: Minimal rhonchi. CARDIAC: Normal S1 and S2. No gallops. ABDOMEN: No masses. ASSESSMENT AND PLAN: Status post thalamic bleed, intracerebral hemorrhage, ventricular hemorrhage, respiratory failure, hypertension, methicillin-resistant Staphylococcus aureus, tracheobronchitis, possibly pneumonia. The patient appears to have improved, and I suggest switching over to oral medication. Eventually, placement. Pulmonary will follow while in the MICU. Job ID: [id number]
[2020-01-15] MEDS: levETIRAcetam In NaCl (Iso-Os) 1,000 MG in Premix Bag 1 BAG IVPB SCH (11:00)
[2020-01-15] MEDS: Enoxaparin Sodium 40 MG/0.4 ML SYRINGE SC SCH (11:05)
[2020-01-15] MEDS: Loperamide HCl 2 MG CAP PER TUBE PRN (11:05)
[2020-01-15] MEDS: Metoprolol Tartrate 25 MG TAB PO SCH (11:05)
[2020-01-15] MEDS: Pantoprazole 40 MG VIAL IVP SCH (11:06)
[2020-01-15] MEDS: Polyethylene Glycol 3350 17 GM Packet PER TUBE SCH (11:07)
[2020-01-15] MEDS: Linezolid 600 MG in Premix Bag 1 BAG IVPB SCH (12:31)
[2020-01-15 13:09] VITALS: BMI 31.1
--- NOTE | 2020-01-15 13:56 | PRG ---
DATE OF SERVICE: 01/15/2020 SUBJECTIVE: The patient is unresponsive. No diarrhea reported. OBJECTIVE: VITAL SIGNS: T-max 99.7 yesterday, currently 98.9, blood pressure 150/75, pulse 60, O2 saturation 96. SKIN: G-tube with normal-appearing exit site, peripheral IV access, and indwelling Colunga catheter. HEENT: The pupils are constricted. No eye movements are identified. No nystagmus. Sclerae white. LUNGS: Symmetric air entry. HEART: S1 and S2. Regular rate. ABDOMEN: Soft, not distended. LABORATORY DATA: White cell count 10.8, hemoglobin 9.3, and platelets 323. Creatinine 0.76. Microbiology with the same findings as before. C diff antigen and toxin negative from yesterday. Brain CT from today with a decreasing size of intraparenchymal hemorrhage, centered within the left basal ganglia, lesser mass effect, intraventricular hemorrhage slightly less pronounced. ASSESSMENT AND DISCUSSION: Hypertension, diabetes with intraventricular hemorrhage and intraparenchymal hemorrhage, severe neurological impairment, some focal seizure activity, and superimposed pneumonia with possibility of MRSA infection. The patient is currently on linezolid and Zosyn. I believe upon transfer to the unit, those can be continued for another 5 or 7 days and then discontinued. Job ID: [id number]
[2020-01-15] MEDS: hydrALAZINE 20 MG/ML VIAL SLOW IVP PRN (14:20)
[2020-01-15 14:21] VITALS: BP 152/70
[2020-01-15 15:41] VITALS: TEMP 98.8
--- NOTE | 2020-01-16 00:17 | DIS ---
DATE OF ADMISSION: 12/31/2019 DATE OF DISCHARGE: 01/15/2020 DISCHARGE DIAGNOSES: 1. Intracranial hemorrhage. 2. Seizure. 3. Type 2 diabetes mellitus. 4. Hypertension. 5. Anemia. 6. Respiratory failure with hypoxia and hypercapnia, dysphagia, sepsis and pneumonia. Intracranial hemorrhage with surrounding edema. 7. Intraventricular hemorrhage. DISCHARGE MEDICATIONS: 1. Lovenox 40 mg subcu daily. 2. Lopressor 25 mg twice a day. 3. Pravastatin 40 mg daily. 4. Zosyn 4.5 g q.6 hours next two weeks. 5. Metformin 500 mg daily. 6. Guaifenesin 600 mg twice a day. 7. Keppra 1000 mg twice daily. 8. Losartan 25 mg daily. 9. Linezolid 600 mg twice a day. HOSPITAL COURSE: Please see the H and P and daily progress note for more details. Briefly, 74-year-old female admitted with intracranial hemorrhage. Neurosurgery followed her as repeat CT head was stable. Sodium goal of 155 for permissive hyperosmolality as recommended by the Neurosurgery. She will continue with Keppra 1000 mg twice a day until repeat CT in a few weeks. The patient also had MRSA pneumonia for which is Zyvox is given. She has also had respiratory failure and to cover for gram-negative rods, she is also started on Zosyn on . FAMILIA Richardson followed with us. The plan is to continue the IV antibiotics for 2 more weeks while she is undergoing therapy at LT. The patient had a status post trach and PEG. The plan is to continue the Keppra for 3 more weeks and repeat CT in 3 weeks from now to see the resolution of blood products in the brain. The repeat CT today examined by the Neurosurgery for any hydrocephalus that required shunting. For now, she will be transferred to LT to continue antibiotic treatment as well as physical therapy. Started on prophylactic dose of low molecular weight Lovenox 40 mg once daily and there will be periodic CT scan to be followed by the Neurosurgery while she is going through rehab at the LT. Neurosurgery cleared her for discharge. DISCHARGE INSTRUCTIONS: 1. Activity with supervision of physical therapy. 2. Diet through PEG tube. 3. Follow up with Neurosurgery as well as Infectious Disease while she is undergoing rehab at LT. TIME SPENT: Discharge time took over 30 minutes. Job ID: [id number] [facility]ITAL[facility]armella
--- NOTE | 2020-01-18 13:44 | OP ---
DATE OF PROCEDURE: 01/07/2020 PREOPERATIVE DIAGNOSES: 1. Respiratory failure. 2. Protein-calorie malnutrition. POSTOPERATIVE DIAGNOSES: 1. Respiratory failure. 2. Protein-calorie malnutrition. PROCEDURES PERFORMED: 1. Tracheostomy 8 CORRECTIONAL SUPERVISING COOK. 2. Percutaneous endoscopic gastrostomy tube after esophagogastroduodenoscopy. ANESTHESIA: General. COMPLICATIONS: None. SPECIMEN: None. FINDINGS: None. DESCRIPTION OF PROCEDURE: The patient was taken to the operating room and laid supine on the operating room table. After general anesthetic was obtained, an axillary roll was placed. Her neck was flexed back and her neck was prepped and draped in a sterile fashion. Low collar incision was made and cautery was used to dissect through the strap muscles in the midline exposing the trachea. The thyroid was split to expose the trachea using cautery. 2-0 Prolene placed on each side of the second tracheal ring. Anterior box of the second tracheal ring was removed. As the ET tube was withdrawn, 8 CORRECTIONAL SUPERVISING COOK tracheostomy tube with the inner cannula removed and the obturator placed. This was placed into the trachea. The balloon was inflated without leak. The inner cannula was replaced. There was good CO2 return and bilateral chest wall excursion and good breath sounds present. The Velcro trach ties were used to affix it around the trachea to the neck. Nylon suture was used to suture the collar of the trachea to the neck. A small piece of Surgicel was left on each side of the trachea in the open wound. There was no ongoing bleeding. Next, the upper abdomen was prepped and draped in a sterile fashion. EGD scope was passed through esophagus and stomach to the level of the duodenum without obstruction or pathology, withdrawn into the mid stomach, pushing left subcostal, you can see this reproduce through on the EGD site. There was good transillumination of the light through the abdominal wall. Skin wheal was raised. A 1 cm incision was made in the left upper abdomen as the introducer needle was placed in the stomach. A wire was passed. This was snared from the scope, brought out through the mouth, connected to the PEG. The PEG was then brought through the oropharynx, esophagus, and out the small stomach opening to a distance of 3 cm. The PEG was affixed to the abdomen using the enclosed bumper. The [employer] tree adapter and clamp were placed. Antibiotic ointment placed at the exit site. The patient was en route to the ICU in stable condition. All needle counts, instrument counts, and lap counts were correct. Job ID: [id number]
== END 2020-01-15 15:38 | DRG 3 ==
LOC: ERS 10:38 → CCU 10:54 → IMCU/EMU 01-10 14:51
PROVIDERS: ADMIT Internal Medicine; ATTEND Emergency Medicine
PROC: 009630Z Drainage of Cerebral Ventricle with Drainage Device, Percutaneous Approach (ICD-10-PCS; principal; 2019-12-31)
PROC: 02H633Z Insertion of Infusion Device into Right Atrium, Percutaneous Approach (ICD-10-PCS; 2019-12-31)
PROC: 5A1955Z Respiratory Ventilation, Greater than 96 Consecutive Hours (ICD-10-PCS; 2019-12-31)
PROC: 3E02340 Introduction of Influenza Vaccine into Muscle, Percutaneous Approach (ICD-10-PCS; 2020-01-01)
PROC: 3E0234Z Introduction of Serum, Toxoid and Vaccine into Muscle, Percutaneous Approach (ICD-10-PCS; 2020-01-01)
PROC: 3E033XZ Introduction of Vasopressor into Peripheral Vein, Percutaneous Approach (ICD-10-PCS; 2020-01-07)
PROC: 0B113F4 Bypass Trachea to Cutaneous with Tracheostomy Device, Percutaneous Approach (ICD-10-PCS; 2020-01-07)
PROC: 0DH63UZ Insertion of Feeding Device into Stomach, Percutaneous Approach (ICD-10-PCS; 2020-01-07)
DX: I61.5 Nontraumatic intracerebral hemorrhage, intraventricular (principal); E43 Unspecified severe protein-calorie malnutrition; A41.9 Sepsis, unspecified organism; G93.6 Cerebral edema; J96.21 Acute and chronic respiratory failure with hypoxia; J96.22 Acute and chronic respiratory failure with hypercapnia; J69.0 Pneumonitis due to inhalation of food and vomit; J15.212 Pneumonia due to Methicillin resistant Staphylococcus aureus; G91.9 Hydrocephalus, unspecified; I16.9 Hypertensive crisis, unspecified; G81.91 Hemiplegia, unspecified affecting right dominant side; E87.0 Hyperosmolality and hypernatremia; G93.40 Encephalopathy, unspecified; I47.1 Supraventricular tachycardia; Z23 Encounter for immunization; E11.9 Type 2 diabetes mellitus without complications; E78.5 Hyperlipidemia, unspecified; E78.00 Pure hypercholesterolemia, unspecified; I10 Essential (primary) hypertension; D64.9 Anemia, unspecified; E87.6 Hypokalemia; I60.9 Nontraumatic subarachnoid hemorrhage, unspecified; Z86.73 Personal history of transient ischemic attack (TIA), and cerebral infarction without residual deficits; Z79.84 Long term (current) use of oral hypoglycemic drugs; Z79.899 Other long term (current) drug therapy; Z90.710 Acquired absence of both cervix and uterus; Z79.82 Long term (current) use of aspirin; Z68.31 Body mass index [BMI] 31.0-31.9, adult; E87.8 Other disorders of electrolyte and fluid balance, not elsewhere classified; R56.9 Unspecified convulsions
CPT/HCPCS: 36415; 36416; 36556; 51702; 70450; 70496; 71045; 71275; 80048; 80053; 81001; 82550; 82805; 83605; 83735; 83880; 84157; 85025; 85027; 85610; 85730; 87040; 87070; 87077; 87186; 87205; 87324; 87449; 93005; 93306; 93970; 94002; 94003; 94640; 95816; 95819; 96361; 96374; 96375; 99292; C9113; J0171; J0360; J0461; J0690; J1650; J1953; J2001; J2020; J2270; J2543; J2704; J3010; J3480; J3490; P9045; Q9967; S0020

== ENCOUNTER 2020-02-12 19:19 | Inpatient (IN) | payer MEDICARE ==
[~2020-02-12 19:19] MED LIST: Heparin 1,000 UNITS/ML VIAL ONE
[2020-02-12] MEDS ORDERED: Sodium Chloride 0.9% 1,000 ML IV SCH ×2 (23:00→23:30)
[2020-02-12] MEDS ORDERED: Dextrose 5% in Water 1,000 ML IV PRN (23:19)
[2020-02-12] MEDS ORDERED: Dextrose 50% Abboject 50 ML SYRINGE SLOW IVP PRN (23:19)
[2020-02-12] MEDS ORDERED: HumaLOG 300 UNITS/3 ML VIAL SC PRN (23:19)
--- NOTE | 2020-02-13 00:24 | HP ---
CHIEF COMPLAINT: Transferred to this facility with concern for possible pneumonia versus urinary tract infection. This patient initially presented to the [facility] where she apparently developed fever, reporting increased sputum production and fever. The patient had actually been admitted here previously in December; at which time, she had a hemorrhagic stroke. She had a prolonged hospitalization here, requiring ventricular drain 2 weeks after that, the patient had no significant improvement of her neurological function, had a trach and PEG tube placed. She does have a history of pneumonia with MRSA from a respiratory culture on January 11, the patient had just been discharged to the nursing facility apparently a few days ago and has had some increased sputum production and fever with some reported tachypnea. Unfortunately, the patient is unable to give any additional history. PAST MEDICAL HISTORY: Obtained from the patient's record, notable for the above-mentioned hemorrhagic stroke. The patient subsequently did require trach and PEG tube placement. She has a history of seizures, type 2 diabetes, hypertension, anemia, respiratory failure, dysphagia, sepsis with MRSA pneumonia. PAST SURGICAL HISTORY: Above-mentioned intraventricular drain, PEG tube, and trach placement. It is possible she had a hysterectomy remotely as well. FAMILY HISTORY: Unobtainable. SOCIAL HISTORY: Unobtainable. ALLERGIES: IODINE AND SHELLFISH. CURRENT MEDICATIONS: Based on the list from the emergency department; 1. Keppra 500 mg b.i.d. 2. Metoprolol 25 mg b.i.d. 3. Protonix 40 mg daily. 4. MiraLAX 17 g daily. 5. Cozaar 25 mg daily. 6. Metformin 500 mg daily. 7. Motrin p.r.n. 8. Lipitor 10 mg daily. 9. DuoNebs p.r.n. 10. Glucerna for PEG feeds. 11. Humalog, regimen not known. PHYSICAL EXAMINATION: VITAL SIGNS: Most recent vital signs; blood pressure 108/78, pulse 80, respirations 25, and O2 saturation 99% on 4 L trach collar. I do not see any documented temperatures through either a ER visit. GENERAL APPEARANCE: Age-appropriate female. She is nonverbal. She tends to blink, but stare, generally straight forward. She does not make eye contact or track. Pupils are reactive. She has no apparent OP lesions. Trach is in place with trach collar appears to be generally healthy. HEART: Regular rate and rhythm without murmurs, gallops, or rubs. LUNGS: Generally clear, although she is not capable of following commands to take deeper breaths. ABDOMEN: Soft, nontender, and nondistended with positive bowel sounds. No masses. No organomegay. LUQ PEG has a little bit of clear fluid around the skin surface. EXTREMITIES: No significant cyanosis, clubbing, or edema. LABORATORY DATA: White count 13.3, hemoglobin 9.6, 79% neutrophils, and 11% lymphocytes. Sodium 151, potassium 4.1, chloride 113, BUN 28, creatinine 0.64, CO2 is 26, glucose 111, lactic acid 0.9, magnesium 2.6, AST 30, ALT 34, albumin 3.0. Urinalysis shows moderate blood, large leukocyte esterase, 4 to 6 red cells, 11 to 20 white cells, 1+ bacteria. Flu screen negative. Chest x-ray, prominence of the bronchovascular markings likely attributable to shallow depth of inspiration and portable technique. Suboptimal evaluation of the retrocardiac region or atelectasis of the left lung cannot be excluded. IMPRESSION AND PLAN: 1. Sepsis, however, that is based on reported fever that I cannot confirm here in our emergency department or [facility]. Most likely, source would appear to be respiratory or urinary tract infection. 2. Possible pneumonia. Certainly, the patient is at high risk for aspiration. We will cover with vancomycin, cefepime, and Levaquin. Given the fact she has been in multiple facilities, has a history of methicillin-resistant Staphylococcus aureus infection and could possibly have some aspiration. 3. Possible urinary tract infection. Follow up cultures and should be covered with the broad-spectrum antibiotics. 4. History of hemorrhagic cerebrovascular accident with persistent GCS around 3 to 4 with trach and PEG. 5. Diabetes mellitus. We will continue Accu-Cheks and sliding scale. 6. Hypertension. Continue with her usual home regimen of losartan and metoprolol. 7. History of seizure disorder. We will continue with the Keppra dosing. Job ID: [id number] [facility]
[2020-02-13] MEDS: Cefepime 1 GM in Sodium Chloride 0.9% 100 ML IVPB SCH ×2 (05:05→17:16)
[2020-02-13 06:00] LABS: #Basophils 0.1 thou/uL (0.0-0.2); #Eosinphils 0.4 thou/uL (0.0-0.7); #Lymphocytes 1.3 thou/uL (1.20-3.40); #Monocytes 0.8 thou/uL (0.11-0.59); #Neutrophils 8.6 thou/uL (1.40-6.50); %Basophils 0.5 % (0.0-1.0); %Lymphocytes 11.4 % (21.0-51.0); %Monocytes 7.2 % (0.0-10.0); %Neutrophils 76.9 % (42.0-75.0); Hemoglobin 8.4 g/dL (12.0-16.0); Mean Corpuscular HGB CONC 32.5 g/dL (32.0-36.0); Mean Corpuscular Hemoglobin 28.2 pg (27.0-31.0); Mean Corpuscular Volume 86.7 fL (78.0-98.0); Mean Platelet Volume 9.5 fL (7.4-10.4); Platelet Count 253 thou/uL (130-400); RBC Distribution Width 15.5 % (11.5-14.5); Red Blood Cell (RBC) Count 2.98 mill/uL (4.20-5.40); White Blood Cell (WBC) Count 11.2 thou/uL (4.8-10.8)
[2020-02-13 06:05] LABS: Anion Gap 12 mmol/L (10-20); BUN (Urea Nitrogen) 19 mg/dL (9.8-20.1); Calc. Creatinine Clearance 124 mL/min (70-130); Calcium 8.8 mg/dL (7.8-10.44); Carbon Dioxide 23 mmol/L (23-31); Chloride 120 mmol/L (98-107); Estimated GFR-MDRD Greater than 90; Glucose 89 mg/dL (83-110); Potassium 3.7 mmol/L (3.5-5.1); Sodium 151 mmol/L (136-145)
[2020-02-13] MEDS: Vancomycin HCl 1.25 GM in Sodium Chloride 0.9% 250 ML 250 ML IVPB SCH ×2 (08:20→20:46)
[2020-02-13] MEDS: levETIRAcetam 500 MG TAB PER TUBE SCH ×2 (08:20→20:46)
[2020-02-13] MEDS: Enoxaparin Sodium 40 MG/0.4 ML SYRINGE SC SCH (08:20)
[2020-02-13] MEDS: Sodium Chloride 0.9% 1,000 ML IV SCH (09:05)
[2020-02-13 12:01] LABS: Bacteria/HPF 4+ HPF (None Seen); Bilirubin Negative (Negative); Blood, Urine 1+ (Negative); Clarity Extra Turbid (Clear); Glucose, Urine (Dipstick) Normal (Negative); Leukocyte 500 Leu/uL (Negative); Nitrite Negative (Negative); Protein, Urine (Dipstick) 20 mg/dL (Neg-Trace); Squamous Epithelial 0-3 HPF (0-3); Urobilinogen Normal mg/dL (Less than 2); WBC/HPF 21-50 HPF (0-3)
[2020-02-13 12:02] LABS: Urine Culture Reflex Yes Yes
[2020-02-13 14:24] LABS: Hemoglobin 8.5 g/dL (12.0-16.0)
--- NOTE | 2020-02-13 19:11 | PDOC.HOSPP ---
- Subjective Encounter Date: 02/13/20 Encounter Time: 10:00 Subjective: No overnight events and patient remains minimally responsive. Opens eyes spontaneously but does not respond to voice. Discussed and changed code status based on patient's wishes per daughter and MPOA - Objective Vital Signs & Weight: Vital Signs (12 hours) Temp Pulse Resp BP Pulse Ox 02/13/20 16:52 97.7 F 74 18 102/68 99 02/13/20 10:56 98 F 79 20 109/71 100 02/13/20 08:20 97 02/13/20 07:40 98 F 76 18 110/70 97 Weight Admit Weight 183 lb Weight 183 lb I&O: 02/12/20 02/13/20 02/14/20 06:59 06:59 06:59 Intake Total 2190 Output Total 1625 Balance 565 Result Diagrams: 02/13/20 14:04 02/13/20 05:36 Additional Labs: Accuchecks 02/13/20 02/13/20 02/13/20 16:58 11:02 02:34 POC Glucose 118 H 99 99 Hospitalist ROS - Review of Systems ROS unobtainable: due to mental status - Medication Medications: Active Medications Generic Name Dose Route Start Last Admin Trade Name Freq PRN Reason Stop Dose Admin Enoxaparin Sodium 40 mg 02/13/20 09:00 02/13/20 08:20 Lovenox SC 40 mg 0900 LALITA Administration Cefepime HCl 1 gm/ Sodium 100 mls @ 200 mls/hr 02/13/20 05:00 02/13/20 17:16 Chloride IVPB 100 mls Q12H LALITA Administration Vancomycin HCl 1.25 gm/ Sodium 250 mls @ 166.67 mls/hr 02/13/20 08:00 08:20 Chloride IVPB 250 mls 0800,2000 LALITA Administration Levofloxacin 750 mg/ Device 150 mls @ 100 mls/hr 02/13/20 17:00 02/13/20 16: 15 IVPB 150 mls Q24HR LALITA Administration Sodium Chloride 1,000 mls @ 75 mls/hr 02/13/20 08:45 02/13/20 09:05 Normal Saline 0.9% IV Not Given .[id number] LALITA Levetiracetam 500 mg 02/13/20 09:00 02/13/20 08:20 Keppra PER TUBE 500 mg BID LALITA Administration - Exam General Appearance: ill appearing General - other findings: spontaneosly opens eyes Eye - other findings: pupils 3mm b/l minimally reactive to light Neck: no JVD Neck - other findings: trach in place, no significant secretions noted Heart: RRR, no murmur, no gallops, no rubs Respiratory: CTAB, no wheezes, no rales, no ronchi Gastrointestinal: soft, non-tender, non-distended, normal bowel sounds Gastrointestinal - other findings: PEG in place and clamped; appears unremarkable Extremities: no edema Psychiatric: somnolent Hosp A/P - Plan #fever -reported fever and increased pulmonary secretions; afebriel since admission adn HD stable, no increased secretions as inpatient -CXR underpenetrated,;difficult to assess or compare to previous CXR -first UA contaminated; repeat UA from meraz port positive for bacteria, elevated white count; pending culture -continue vanc, cefepime, and levo pending infectious workup -updated family regarding working diagnosis -started PEG feeds per aircraft structural design engineer #hemorrhagic stroke with surrounding edema -patient has been unresponsive since event -continue NS for permissive hypernatremia goal 155 DNAR
[2020-02-14] MEDS: Sodium Chloride 0.9% 1,000 ML IV SCH ×2 (02:41→10:38)
[2020-02-14] MEDS: Cefepime 1 GM in Sodium Chloride 0.9% 100 ML IVPB SCH ×2 (05:25→16:30)
[2020-02-14 06:09] VITALS: BMI 28.7
[2020-02-14 09:14] LABS: Sodium 158 mmol/L (136-145)
[2020-02-14] MEDS: Vancomycin HCl 1.25 GM in Sodium Chloride 0.9% 250 ML 250 ML IVPB SCH ×2 (10:37→20:58)
[2020-02-14] MEDS: levETIRAcetam 500 MG TAB PER TUBE SCH ×2 (10:38→20:58)
[2020-02-14] MEDS: Enoxaparin Sodium 40 MG/0.4 ML SYRINGE SC SCH (10:38)
--- NOTE | 2020-02-14 12:22 | PDOC.HOSPP ---
- Subjective Encounter Date: 02/14/20 Encounter Time: 08:00 Subjective: no overnight events. This morning, unchanged mentation. opens eyes spontaneosly but does not respond. - Objective Vital Signs & Weight: Vital Signs (12 hours) Temp Pulse Resp BP Pulse Ox 02/14/20 11:48 98.9 F 79 18 116/65 100 02/14/20 07:45 100 02/14/20 07:40 99.7 F H 79 22 H 112/66 100 02/14/20 03:33 97.6 F 80 18 103/63 98 Weight Admit Weight 183 lb Weight 182 lb 15.986 oz I&O: 02/13/20 02/14/20 02/15/20 06:59 06:59 06:59 Intake Total 3870 Output Total 2425 750 Balance 1445 -750 Result Diagrams: 02/13/20 14:04 02/14/20 08:46 Additional Labs: Accuchecks 02/14/20 02/14/20 02/13/20 11:49 05:11 23:26 POC Glucose 131 H 120 H 97 02/13/20 02/13/20 16:58 11:02 POC Glucose 118 H 99 Hospitalist ROS - Review of Systems ROS unobtainable: due to mental status - Medication Medications: Active Medications Generic Name Dose Route Start Last Admin Trade Name Rivasq PRN Reason Stop Dose Admin Enoxaparin Sodium 40 mg 02/13/20 09:00 02/14/20 10:38 Lovenox SC 40 mg 0900 LALITA Administration Cefepime HCl 1 gm/ Sodium 100 mls @ 200 mls/hr 02/13/20 05:00 02/14/20 05:25 Chloride IVPB 100 mls Q12H LALITA Administration Vancomycin HCl 1.25 gm/ Sodium 250 mls @ 166.67 mls/hr 02/13/20 08:00 10:37 Chloride IVPB 250 mls 0800,2000 LALITA Administration Levofloxacin 750 mg/ Device 150 mls @ 100 mls/hr 02/13/20 17:00 02/13/20 16: 15 IVPB 150 mls Q24HR LALITA Administration Sodium Chloride 1,000 mls @ 75 mls/hr 02/13/20 08:45 02/14/20 10:38 Normal Saline 0.9% IV 1,000 mls .[id number] LALITA Administration Levetiracetam 500 mg 02/13/20 09:00 02/14/20 10:38 Keppra PER TUBE 500 mg BID LALITA Administration - Exam General Appearance: ill appearing General - other findings: does not respond to command Eye: PERRL Eye - other findings: pupils 5mm and reactive to light Neck - other findings: trach in place; no visible secretions Heart: RRR, no murmur, no gallops, no rubs Respiratory: CTAB, no wheezes, no rales, no ronchi Gastrointestinal: soft, non-tender, non-distended Gastrointestinal - other findings: peG in place, receiving continuous glucerna Extremities - other findings: b/l upper forearm swelling Psychiatric: lethargic Hosp A/P - Plan #fever -per nurse, has thick tracheal secretions; requires suctioning about every 4 hours. -first UA contaminated; repeat UA from meraz port positive for bacteria, elevated white count; pending culture -repeat CXR in AM -continue vanc, cefepime, and levo pending infectious workup -updated family regarding working diagnosis -continue PEG feeding #UE swelling -may be venous thrombosis however workup will not private branch exchange service adviser considering recent hemorrrhagic stroke #hemorrhagic stroke with surrounding edema -patient has been unresponsive since event -continue NS for permissive hypernatremia goal 155 DNAR
[2020-02-14 19:29] LABS: Vancomycin, Trough 19.1 ug/mL
[2020-02-15] MEDS: Sodium Chloride 0.9% 1,000 ML IV SCH ×3 (03:38→23:25)
[2020-02-15] MEDS: Cefepime 1 GM in Sodium Chloride 0.9% 100 ML IVPB SCH (05:15)
[2020-02-15 05:27] LABS: Hemoglobin 8.8 g/dL (12.0-16.0)
[2020-02-15 05:36] LABS: Sodium 156 mmol/L (136-145)
[2020-02-15] MEDS: levETIRAcetam 500 MG TAB PER TUBE SCH ×2 (09:05→20:25)
[2020-02-15] MEDS: Enoxaparin Sodium 40 MG/0.4 ML SYRINGE SC SCH (09:05)
[2020-02-15] MEDS: Vancomycin HCl 1.25 GM in Sodium Chloride 0.9% 250 ML 250 ML IVPB SCH ×2 (10:17→20:23)
[2020-02-15] MEDS ORDERED: MEROPENEM 1 GM/50 ML 1 GM in Premix Bag 1 BAG IVPB SCH (14:30)
[2020-02-15] MEDS ORDERED: Meropenem 1 GM in Sodium Chloride 0.9% 100 ML IVPB SCH (14:30)
--- NOTE | 2020-02-15 15:40 | RAD ---
PORTABLE CHEST: Date: 02-15-2020 Provided Clinical History: Pneumonia. FINDINGS: Comparison 02-12-2020. Cardiac and mediastinal silhouette is unchanged in appearance. Tracheostomy demetria liance is again seen in similar position. There is obscuration of the left hemidiaphragm medially com patible with left basilar pleural and/or parenchymal opacity. The right lung appears grossly clear. T here is no evidence for pneumothorax. IMPRESSION: Left bilateral pleural and/or parenchymal opacity. POS: MIGNON
--- NOTE | 2020-02-15 18:22 | CON ---
DATE OF CONSULTATION: 02/15/2020 REASON FOR CONSULTATION: Persistence of fever. HISTORY OF PRESENT ILLNESS: A 74-year-old, familiar to me from previous visit, who has a history of type 2 diabetes, hyperlipidemia, hypertension, and recently diagnosed intraventricular hemorrhage without any evidence of aneurysms or infarct. She required trach and PEG and then in December, developed tachypnea, moderate neutrophilia with a left shift and she was treated for a possible resistant pneumonia with Zosyn and Zyvox. She was discharged on February 12 to LT[facility] has been readmitted 2 days ago because of worsening respiratory findings with tachypnea, abnormal chest x-ray. At that time, she had been in the long-term. The initial findings included pulse rate 85, respirations 26, temperature 97.4, blood pressure 112/79. She was tachypneic, has a trach collar with a tracheostomy present, 4 L O2 administration. Diminished breath sounds are noted bilaterally. Heart exam showed regular rate without murmurs. Abdomen was soft and nontender. Gastrostomy tube in place with normal appearance. Tracheostomy appeared normal as well. Initial findings also included a white cell count of 11.2, hemoglobin 8.4 , and platelets are 253 with 76% neutrophils. Sodium 151, creatinine 0.53. Urinalysis 21 to 50 wbc's. The patient was given a diagnosis of sepsis, but that was based on the reported fever that was not confirmed after admission. Possible pneumonia or urinary tract infection. The patient has been started on the meropenem, levofloxacin, and she is on vancomycin and meropenem. PAST MEDICAL HISTORY: Includes type 2 diabetes, hyperlipidemia, hypertension, prior CVA with hemorrhagic transformation, intraventricular hemorrhage, prior episodes of pneumonia. She has had previously demonstrable area of focal seizure activity on EEG and had some clonic movements in the past. PAST SURGICAL HISTORY: Trach and gastrostomy tube placement. SOCIAL HISTORY: I believe she is in a long-term, possibly cross[facility]. ALLERGIES: NONE. CURRENT MEDICATIONS: Doxycycline, Lovenox, glucagon, Humalog insulin, meropenem , and vancomycin. FAMILY HISTORY: Hypertension and type 2 diabetes. ALLERGIES: LATEX AND SHELLFISH. PHYSICAL EXAMINATION: VITAL SIGNS: T-max 100.3 just recently, now 98.7, blood pressure 116/72, pulse 94, respirations are 18 to 20, and O2 saturation 100%. SKIN: Exam shows a stage II decubitus in the presacral region and she has an indwelling [place] catheter. Peripheral IV access. Trach and PEG appear with normal exit sites. No lymphadenopathy. HEENT: Ocular movements conjugate. Sclerae white. Pupils are equal. NECK: Supple. No jugular vein distention. LUNGS: Symmetric breath sounds with coarse crackles heard in both right and left hemithorax, diffusely distributed. The patient has no gag reflex. ABDOMEN: Soft, not distended or tender. No ascites. No bladder distention. She has an indwelling Col[place] catheter. She is quadriparetic. I could not obtain any movements upon stimulation and she is in a vegetative state. LABORATORY DATA: White cell count 11.2, hemoglobin 8.4, now 8.8, and platelets are 253. Sodium 158. Creatinine 0.53. Respiratory virus PCR panel was negative. Tracheal aspirate for culture yielded polymicrobial bridgette. Chest x-ray demonstrated left bilateral pleural and parenchymal opacities. 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 The patient has a very ineffective cough and has overt aspiration. She is unable to cough up the secretions. Suctioning is of limited role here due to the severity of the impairment. We will evaluate her CT of chest again to see what the extent of the changes are noticeable. In this day and age , the possibility of COVID-19 needs to be considered and every patient who presents with decompensation of respiratory symptoms. We do have a scarcity of test material. Right now at this moment, we do not have any availability of swabs or viral culture media to submit the sample as I understand. In her case, it is more likely that plain aspiration is the reason for decompensation though. Consideration should be given to palliative care/hospice. Job ID: [id number] [facility]
--- NOTE | 2020-02-15 20:47 | CT ---
CT THORAX NONCONTRAST: DATE: 02/15/2020 HISTORY: 74-year-old female with aspiration pneumonia COMPARISON: 01/12/2020 FINDINGS: Tracheostomy tube remains. Previously, there was an alveolar infiltrate in the left lower lobe extending to the posterior pleura l surface. This has become larger and more confluent and is now a the consolidation that occupies the majority of the volume of the left lower lobe involving superior and most basilar segments, with extensive air bronchogram. In the contralateral right lower lobe, there is a dependent, rind of consolidation abutting the poste rior pleural surface involving superior and posterior basilar segments, occupying approximately 10-20% volume of the right hemithoracic cavity. There is a small right pleural effusion. No pneumothorax. Ectasia and tortuosity of thoracic aorta. Low density 1.4 cm lesion in right lobe of liver mentioned previously is unchanged. See previous report for recommendation. IMPRESSION: 1. Interval worsening of now moderately large large left lower lobe consolidation, consistent with pn eumonia or aspiration pneumonia. 2. New small right pleural effusion. 3. New posterior right lower lobe consolidation could either represent pneumonia or passive atelectas is.
--- NOTE | 2020-02-15 21:53 | PDOC.HOSPP ---
- Subjective Encounter Date: 02/15/20 Encounter Time: 07:00 Subjective: no overnight events. This morning, spiked a fever. continue to have weak cough reflex, thick secretions.CXR unchanged. CT chest ordered per ID recs c/w aspiration pneumonia. - Objective Vital Signs & Weight: Vital Signs (12 hours) Temp Pulse Resp BP Pulse Ox 02/15/20 19:29 98.9 F 88 28 H 111/71 100 02/15/20 17:00 98.7 F 99 24 H 100 02/15/20 16:35 98.7 F 99 24 H 116/77 100 02/15/20 11:02 100.2 F H 99 28 H 115/75 100 Weight Admit Weight 183 lb Weight 182 lb 15.986 oz I&O: 02/14/20 02/15/20 02/16/20 06:59 06:59 06:59 Intake Total 3870 1940 643 Output Total 2423 2900 1300 Balance 1445 -960 -657 Result Diagrams: 02/15/20 04:55 02/15/20 04:55 Additional Labs: Accuchecks 02/15/20 02/15/20 02/15/20 16:52 11:12 05:54 POC Glucose 117 H 126 H 131 H 02/15/20 02/14/20 01:05 15:33 POC Glucose 124 H 126 H Hospitalist ROS - Review of Systems ROS unobtainable: due to mental status - Medication Medications: Active Medications Generic Name Dose Route Start Last Admin Trade Name Freq PRN Reason Stop Dose Admin Enoxaparin Sodium 40 mg 02/13/20 09:00 02/15/20 09:05 Lovenox SC 40 mg 0900 LALITA Administration Vancomycin HCl 1.25 gm/ Sodium 250 mls @ 166.67 mls/hr 02/13/20 08:00 20:23 Chloride IVPB 250 mls 0800,2000 LALITA Administration Sodium Chloride 1,000 mls @ 75 mls/hr 02/13/20 08:45 02/15/20 19:42 Normal Saline 0.9% IV Not Given .[id number] LALITA Levetiracetam 500 mg 02/13/20 09:00 02/15/20 20:25 Keppra PER TUBE 500 mg BID LALITA Administration - Exam General Appearance: ill appearing Eye: PERRL, anicteric sclera ENT: normocephalic atraumatic, moist mucosa ENT - other findings: sweaty Respiratory: no wheezes, no rales, rhonchi, tachypneic Respiratory - other findings: wet lung sounds Gastrointestinal: soft, non-tender, non-distended Extremities: no edema Psychiatric: lethargic Hosp A/P - Plan #aspiration pneumonia -CT chest c/w aspiration pneumonia; spiked fever while being on vanc,cef, and levo -stop cefepime and levo; start shailesh and doxy for anaerobic and atypical coverage -pending culture finalizations -ID onboard -continue PEG feeding #UTI -UCx growing enterobacter -change meraz -continue Abx as abovementioned pending speciation #UE swelling -may be venous thrombosis however workup will not exchange underwriting consultant considering recent hemorrrhagic stroke #hemorrhagic stroke with surrounding edema -patient has been unresponsive since event -continue NS for permissive hypernatremia goal 155 DNAR Palliative team onboard
[2020-02-15] MEDS: MEROPENEM 1 GM/50 ML 1 GM in Premix Bag 1 BAG IVPB SCH (23:25)
[2020-02-16 05:12] LABS: #Eosinphils 0.3 thou/uL (0.0-0.7); #Lymphocytes 1.7 thou/uL (1.20-3.40); #Monocytes 0.8 thou/uL (0.11-0.59); #Neutrophils 7.2 thou/uL (1.40-6.50); %Basophils 0.3 % (0.0-1.0); %Lymphocytes 16.6 % (21.0-51.0); %Monocytes 7.7 % (0.0-10.0); %Neutrophils 72.5 % (42.0-75.0); Hemoglobin 8.4 g/dL (12.0-16.0); Mean Corpuscular HGB CONC 31.8 g/dL (32.0-36.0); Mean Corpuscular Hemoglobin 27.8 pg (27.0-31.0); Mean Corpuscular Volume 87.5 fL (78.0-98.0); Mean Platelet Volume 9.1 fL (7.4-10.4); Platelet Count 255 thou/uL (130-400); RBC Distribution Width 15.7 % (11.5-14.5); Red Blood Cell (RBC) Count 3.01 mill/uL (4.20-5.40)
[2020-02-16] MEDS: MEROPENEM 1 GM/50 ML 1 GM in Premix Bag 1 BAG IVPB SCH ×3 (05:33→22:51)
[2020-02-16 05:40] LABS: Anion Gap 13 mmol/L (10-20); BUN (Urea Nitrogen) 17 mg/dL (9.8-20.1); Calc. Creatinine Clearance 126 mL/min (70-130); Calcium 8.8 mg/dL (7.8-10.44); Carbon Dioxide 26 mmol/L (23-31); Chloride 124 mmol/L (98-107); Estimated GFR-MDRD Greater than 90; Glucose 117 mg/dL (83-110); Magnesium 2.3 mg/dL (1.6-2.6); Potassium 4.1 mmol/L (3.5-5.1); Sodium 159 mmol/L (136-145)
[2020-02-16 07:28] LABS: Vancomycin, Trough 19.3 ug/mL
[2020-02-16] MEDS: Enoxaparin Sodium 40 MG/0.4 ML SYRINGE SC SCH (09:04)
[2020-02-16] MEDS: levETIRAcetam 500 MG TAB PER TUBE SCH ×2 (09:04→20:11)
[2020-02-16] MEDS: Vancomycin HCl 1.25 GM in Sodium Chloride 0.9% 250 ML 250 ML IVPB SCH (09:50)
[2020-02-16] MEDS: Sodium Chloride 0.9% 1,000 ML IV SCH (13:49)
--- NOTE | 2020-02-16 15:01 | PDOC.HOSPP ---
- Subjective Encounter Date: 02/16/20 Encounter Time: 10:00 Subjective: no overnight events. Patient remains awake but unresponsive though less perspiration. afebrile since changing ABx 02/14. - Objective Vital Signs & Weight: Vital Signs (12 hours) Temp Pulse Resp BP Pulse Ox 02/16/20 12:07 98.4 F 89 20 119/75 97 02/16/20 08:19 98.5 F 69 20 109/72 98 02/16/20 03:13 99.2 F 80 28 H 124/69 100 Weight Admit Weight 183 lb Weight 182 lb 15.986 oz I&O: 02/15/20 02/16/20 02/17/20 06:59 06:59 06:59 Intake Total 1940 2413 30 Output Total 2903 8065 Balance -960 -262 30 Result Diagrams: 02/16/20 04:49 02/16/20 04:49 Additional Labs: Accuchecks 02/16/20 02/16/20 02/15/20 12:08 05:10 23:39 POC Glucose 130 H 127 H 121 H 02/15/20 16:52 POC Glucose 117 H Hospitalist ROS - Review of Systems ROS unobtainable: due to mental status - Medication Medications: Active Medications Generic Name Dose Route Start Last Admin Trade Name Freq PRN Reason Stop Dose Admin Enoxaparin Sodium 40 mg 02/13/20 09:00 02/16/20 09:04 Lovenox SC 40 mg 0900 LALITA Administration Vancomycin HCl 1.25 gm/ Sodium 250 mls @ 166.67 mls/hr 02/13/20 08:00 09:50 Chloride IVPB 250 mls 0800,2000 LALITA Administration Sodium Chloride 1,000 mls @ 75 mls/hr 02/13/20 08:45 02/16/20 13:49 Normal Saline 0.9% IV 1,000 mls .[id number] LALITA Administration Meropenem 1 gm/ Device 50 mls @ 200 mls/hr 02/15/20 22:00 02/16/20 13:48 IVPB 50 mls Q8HR LALITA Administration Doxycycline Hyclate 100 mg/ 100 mls @ 100 mls/hr 02/15/20 21:00 02/16/20 10: 31 Sodium Chloride IVPB 100 mls Q12HR LALITA Administration Levetiracetam 500 mg 02/13/20 09:00 02/16/20 09:04 Keppra PER TUBE 500 mg BID LALITA Administration - Exam General Appearance: ill appearing General - other findings: alert, not responding to voice Eye: PERRL ENT: normocephalic atraumatic Neck: no JVD Heart: RRR, no murmur, no gallops, no rubs Respiratory: no wheezes, no rales, rhonchi, tachypneic Respiratory - other findings: tachypnic ~ 20 Gastrointestinal: soft, non-distended, normal bowel sounds Extremities - other findings: UE edema unchanged Hosp A/P - Plan #aspiration pneumonia -CT chest c/w aspiration pneumonia; spiked fever while being on vanc,cef, and levo -apparent thick sputum draining from trach -RCx oral bridgette -continue shailesh; stop doxy -started guaifenasin and n-acetylcystein -ID onboard -continue PEG feeding; n-acetylcytein #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
[2020-02-16] MEDS ORDERED: Diabetic Tussin 200 MG/10 ML UDCUP PO SCH (17:00)
[2020-02-16] MEDS ORDERED: Acetylcysteine 20% 200 MG/ML 30 ML VIAL INH SCH (17:45)
[2020-02-16] MEDS: Acetylcysteine 20% 200 MG/ML 30 ML VIAL INH SCH ×2 (18:50→23:09)
[2020-02-16] MEDS: Diabetic Tussin 200 MG/10 ML UDCUP PER TUBE SCH ×2 (19:09→20:11)
[2020-02-17] MEDS: Diabetic Tussin 200 MG/10 ML UDCUP PER TUBE SCH ×6 (00:21→21:33)
[2020-02-17] MEDS: Sodium Chloride 0.9% 1,000 ML IV SCH ×3 (05:20→21:36)
[2020-02-17] MEDS: MEROPENEM 1 GM/50 ML 1 GM in Premix Bag 1 BAG IVPB SCH ×3 (05:33→21:33)
[2020-02-17 05:54] LABS: #Eosinphils 0.3 thou/uL (0.0-0.7); #Lymphocytes 1.6 thou/uL (1.20-3.40); #Monocytes 0.7 thou/uL (0.11-0.59); %Basophils 0.1 % (0.0-1.0); %Eosinophils 3.3 % (0.0-10.0); %Lymphocytes 14.8 % (21.0-51.0); %Monocytes 6.7 % (0.0-10.0); %Neutrophils 75.1 % (42.0-75.0); Hemoglobin 8.6 g/dL (12.0-16.0); Mean Corpuscular HGB CONC 31.4 g/dL (32.0-36.0); Mean Corpuscular Hemoglobin 27.4 pg (27.0-31.0); Mean Corpuscular Volume 87.1 fL (78.0-98.0); Mean Platelet Volume 9.5 fL (7.4-10.4); Platelet Count 266 thou/uL (130-400); RBC Distribution Width 15.6 % (11.5-14.5); Red Blood Cell (RBC) Count 3.13 mill/uL (4.20-5.40); White Blood Cell (WBC) Count 10.7 thou/uL (4.8-10.8)
[2020-02-17 06:11] LABS: Anion Gap 11 mmol/L (10-20); BUN (Urea Nitrogen) 16 mg/dL (9.8-20.1); Calc. Creatinine Clearance 122 mL/min (70-130); Carbon Dioxide 28 mmol/L (23-31); Chloride 122 mmol/L (98-107); Estimated GFR-MDRD Greater than 90; Glucose 130 mg/dL (83-110); Potassium 3.9 mmol/L (3.5-5.1); Sodium 157 mmol/L (136-145)
[2020-02-17] MEDS: Acetylcysteine 20% 200 MG/ML 30 ML VIAL INH SCH ×3 (07:13→18:23)
[2020-02-17] MEDS: Enoxaparin Sodium 40 MG/0.4 ML SYRINGE SC SCH (10:11)
[2020-02-17] MEDS: levETIRAcetam 500 MG TAB PER TUBE SCH ×2 (10:12→21:33)
--- NOTE | 2020-02-17 13:31 | PQF ---
CLINICAL DOCUMENTATION IMPROVEMENT CLARIFICATION FORM: ICD-10 Updated PLEASE DO AN ADDENDUM TO THE PROGRESS NOTE WITH ANY DOCUMENTATION UPDATES OR ADDITIONS AND CARRY THROUGH TO DC SUMMARY. THANK YOU. DATE: 02/17/2020 ATTN: Dr. Diaz Please exercise your independent, professional judgment in responding to the clarification form. Clinical indicators are provided on the bottom of this form for your review Please check appropriate box(es): [ ] Sepsis present on admission [ x ] Sepsis NOT present on admission [ ] Unable to determine [ ] Due to UTI due to indwelling meraz catheter. [ ] Due to UTI not due to indwelling meraz catheter. [ ] Due to other [x ] Localized infection without sepsis [ ] Other diagnosis [ ] Unable to determine For continuity of documentation, please document condition throughout progress notes and discharge summary. Thank You. CLINICAL INDICATORS - SIGNS / SYMPTOMS / LABS / RESULTS AND LOCATION IN MR ER Nurses Assess. Tubes and Ports: Indwelling urinary catheter present. Present upon arrival H&P 02/11: VS: BP 108/78, pulse 80, resp. 25, O2 sat 99% on 4L trach collar LAB: White count 13.3 I/P: Sepsis, however, that is based on reported fever that I cannot confirm here in our ED or [place]. Most likely, source would appear to be respiratory or urinary tract infection. 02/14 (miah) aspiration pneumonia UTI -UCX growing enterobacter -change meraz 02/15 (miah) UTI due to MDR enterobacter cloacae - susceptible to meropenem RISKS: ER Record 02/11: PE : Meraz catheter in place. H&P 02/11: History of hemorrhagic cerebrovascular accident with persistent GCS around 3 to 4 with trach and peg. 02/14 () aspiration pneumonia. UTI. TREATMENT: 02/14 (miah) - change meraz ID Consult MAR: Order 02/14: Meropenem 1 gm IV q 8 hr Thank you, Ingrid (This form is maintained as a part of the permanent medical record) 2014 [employer]. All Rights Reserved Ingrid Chowdary RN, BSN [email or web address] [facility]
--- NOTE | 2020-02-17 18:37 | PRG ---
DATE OF SERVICE: 02/17/2020 SUBJECTIVE: The patient is as expected unresponsive. OBJECTIVE: VITAL SIGNS: T-max was 100.3 on February 14, temperature has come down since. BP 102/69, pulse 87, O2 sats 98%. LUNGS: Sounds are improving. There is less inspiratory crackles, less airway secretions noted. They must have been suctioning her more often. ABDOMEN: Soft, a little bit distended. [place] catheter in place and G tube in place. EXTREMITIES: The quadriplegia is noted. She does not interact with the examiners and is in a vegetative state. LABORATORY DATA: The white cell count is 10.7, hemoglobin 8.6, platelets 266. Creatinine 0.54, and respiratory virus PCR was not detected. Blood cultures, no growth at 48 hours. Urine culture with Enterobacter cloacae. 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 The amount of secretions in the airways and lungs has decreased significantly, probably it is due to suctioning plus antimicrobial therapy. The CT demonstrated worsening of left lower lobe consolidation consistent with aspiration pneumonia as expected and a new right lower lobe consolidation, likely either passive atelectasis or pneumonia. Overall, she seems to be improving. Again, this is going to be an ongoing recurring process and Palliative Care/Hospice would be a reasonable approach. Typically, the duration of therapy for those complications is around 5 to 8 days and there is no evidence of development of empyema or abscess at this point in time. Job ID: [id number]
--- NOTE | 2020-02-17 22:26 | PDOC.HOSPP ---
- Subjective Encounter Date: 02/17/20 Encounter Time: 10:00 Subjective: no overnight events. This morning, appears somewhat better, less perspiration and tracheal secretions, but mentation remains unchanged. Explained to daughter at bedside that even if we manage to treat this acute event, it will likely recur and the patient's quality of life is unlikley to significantly improve. Though initially wanted to take Ms. Tyson home with home health, explained to her that LTAC will be more suitable and will reduce toll on family as well. - Objective Vital Signs & Weight: Vital Signs (12 hours) Temp Pulse Resp BP Pulse Ox 02/17/20 19:22 98.7 F 87 20 107/69 98 02/17/20 18:22 83 22 H 99 02/17/20 16:00 98.0 F 87 18 102/69 98 02/17/20 13:56 86 16 97 02/17/20 11:25 99.0 F 91 20 107/71 97 Weight Admit Weight 183 lb Weight 182 lb 15.986 oz I&O: 02/16/20 02/17/20 02/18/20 06:59 06:59 06:59 Intake Total 2413 1830 1570 Output Total 2675 1250 1550 Balance -262 580 20 Result Diagrams: 02/17/20 05:20 02/17/20 05:20 Additional Labs: Accuchecks 02/17/20 02/17/20 02/17/20 18:28 11:26 05:23 POC Glucose 122 H 110 135 H 02/16/20 23:39 POC Glucose 138 H Hospitalist ROS - Review of Systems ROS unobtainable: due to mental status - Medication Medications: Active Medications Generic Name Dose Route Start Last Admin Trade Name Freq PRN Reason Stop Dose Admin Acetylcysteine 600 mg 02/16/20 19:00 02/17/20 18:23 Mucomyst 20% INH 600 mg [id number] LALITA Administration Albuterol/Ipratropium 3 ml 02/17/20 01:00 02/17/20 18:22 Duoneb NEB 3 ml [id number] LALITA Administration Enoxaparin Sodium 40 mg 02/13/20 09:00 02/17/20 10:11 Lovenox SC 40 mg 0900 LALITA Administration Guaifenesin 200 mg 02/16/20 17:00 02/17/20 21:33 Robitussin Sf PER TUBE 200 mg Q4HR LALITA Administration Meropenem 1 gm/ Device 50 mls @ 200 mls/hr 02/15/20 22:00 02/17/20 21:33 IVPB 50 mls Q8HR LALITA Administration Sodium Chloride 1,000 mls @ 50 mls/hr 02/17/20 08:00 02/17/20 21:36 Normal Saline 0.9% IV 1,000 mls .Q20H LALITA Administration Levetiracetam 500 mg 02/13/20 09:00 02/17/20 21:33 Keppra PER TUBE 500 mg BID LALITA Administration Sodium Chloride 10 ml 02/16/20 21:00 02/17/20 22:19 Flush - Normal Saline IVF Not Given Q12HR LALITA - Exam General Appearance: NAD, awake alert Eye: PERRL Neck: no JVD Heart: RRR, no murmur, no gallops, no rubs Respiratory: CTAB, no wheezes, no rales, no ronchi Gastrointestinal: soft, non-tender, non-distended, normal bowel sounds Extremities: no edema Hosp A/P - Plan #aspiration pneumonia -improving on meropenem and mucolytics -ID onboard -continue PEG feeding; n-acetylcytein, guaifenasin -explained to daughter that quality of life unlikely to significantly improve even if acute infection resolves #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 Pending placement. Likely DC 02/17
[2020-02-18] MEDS: Diabetic Tussin 200 MG/10 ML UDCUP PER TUBE SCH ×6 (00:10→21:17)
[2020-02-18] MEDS: Acetylcysteine 20% 200 MG/ML 30 ML VIAL INH SCH ×4 (00:49→18:46)
[2020-02-18] MEDS: MEROPENEM 1 GM/50 ML 1 GM in Premix Bag 1 BAG IVPB SCH ×3 (05:42→21:19)
[2020-02-18] MEDS: Enoxaparin Sodium 40 MG/0.4 ML SYRINGE SC SCH (08:17)
[2020-02-18] MEDS: levETIRAcetam 500 MG TAB PER TUBE SCH ×2 (08:17→23:34)
[2020-02-18] MEDS: Sodium Chloride 0.9% 1,000 ML IV SCH (18:30)
[2020-02-18] MEDS: levETIRAcetam 500 mg/5 ml Oral Solution PER TUBE SCH (21:17)
--- NOTE | 2020-02-18 22:53 | PDOC.HOSPP ---
- Subjective Encounter Date: 02/18/20 Encounter Time: 10:00 Subjective: no overnight events. No significant change. patient remains unresponsive. pending placement in home hospice after discussing inability for home with home health with daughters due to lack of PCP. - Objective Vital Signs & Weight: Vital Signs (12 hours) Temp Pulse Resp BP Pulse Ox 02/18/20 20:00 100.2 F H 104 H 18 108/70 96 02/18/20 18:46 98 18 97 02/18/20 15:25 98.3 F 91 18 110/74 97 02/18/20 12:19 86 16 98 02/18/20 11:28 98.9 F 93 14 117/75 99 Weight Admit Weight 183 lb Weight 182 lb 15.986 oz I&O: 02/17/20 02/18/20 02/19/20 06:59 06:59 06:59 Intake Total 1830 3010 1450 Output Total 1250 2875 1025 Balance 580 135 425 Result Diagrams: 02/17/20 05:20 02/17/20 05:20 Additional Labs: Accuchecks 02/18/20 02/18/20 02/18/20 18:35 11:18 05:54 POC Glucose 111 H 106 136 H 02/17/20 23:51 POC Glucose 118 H Hospitalist ROS - Review of Systems ROS unobtainable: due to mental status - Medication Medications: Active Medications Generic Name Dose Route Start Last Admin Trade Name Freq PRN Reason Stop Dose Admin Acetylcysteine 600 mg 02/16/20 19:00 02/18/20 18:46 Mucomyst 20% INH 600 mg [id number] LALITA Administration Albuterol/Ipratropium 3 ml 02/17/20 01:00 02/18/20 18:46 Duoneb NEB 3 ml [id number] LALITA Administration Enoxaparin Sodium 40 mg 02/13/20 09:00 02/18/20 08:17 Lovenox SC 40 mg 0900 LALITA Administration Guaifenesin 200 mg 02/16/20 17:00 02/18/20 21:17 Robitussin Sf PER TUBE 200 mg Q4HR LALITA Administration Meropenem 1 gm/ Device 50 mls @ 200 mls/hr 02/15/20 22:00 02/18/20 21:19 IVPB 50 mls Q8HR LALITA Administration Sodium Chloride 1,000 mls @ 50 mls/hr 02/17/20 08:00 02/18/20 18:30 Normal Saline 0.9% IV 1,000 mls .Q20H LALITA Administration Levetiracetam 500 mg 02/18/20 21:00 02/18/20 21:17 Keppra Oral Solution PER TUBE 500 mg BID LALITA Administration Sodium Chloride 10 ml 02/16/20 21:00 02/18/20 21:19 Flush - Normal Saline IVF Not Given Q12HR LALITA - Exam General Appearance: ill appearing General - other findings: unresponsive Neck: no JVD Heart: RRR, no murmur, no gallops, no rubs Respiratory: CTAB, no wheezes, no rales, no ronchi, tachypneic Gastrointestinal: soft, non-distended, normal bowel sounds Extremities: no edema Psychiatric - other findings: alert but unresponsive Hosp A/P - Plan #aspiration pneumonia -continue meropenem and mucolytics #UTI due to MDR enterobacter cloacae -susceptible to meropenem #UE swelling -may be venous thrombosis however 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 Pending home hospice. Likely DC /
[2020-02-19] MEDS: Acetylcysteine 20% 200 MG/ML 30 ML VIAL INH SCH ×3 (01:21→12:52)
[2020-02-19] MEDS: Diabetic Tussin 200 MG/10 ML UDCUP PER TUBE SCH ×5 (01:59→18:30)
[2020-02-19] MEDS: Acetaminophen 650 MG/20.3 ML UDCUP PER TUBE PRN ×2 (04:26→09:59)
[2020-02-19] MEDS: MEROPENEM 1 GM/50 ML 1 GM in Premix Bag 1 BAG IVPB SCH ×2 (04:27→14:17)
[2020-02-19] MEDS: levETIRAcetam 500 mg/5 ml Oral Solution PER TUBE SCH (10:00)
[2020-02-19] MEDS: Enoxaparin Sodium 40 MG/0.4 ML SYRINGE SC SCH (10:00)
[2020-02-19] MEDS: Sodium Chloride 0.9% 1,000 ML IV SCH (10:02)
--- NOTE | 2020-02-19 12:57 | PQF ---
CLINICAL DOCUMENTATION IMPROVEMENT CLARIFICATION FORM: ICD-10 Updated PLEASE DO AN ADDENDUM TO THE PROGRESS NOTE WITH ANY DOCUMENTATION UPDATES OR ADDITIONS AND CARRY THROUGH TO DC SUMMARY. THANK YOU. DATE: 02/19/2020 ATTN: Dr. Diaz Please exercise your independent, professional judgment in responding to the clarification form. Clinical indicators are provided on the bottom of this form for your review Please check appropriate box(s): [ x ] Quadriplegia [ ] Functional Quadriplegia (specify underlying cause) [ ] Weakness (please specify anatomical area) Specify: [ ] Non dominant side [ ] Dominant side [ ] Other diagnosis [ ] Unable to determine In addition, please specify: Present on Admission (POA): [ x ] Yes [ ] No [ ] Unable to determine CLINICAL INDICATORS - SIGNS / SYMPTOMS / LABS/ RESULTS AND LOCATION IN MR 02/14 (Bashir) PE: Abdomen: She is quadriparetic. I could not obtain any movements upon stimulation and she is in a vegetative state. 02/14 (Joe) hemorrhagic stroke with surrounding edema -pt has been unresponsive since event 02/16 (Bashir) extremities: The quadriplegia is noted. RISKS: H&P 02/11: History of hemorrhagic cerebrovascular accident with persistent GCS around 3 to 4 with trach and peg. DM. HTN. Hx of seizure do. TREATMENT / RESULTS AND LOCATION IN MR Nursing Order 02/11: Activity: Bedrest - strict prn Nursing Order 02/12: Tube feed. Enteral Feeding -continuous. Nursing Order 02/12: Peg Tube: 500 cc water q6 h Nursing Order 02/15: Tracheostomy Care prn Thank you, Ingrid (This form is maintained as a part of the permanent medical record) 2014 [employer]. All Rights Reserved Ingrid Chowdary RN, BSN [email or web address] [facility]
--- NOTE | 2020-02-19 14:08 | SPC ---
Sonographic guided left upper extremity PICC placement HISTORY: UTI. FINDINGS: After explaining the procedure and answering all questions, the left upper extremity was pr epped and draped in usual sterile fashion. Sterile technique, buffered local anesthesia, sonographic guidance, and a 22-gauge needle were used to carefully access the left brachial vein. Sta ndard technique was used to place the tip of a 4 [place] single lumen PICC so that its tip lies at the level of the superior vena cava. Catheter was flushed and secured externally. Patient tolerated p rocedure well and was returned in unchanged condition. Fluoroscopy time 0.2 minutes. IMPRESSION : Left upper extremity PICC is ready for use.
[2020-02-19 15:54] VITALS: BP 94/63; TEMP 98.7
--- NOTE | 2020-02-20 10:44 | DIS ---
DATE OF ADMISSION: 02/12/2020 DATE OF DISCHARGE: 02/19/2020 HOSPITAL COURSE: Ms. Tyson is a 74-year-old female with a recent medical history of hemorrhagic stroke, after which she has become nonresponsive, who presented for fever and increased sputum production from [facility]. She was diagnosed with aspiration pneumonia and MDR urinary tract infection. 1. Aspiration pneumonia. The patient has been unresponsive since her hemorrhagic stroke, after which the patient had a PEG and trach placed. The patient had symptoms and imaging findings consistent with aspiration pneumonia. She was started on broad-spectrum antibiotics and Infectious Disease was consulted. The patient has weak cough reflex and the family was made aware that the prognosis is poor and recommended that the patient go to hospice. However, the family requested that the patient be discharged to home with home health after believing that the patient's responsiveness has improved. Even though the patient initially clinically improved in terms of the fever and alertness, she remained unresponsive throughout the inpatient stay. The patient was discharged back to her facility after making the accepting physician and team aware that the patient will continue to developed fevers, which might worsen after stopping antibiotics due to continued aspiration pneumonia and pneumonitis. The patient was discharged on mucolytics, which improved her thick secretions during her inpatient stay, and on three additional days of antibiotics to treat her pneumonia as well as urinary tract infection. The family as well as the accepting facility were advised to start the process of hospice as soon as possible in order to provide the patient care in the context of high unlikelihood of improvement. 1. Urinary tract infection. The patient's urine culture grew multi-drug resistant Enterobacter cloacae. It was susceptible only to . The patient was treated with meropenem for a total of seven days based on recommendations from Infectious Disease. A PICC line was placed in the patient on the day of discharge. On the day of discharge, the patient was hemodynamically stable, even though mildly tachycardic. She developed fever on the morning of discharge that was low grade, was saturating 97% on 6 L of oxygen through her trach collar. PHYSICAL EXAMINATION: GENERAL APPEARANCE: Ill-appearing, unresponsive. NECK: No JVD. HEART: Regular rate and rhythm. No murmur. No gallops. No rubs. RESPIRATORY: Weak cough reflex, clear to auscultation bilaterally. No wheezes, no rales, no rhonchi. Tachypneic at 20s. GI: Soft, nondistended. Normal bowel sounds. PEG in place and functional. Feeding 60 mL/hour of Glucerna. EXTREMITIES: No edema. PSYCHIATRIC: Alert, but unresponsive. Job ID: [id number]
== END 2020-02-19 18:30 | DRG 177 ==
LOC: ERS 19:19 → SURG B 20:17 → ERS 21:23
PROVIDERS: ADMIT Internal Medicine; ATTEND Internal Medicine
PROC: 02HV33Z Insertion of Infusion Device into Superior Vena Cava, Percutaneous Approach (ICD-10-PCS; principal; 2020-02-19)
PROC: B548ZZA Ultrasonography of Superior Vena Cava, Guidance (ICD-10-PCS; 2020-02-19)
DX: J69.0 Pneumonitis due to inhalation of food and vomit (principal); R40.2312 Coma scale, best motor response, none, at arrival to emergency department; R40.2212 Coma scale, best verbal response, none, at arrival to emergency department; G82.50 Quadriplegia, unspecified; E87.0 Hyperosmolality and hypernatremia; N39.0 Urinary tract infection, site not specified; Z66 Do not resuscitate; E11.9 Type 2 diabetes mellitus without complications; E78.5 Hyperlipidemia, unspecified; E78.00 Pure hypercholesterolemia, unspecified; I10 Essential (primary) hypertension; G40.909 Epilepsy, unspecified, not intractable, without status epilepticus; R40.2142 Coma scale, eyes open, spontaneous, at arrival to emergency department; B96.89 Other specified bacterial agents as the cause of diseases classified elsewhere; Z86.73 Personal history of transient ischemic attack (TIA), and cerebral infarction without residual deficits; Z79.899 Other long term (current) drug therapy; Z79.84 Long term (current) use of oral hypoglycemic drugs; Z79.01 Long term (current) use of anticoagulants; Z91.041 Radiographic dye allergy status; Z91.013 Allergy to seafood; Z79.4 Long term (current) use of insulin; Z93.0 Tracheostomy status; Z93.1 Gastrostomy status; Z91.040 Latex allergy status
CPT/HCPCS: 36415; 36416; 36569; 71045; 71250; 80048; 80202; 81001; 83735; 84295; 85014; 85018; 85025; 87070; 87205; 87633; 94640; B4087; C1751; J0692; J1644; J1650; J1956; J2185; J3370; J3490; J7050; J7608; J7620